=== PATIENT | male | born 1950 | race African-American/Black ===

== ENCOUNTER 2016-11-03 19:47 | Inpatient (IN) | payer OTHER ==
--- NOTE | 2016-11-03 20:24 | PDOC ---
History of Present Illness - General History Source: Patient Exam Limitations: No Limitations - History of Present Illness Initial Comments: 11/03/16 20:47 The patient is a 66 year old male with significant past medical history of etoh abuse, HIV, and hypertension who presents to the ED [facility] from [facility] with right upper quadrant pain/right lower chest pain. Patient reports last year he was diagnosed with a lung infection that required surgery and drainage of the infection. At that time, he also had a rib removed. He presents today with 3 days of increasing pain with associated nausea, vomiting and diarrhea. He also has complaints of chills, dry cough and decreased appetite. States he is compliant with medications if he is able to tolerate it. The patient denies fever, diaphoresis, SOB, and palpitations. Allergies: NKDA Social History: etoh abuse and drug use Past Surgical History: lung infection s/p surgery and rib removal PCP: None reported <Mabel Mosqueda - Last Filed: 11/04/16 04:56> - General History Source: Patient <Yaw Gutierrez - Last Filed: 11/05/16 19:23> - General Chief Complaint: Pain Stated Complaint: NAUSEA/VOMITING Time Seen by Provider: 11/03/16 20:17 Past History <Mabel Mosqueda - Last Filed: 11/04/16 04:56> - Past Medical History Anemia: No Asthma: No Cancer: No Cardiac Disorders: No CVA: No COPD: No CHF: No Dementia: No Diabetes: No GI Disorders: No Disorders: No HTN: Yes Hypercholesterolemia: No HIV: Yes Kidney Stones: No Liver Disease: No Suicide Attempt (Hx): No Seizures: Yes Thyroid Disease: No - Surgical History Abdominal Surgery: No Appendectomy: No Cardiac Surgery: No Cholecystectomy: No Lung Surgery: No Neurologic Surgery: No Orthopedic Surgery: No - Reproductive History Testicular Surgery: No - Psycho/Social/Smoking Cessation Hx Anxiety: No Suicidal Ideation: No Smoking History: Unknown if ever smoked Have you smoked in the past 12 months: No Number of Cigarettes Smoked Daily: 0 Cigars Per Day: 0 Information on smoking cessation initiated: No 'Breaking Loose' booklet given: 10/27/12 Hx Alcohol Use: Yes Drug/Substance Use Hx: Yes Substance Use Type: Alcohol Hx Substance Use Treatment: Yes (04/11/13 to 09/22/13 [facility]) <Yaw Gutierrez - Last Filed: 11/05/16 19:23> - Past Medical History Allergies/Adverse Reactions: Allergies Allergy/AdvReac Type Severity Reaction Status Date / Time No Known Allergies Allergy Verified 11/03/16 16:43 Home Medications: Ambulatory Orders Emtricitabine/Tenofovir [Truvada -] 1 tab PO DAILY 04/28/12 Efavirenz [Sustiva -] 600 mg PO HS #0 tablet 05/02/12 Review of Systems - Review of Systems Able to Perform ROS?: Yes Comments:: 11/03/16 20:48 CONSTITUTIONAL: +decreased appetite, chills Absent: fever, diaphoresis, generalized weakness, malaise HEENT: Absent: rhinorrhea, nasal congestion, throat pain, throat swelling, difficulty swallowing, mouth swelling, ear pain, eye pain, visual Changes CARDIOVASCULAR: +R lower chest pain Absent: syncope, palpitations, irregular heart rate, lightheadedness, peripheral edema RESPIRATORY: +dry cough Absent: shortness of breath, dyspnea with exertion, orthopnea, wheezing, stridor, hemoptysis GASTROINTESTINAL: +RUQ pain, nausea, vomiting, diarrhea Absent: abdominal distension, constipation , melena, hematochezia GENITOURINARY: Absent: dysuria, frequency, urgency, hesitancy, hematuria, flank pain, genital pain MUSCULOSKELETAL: Absent: myalgia, arthralgia, joint swelling SKIN: Absent: rash, itching, pallor NEUROLOGIC: Absent: headache, focal weakness or paresthesias, dizziness, unsteady gait, seizure, mental status changes, bladder or bowel incontinence PSYCHIATRIC: Absent: anxiety, depression, suicidal or homicidal ideation, hallucinations. <Mabel Mosqueda - Last Filed: 11/04/16 04:56> *Physical Exam - Vital Signs Last Vital Signs Temp Pulse Resp BP Pulse Ox 98.6 F 104 H 16 126/93 96 11/03/16 19:58 11/03/16 19:58 11/03/16 19:58 11/03/16 19:58 11/03/16 19:58 - Physical Exam Comments: 11/03/16 20:48 GENERAL: Well developed, well nourished. Awake and alert. Moderate distress. HEENT: Normocephalic, atraumatic. PERRLA, EOMI. No conjunctival pallor. Sclera are non- icteric. Moist mucous membranes. Oropharynx is clear. NECK: Supple. Full ROM. No JVD. Carotid pulses 2+ and symmetric, without bruits. No thyromegaly. No lymphadenopathy. CARDIOVASCULAR: Regular rate and rhythm. No murmurs, rubs, or gallops. Distal pulses are 2+ and symmetric. PULMONARY: Moderate respiratory distress. Conversational dyspnea. Decreased breath sounds bilaterally, greater on the left-side. Scattered wheezing. ABDOMINAL: Soft. Moderate abdominal tenderness, worsening in right upper quadrant. Non- distended. + guarding and slight rebound. No rigidity. Normoactive bowel sounds. MUSCULOSKELETAL Normal range of motion at all joints. No bony deformities or tenderness. No CVA tenderness. EXTREMITIES: No cyanosis. No clubbing. No edema. No calf tenderness. SKIN: Warm and dry. Normal capillary refill. No rashes. No jaundice. NEUROLOGICAL: Alert, awake, appropriate. Cranial nerves 2-12 intact. Moving all extremities. No focal gross neurological deficits. PSYCHIATRIC: Cooperative. Good eye contact. Appropriate mood and affect. <Mabel Mosqueda - Last Filed: 11/04/16 04:56> - Vital Signs Last Vital Signs Temp Pulse Resp BP Pulse Ox 98.6 F 104 H 16 126/93 96 11/03/16 19:58 11/03/16 19:58 11/03/16 19:58 11/03/16 19:58 11/03/16 19:58 <Yaw Gutierrez - Last Filed: 11/05/16 19:23> Heart Score/ECG Review - ECG Impressions Comment:: 11/04/16 00:26 Sinus tachycardia @106bpm Otherwise normal ECG <Mabel Mosqueda - Last Filed: 11/04/16 04:56> ED Treatment Course - LABORATORY CBC & Chemistry Diagram: 11/03/16 21:00 11/03/16 21:00 - RADIOLOGY Radiograph Interpretation: 11/04/16 04:57 EXAM: ABDOMEN & PELVIS CT W/O CONTR Reviewed by Imaging control area operator: FINDINGS:Liver: Diffuse low-attenuation suggesting fatty infiltration Spleen: Normal Pancreas: Normal Gallbladder: Mildly distended with small stones, sludge. There is no gallbladder wall thickening Stomach: There is a small hiatal hernia. There is gastrointestinal contrast in the distal esophagus suggesting a component of reflux. There is some thickening of the distal esophagus There is some thickening of the gastric antrum. Small bowel: Normal Large bowel: Normal Appendix: Not specifically visualized. Adrenals: No mass Kidneys: There is a 4 mm left renal calyceal stone and 7 mm left calyceal stone. There is no hydronephrosis cysts, or renal mass. Vascular : There are mild atherosclerotic changes in the abdominal aorta. Lymphatic column no enlarged nodes. Skeletal and normal Peritoneum: There is no free peritoneal air, or fluid. Pelvis: Prostate: Normal Rectum: Normal Inferior thorax colon there is a right sided pleural fluid collection which is small. There is a coarse calcification in the right lower lobe which appears partially collapsed IMPRESSION: Gastroesophageal reflux with mild esophagitis. Right-sided pleural fluid is nonspecific, possibly related to pleural inflammation, or pulmonary inflammation from aspiration. Correlation with prior chest radiographs is recommended. Nephrolithiasis. Correlation with urinalysis is recommended <Mabel Mosqueda - Last Filed: 11/04/16 04:56> - LABORATORY CBC & Chemistry Diagram: 11/04/16 06:42 11/05/16 10:00 <Yaw Gutierrez - Last Filed: 11/05/16 19:23> Medical Decision Making - Medical Decision Making 11/05/16 19:22 Dr. Gutierrez: The scribe's documentation has been prepared under my direction and personally reviewed by me in its entirery. I confirm that the note above accurately reflects all work, treatment, procedures, and medical decision making performed by me. <Yaw Gutierrez - Last Filed: 11/05/16 19:23> *DC/Admit/Observation/Transfer - Attestations Scribe Attestion: 11/03/16 20:48 Documentation prepared by Mabel Mosqueda, acting as medical staff assistant for Yaw Gutierrez MD <Mabel Mosqueda - Last Filed: 11/04/16 04:56> - Discharge Dispostion Admit: Yes <Yaw Gutierrez - Last Filed: 11/05/16 19:23> Diagnosis at time of Disposition: Alcohol dependence, Pleural effusion, right Abdominal pain Qualifiers: Abdominal location: right upper quadrant Qualified Code(s): R10.11 - Right upper quadrant pain
[2016-11-03] MEDS ORDERED: ONDANSETRON 4 MG/2 ML VIAL IVPUSH STA (20:29)
[2016-11-03] MEDS ORDERED: SODIUM CHLORIDE 1,000 ML IV STA (20:29)
[2016-11-03] MEDS ORDERED: morphine CARPU-JECT 2 MG/1 ML DISP.SYRIN IVPUSH ONE ×2 (20:29→23:54)
[2016-11-03] MEDS ORDERED: ONDANSETRON 4 MG/2 ML VIAL ONE (21:09)
[2016-11-03] MEDS ORDERED: morphine CARPU-JECT 4 MG/1 ML DISP.SYRIN ONE ×2 (21:09→23:56)
[2016-11-03 21:13] LABS: BASOPHIL 0.8 % (0-2.0); EOSINOPHIL 0.5 % (0-4.5); MCH 34.6 pg (25.7-33.7); MCHC 34.4 g/dl (32.0-35.9); MEAN CELL VOLUME 100.6 fl (80-96); MEAN PLT VOLUME 9.3 fl (7.5-11.1); NEUTROPHILS 58.1 % (42.8-82.8); PLATELET COUNT 132 K/MM3 (134-434); RDW 14.3 % (11.9-15.9)
[2016-11-03 21:24] LABS: INR 1.14 (0.82-1.09); PROTHROMBIN TIME (PATIENT) 12.6 SEC (9.98-11.88)
[2016-11-03 21:34] LABS: ALBUMIN 3.6 g/dl (3.4-5.0); AMYLASE 81 U/L (25-115); ANION GAP 21 (8-16); CALCIUM 8.2 mg/dL (8.5-10.1); CO2 20 mmol/L (21-32); COCKROFT - GAULT 102.94; CREATININE 0.8 mg/dL (0.7-1.3); GLUCOSE,RANDOM 89 mg/dL (74-106); MAGNESIUM 1.7 mg/dL (1.8-2.4); SGOT/AST 374 U/L (15-37); SGPT/ALT 113 U/L (12-78)
[2016-11-03 21:38] LABS: ALK PHOS 123 U/L (45-117); BILIRUBIN,TOTAL 1.1 mg/dL (0.2-1.0); TOT PROT 7.7 g/dl (6.4-8.2)
[2016-11-04] MEDS ORDERED: LORAZEPAM CARPU-JECT 2 MG/ML DISP.SYRIN IVPUSH ONE (00:22)
[2016-11-04] MEDS ORDERED: ONDANSETRON 4 MG/2 ML VIAL IVPUSH STA (00:23)
[2016-11-04] MEDS ORDERED: LORAZEPAM CARPU-JECT 2 MG/ML DISP.SYRIN ONE (00:28)
--- NOTE | 2016-11-04 00:54 | PN ---
<Justin Dow - Last Filed: 11/04/16 00:54> Teaching Attending Note Name of Resident: Justus Dailey <Tye Alcazar - Last Filed: 11/04/16 01:02> Teaching Attending Note ATTENDING PHYSICIAN STATEMENT I saw and evaluated the patient. I reviewed the resident's note and discussed the case with the resident. I agree with the resident's findings and plan as documented. SUBJECTIVE: The patient is a 66 year old male that presents to the ED from [facility] complaining of 1 month history of epigastric and RUQ abdominal pain that has increased in intensity over the course of time and appears to be 10/10 last 24 hours. He was originally hospitalized to detox due to alcohol abuse however, transferred to [facility] for further eval of abdominal pain. He reports occ nausea and vomiting, inability to tolerate fluids and food. He also reports tremors and signs of alcohol withdrawal. His last drink was consumed 24 hours ago. Complains of dizziness, tremors, gene weak, fatigue, and severe headache. PMH: HIV, HTN, and alcohol abuse. Questionable hx of empyema of right lung Allergies: NKDA Social History: alcohol abuse (approximately 4 pints of liquor daily). Family: Father: alcohol abuse Past Surgical History: Thoracotomy PCP: None reported OBJECTIVE: Vital Signs: Last Vital Signs Temp Pulse Resp BP Pulse Ox 98.6 F 104 H 16 126/93 96 11/03/16 19:58 11/03/16 19:58 11/03/16 19:58 11/03/16 19:58 11/03/16 19:58 Physical Exam: GENERAL: (+) Awake, alert, and fully oriented. Distress secondary to pain, tremors HEENT: (+) Poor dentition. Atraumatic. PERRLA, EOMI. dry mucous membranes. No JVD LUNGS: No distress, speaks full sentences, clear to auscultation bilaterally HEART: Regular rate and rhythm, normal S1 and S2, no murmurs, rubs or gallops, peripheral pulses normal and equal bilaterally. ABDOMEN: (+) Severe abdominal tend in epig area and RUQ area, guarding and rebound EXTREMITIES: Normal inspection, Normal range of motion, no edema. No clubbing or cyanosis. NEUROLOGICAL: Cranial nerves II through XII grossly intact. Normal speech, normal gait, no focal sensorimotor deficits SKIN: Warm, Dry, normal turgor, no rashes or lesions noted. Labs: CBCD WBC 4.0 K/mm3 (4.0-10.0) D 11/03/16 21:00 RBC 3.80 M/mm3 (4.00-5.60) L 11/03/16 21:00 Hgb 13.2 GM/dL (11.7-16.9) 11/03/16 21:00 Hct 38.3 % (35.4-49) 11/03/16 21:00 MCV 100.6 fl (80-96) H 11/03/16 21:00 MCHC 34.4 g/dl (32.0-35.9) 11/03/16 21:00 RDW 14.3 % (11.9-15.9) 11/03/16 21:00 Plt Count 132 K/MM3 (134-434) L D 11/03/16 21:00 MPV 9.3 fl (7.5-11.1) 11/03/16 21:00 CMP Sodium 135 mmol/L (136-145) L 11/03/16 21:00 Potassium 4.3 mmol/L (3.5-5.1) 11/03/16 21:00 Chloride 94 mmol/L (98-107) L 11/03/16 21:00 Carbon Dioxide 20 mmol/L (21-32) L D 11/03/16 21:00 Anion Gap 21 (8-16) H 11/03/16 21:00 BUN 12 mg/dL (7-18) D 11/03/16 21:00 Creatinine 0.8 mg/dL (0.7-1.3) 11/03/16 21:00 Creat Clearance w eGFR > 60 (>60) 11/03/16 21:00 Calcium 8.2 mg/dL (8.5-10.1) L 11/03/16 21:00 Total Bilirubin 1.1 mg/dL (0.2-1.0) H D 11/03/16 21:00 AST 374 U/L (15-37) H D 11/03/16 21:00 ALT 113 U/L (12-78) H D 11/03/16 21:00 Alkaline Phosphatase 123 U/L (45-117) H D 11/03/16 21:00 Total Protein 7.7 g/dl (6.4-8.2) 11/03/16 21:00 Albumin 3.6 g/dl (3.4-5.0) 11/03/16 21:00 Imaging: EXAM#: TYPE/EXAM: RESULT: [id number] CT/ABDOMEN PELVIS CT W/O CONTR [id number] CT/ CHEST CT WITHOUT CONTRAST Chest CT without contrast Clinical information: right lower chest pain Multiplanar imaging was performed. As requested intravenous contrast was not administered. No prior CT studies are available at this facility for direct comparison. A small right-sided pleural effusion is seen which may be loculated. Linear and curvilinear material consistent with surgical sutures are seen within the right lower chest posteriorly. There is mild to moderate right hilar posterior retraction probably on a postsurgical basis. Apparent postsurgical changes seen involving the right midthoracic ribs posteriorly and laterally. No pneumothorax or infiltrate is seen. There is no obvious lymphadenopathy on noncontrast imaging. No definite cardiac enlargement is noted. There is no pericardial effusion. No aortic aneurysm is seen. Along the right mid diaphragm ventrally note is made of an apparent small defect into which a small portion of the right hepatic lobe bulges. The visualized osseous structures demonstrate no obvious CT evidence of acute pathology or neoplastic disease. IMPRESSION: A small right pleural effusion is noted which may be loculated. Postsurgical changes are seen within the right lower chest. There is mild focal bulging along the right diaphragm ventrally which contains a small portion of the right hepatic lobe. This finding may be on the basis of a small diaphragmatic hernia versus representing a lobulated contour of the diaphragm. Direct comparison with previous CT studies is suggested if available from a different facility as well as close follow-up CT. Abdomen and pelvis CT without contrast Clinical information: right upper quadrant pain Multiplanar imaging was performed. As requested no intravenous or enteric contrast was administered. There is prominent diffuse fatty infiltration of the liver with associated mild hepatomegaly. No obvious hepatic mass lesion is seen on noncontrast imaging. As discussed in the chest CT report note is made of mild focal bulging along the right mid diaphragm ventrally which may represent a small diaphragmatic hernia containing a small portion of the right hepatic lobe. There is no evidence of pneumoperitoneum, free intraperitoneal fluid or bowel obstruction. A 7 mm nonobstructing left renal lower pole calculus is noted. There is a 1 mm nonobstructing right renal lower pole calculus. No radiopaque gallbladder calculus is identified. The gallbladder demonstrates mildly increased intraluminal density suggestive of inspissated bile/sludge. There is no definite gallbladder wall thickening or pericholecystic fluid accumulation. No biliary tract dilatation is seen. The spleen, pancreas, adrenal glands demonstrate no discrete noncontrast abnormality allowing for respiratory motion artifact. There is no aortic aneurysm. No definite lymphadenopathy is seen. There is possible partial visualization of the appendix. No indirect CT signs of acute appendicitis are noted. Sigmoid diverticulosis is seen without evidence of acute diverticulitis. The urinary bladder is somewhat distended with a current volume of approximately 500 mL. There is no gross small bowel abnormality allowing for motion artifact. The visualized osseous structures demonstrate no obvious CT evidence of acute pathology or neoplastic disease. IMPRESSION: No definite CT findings of acute pathology identified. Prominent diffuse hepatic steatosis. As also noted in the chest CT report the right mid diaphragm ventrally demonstrates mild focal superior bulging which could represent a small diaphragmatic hernia containing a small portion of the right hepatic lobe versus representing an intact diaphragm with a lobulated contour. Inspissated bile/sludge is noted within the gallbladder lumen. Bilateral nonobstructing renal calculi. The current urinary bladder volume is approximately 500 mL which could be on a physiologic basis versus early retention. Correlate clinically. Sigmoid diverticulosis. Reported By: Alexander Fu MD 11/03/16 8623 ASSESSMENT AND PLAN: 1. Epigas and RUQ ab pain 2. Positive guarding and peritoneal signs on exam 3. Hx of HIV with unknown CD4 status 4. Evidence of loculated pleural effusion on the right side consistent with prior hx of empyema for which pt underwent for ectomy 5. Evidence of gallbladder sludge 6. Radiographic evidence of diaphragmatic hernia 7. Suspected urinary retention 8. Prerenal azotemia 9. Alcohol withdrawal 1. 1 month history of epigastric and ruq ab pain that now has progressed to 10/ 10 in intensity and is associated with rebound and guarding. CT abdomen and pelvis does not show any acute abnormalities that could correlate with intensity of his symptoms, however this was a non contrast study. There is evidence of gallbladder sludge and biliary obstruction cannot be excluded. Peptic ulcer disease is a possibility as well. - Stat dose of Zosyn - Keep NPO - IVF - IV PPI - IV morphine for pain control - Will obtain CT scan with oral contrast for better eval - Serial abdominal exams - Hidescan when stable - Monitor liver enzymes - Consider surgical evaluation if no improvement 2. History of HIV- unknow CD4 status - Obtain CD4 count and viral load 3. Acute alcohol withdrawal -IVF with diamin, multivitamin, and folic acid -Start alcohol withdrawal protocol with IV ativan PRN 4. Possible urinary retention -Place torres catheter Admit to inpatient. Documentation prepared by Tye Alcazar, acting as medical device for Dr. Victor M MD.
--- NOTE | 2016-11-04 00:58 | HP ---
CHIEF COMPLAINT: RUQ Pain PCP: Does not see a regular PCP HISTORY OF PRESENT ILLNESS: Patient is a 64 year old male with significant PMH of Alcohol abuse, HTN, HIV who presents to ED [facility] detox with abdominal pain. Patient states he has had epigastric-RUQ pain intermittently for the last 1 month that has progressive gotten more intense. Over the last 24 hours, the pain has become severe 10/10 and is concentrated in the RUQ. He was in [facility] for alcohol detox but was sent here upon increase in abdominal pain for further evaluation. Patient also notes nausea, vomiting & diarrhea in the last few days. Last drink was 24 hours ago. ER course was notable for: (1)CT Chest shows diaphragmatic hernia with right hepatic lobe bulging (2)afebrile, without leukocytosis, stable vitals (3)pain management & alcohol withdrawal protocol started in ED Recent Travel: NONE REPORTED PAST MEDICAL HISTORY: ABOVE PAST SURGICAL HISTORY: THORACOTOMY Social History: Smoking: FORMER Alcohol: 4 PINTS OF HARD LIQUOR DAILY Drugs: NONE REPORTED Family History: Father: Alcohol abuse Mother: NONE REPORTED Allergies No Known Allergies Allergy (Verified 11/03/16 16:43) HOME MEDICATIONS: Home Medications Medication Instructions Recorded Emtricitabine/Tenofovir [Truvada -] 1 tab PO DAILY 04/28/12 Efavirenz [Sustiva -] 600 mg PO HS #0 tablet 05/02/12 REVIEW OF SYSTEMS CONSTITUTIONAL: (+)fever, chills Absent: diaphoresis, generalized weakness, malaise, loss of appetite, weight change HEENT: Absent: rhinorrhea, nasal congestion, throat pain, throat swelling, difficulty swallowing, mouth swelling, ear pain, eye pain, visual changes CARDIOVASCULAR: Absent: chest pain, syncope, palpitations, irregular heart rate, lightheadedness , peripheral edema RESPIRATORY: Absent: cough, shortness of breath, dyspnea with exertion, orthopnea, wheezing, stridor, hemoptysis GASTROINTESTINAL: (+)abdominal pain, diarrhea, vomiting Absent: abdominal distension, constipation, melena, hematochezia GENITOURINARY: Absent: dysuria, frequency, urgency, hesitancy, hematuria, flank pain, genital pain MUSCULOSKELETAL: Absent: myalgia, arthralgia, joint swelling, back pain, neck pain SKIN: Absent: rash, itching, pallor HEMATOLOGIC/IMMUNOLOGIC: Absent: easy bleeding, easy bruising, lymphadenopathy, frequent infections ENDOCRINE: Absent: unexplained weight gain, unexplained weight loss, heat intolerance, cold intolerance NEUROLOGIC: Absent: headache, focal weakness or paresthesias, dizziness, unsteady gait, seizure, mental status changes, bladder or bowel incontinence PSYCHIATRIC: Absent: anxiety, depression, suicidal or homicidal ideation, hallucinations. PHYSICAL EXAMINATION GENERAL: Awake, alert, and fully oriented, in moderate distress during movement/ palpation of abdomen. Tremors in bilateral upper extremities HEENT: Atraumatic, EOMI, PERRLA, No lymphadenopathy noted, dry mucous membranes LUNGS: Breath sounds equal, clear to auscultation bilaterally. No wheezes, and no crackles. No accessory muscle use. HEART: Regular rate and rhythm, normal S1 and S2 without murmur, rub or gallop. ABDOMEN: (+) guarding & rigidity; moderate-severe tenderness to palpation diffusely but most notably in RUQ EXTREMITIES: 2+ pulses, warm, well-perfused. No calf tenderness. No peripheral edema. NEUROLOGICAL: Cranial nerves II-XII intact. Normal speech. Unable to observe gait due to clinical condition. PSYCHIATRIC: Cooperative. Good eye contact. Appropriate mood and affect. SKIN: Warm, dry, normal turgor, no rashes or lesions noted, normal capillary refill. Vital Signs Temperature 98.6 F 11/03/16 19:58 Pulse Rate 104 H 11/03/16 19:58 Respiratory Rate 16 11/03/16 19:58 Blood Pressure 126/93 11/03/16 19:58 O2 Sat by Pulse Oximetry (%) 96 11/03/16 19:58 IMAGING: CT Chest: IMPRESSION: A small right pleural effusion is noted which may be loculated. Postsurgical changes are seen within the right lower chest. There is mild focal bulging along the right diaphragm ventrally which contains a small portion of the right hepatic lobe. This finding may be on the basis of a small diaphragmatic hernia versus representing a lobulated contour of the diaphragm. Direct comparison with previous CT studies is suggested if available from a different facility as well as close follow-up CT. CT Abdomen Pelvis w/o contrast: IMPRESSION: No definite CT findings of acute pathology identified. Prominent diffuse hepatic steatosis. As also noted in the chest CT report the right mid diaphragm ventrally demonstrates mild focal superior bulging which could represent a small diaphragmatic hernia containing a small portion of the right hepatic lobe versus representing an intact diaphragm with a lobulated contour. Inspissated bile/sludge is noted within the gallbladder lumen. Bilateral nonobstructing renal calculi. The current urinary bladder volume is approximately 500 mL which could be on a physiologic basis versus early retention. Correlate clinically. Sigmoid diverticulosis. ASSESSMENT/PLAN: #RUQ/Epigastric Pain, Diaphragmatic Hernia vs PUD vs Biliary obstruction -CT shows diaphragmatic hernia on RIGHT, which contains a small portion of the right hepatic lobe -will repeat imaging with oral contrast to r/o acute abdomen due to perforation -Zosyn given in ED -NPO, IVF NS@75cc/hr, IV PPI -Morphine pain management -monitor LFTs -may require surgery consult, pending CT results & serial abdominal examinations #Gallbladder sludge noted on CT -may need HIDA scan when stable #HIV History, unknown CD4 -states he takes his anti-retrovirals daily -restarted home meds: Truvada, Sustiva -needs CD4, Viral load testing #Alcohol Abuse w/ withdrawal symptoms -Librium taper protocol started -Thiamine, multivitamin, Folic Acid -to return to [facility] once discharged #Possible urinary retention -Pirce catheter placed, re-evaluate Prophylaxis -holding anticoagulation until we can r/o PUD or perforations -IV PPI FEN -NPO, IVF NS@75, Monitor electrolytes Visit type - Emergency Visit Emergency Visit: Yes ED Registration Date: 11/03/16 Care time: The patient presented to the Emergency Department on the above date and was hospitalized for further evaluation of their emergent condition. - New Patient This patient is new to me today: Yes Date on this admission: 11/04/16 - Critical Care Critical Care patient: No
[2016-11-04] MEDS ORDERED: chlordiazePOXIDE HCL 25 MG CAPSULE PO PRN (01:03)
[2016-11-04] MEDS: SODIUM CHLORIDE 1,000 ML IV SCH ×2 (01:28→09:53)
[2016-11-04] MEDS ORDERED: PANTOPRAZOLE SODIUM 40 MG VIAL ONE (03:05)
[2016-11-04] MEDS: PANTOPRAZOLE SODIUM 100 ML IVPB SCH ×2 (03:19→12:50)
[2016-11-04] MEDS: chlordiazePOXIDE HCL 25 MG CAPSULE PO SCH ×4 (05:09→22:31)
[2016-11-04] MEDS ORDERED: chlordiazePOXIDE HCL 25 MG CAPSULE ONE (05:10)
[2016-11-04 06:57] LABS: EOSINOPHIL 0.8 % (0-4.5); MCH 35.2 pg (25.7-33.7); MCHC 34.5 g/dl (32.0-35.9); MEAN CELL VOLUME 101.8 fl (80-96); MEAN PLT VOLUME 8.9 fl (7.5-11.1); NEUTROPHILS 62.9 % (42.8-82.8); PLATELET COUNT 102 K/MM3 (134-434); RDW 13.9 % (11.9-15.9); WHITE BLOOD COUNT 4.3 K/mm3 (4.0-10.0)
[2016-11-04 07:24] LABS: ALBUMIN 3.6 g/dl (3.4-5.0); ALK PHOS 114 U/L (45-117); ANION GAP 16 (8-16); BILIRUBIN,TOTAL 1.3 mg/dL (0.2-1.0); CALCIUM 8.4 mg/dL (8.5-10.1); CO2 25 mmol/L (21-32); COCKROFT - GAULT 117.64; CREATININE 0.7 mg/dL (0.7-1.3); GLUCOSE,RANDOM 92 mg/dL (74-106); SGPT/ALT 105 U/L (12-78); TOT PROT 7.5 g/dl (6.4-8.2)
[2016-11-04 07:39] LABS: SGOT/AST 298 U/L (15-37)
[2016-11-04 09:10] LABS: URINE APPEARANCE CLEAR; URINE BILIRUBIN NEGATIVE (NEGATIVE); URINE COLOR YELLOW; URINE GLUCOSE (UA) NEGATIVE (NEGATIVE); URINE KETONE 2+ (NEGATIVE); URINE LEUK ESTERASE NEGATIVE (NEGATIVE); URINE NITRITE NEGATIVE (NEGATIVE); URINE UROBILINOGEN NEGATIVE E.U./dl (0.2-1.0)
[2016-11-04 09:14] LABS: URINE BLOOD 2+ (NEGATIVE); URINE PROTEIN 2+ (NEGATIVE)
[2016-11-04 09:16] LABS: URINE HYALINE CAST 3 /lpf; URINE MUCUS RARE; URINE RBC 2 /hpf (0-3); URINE WBC 1 /hpf (3-5)
[2016-11-04] MEDS: ONDANSETRON 4 MG/2 ML VIAL IVPB PRN ×2 (09:53→18:30)
[2016-11-04] MEDS: MULTIVITAMINS (DAILY MVI) TABLET (FP) PO SCH (09:54)
[2016-11-04] MEDS: THIAMINE HCL 100 MG TABLET (FP) PO SCH (09:54)
[2016-11-04] MEDS ORDERED: PIPERACILLIN/TAZOB 3.375 GM/50 ML PRE-DOCKED IVPB SCH ×2 (10:00)
[2016-11-04] MEDS: morphine CARPU-JECT 2 MG/1 ML DISP.SYRIN IVPUSH PRN ×2 (11:18→17:11)
--- NOTE | 2016-11-04 12:32 | EKG ---
Test Reason : Blood Pressure : / mmHG Vent. Rate : 106 BPM Atrial Rate : 106 BPM P-R Int : 146 ms QRS Dur : 068 ms QT Int : 330 ms P-R-T Axes : 066 064 054 degrees QTc Int : 438 ms SINUS TACHYCARDIA OTHERWISE NORMAL ECG NO PREVIOUS ECGS AVAILABLE Confirmed by MALIK KUNZ, ERIC ([id number]) on 11/04/2016 12:32:35 PM Referred By: Confirmed By:ERIC GAN MD
[2016-11-04] MEDS: METRONIDAZOLE 500 MG PREMIXED 100 ML IVPB SCH ×2 (16:00→20:30)
[2016-11-04 17:33] VITALS: BMI 23.3
[2016-11-04] MEDS: CEFTRIAXONE 50 ML IVPB SCH (17:43)
[2016-11-04] MEDS: EMTRICITABINE 200MG/TENOFOVIR 300MG PO SCH (17:43)
[2016-11-04] MEDS ORDERED: morphine CARPU-JECT 2 MG/1 ML DISP.SYRIN IVPUSH PRN (18:07)
[2016-11-04] MEDS ORDERED: SODIUM CHLORIDE 1,000 ML IV SCH (18:07)
[2016-11-04] MEDS: EFAVIRENZ 600 MG TABLET PO SCH (22:31)
[2016-11-05] MEDS: METRONIDAZOLE 500 MG PREMIXED 100 ML IVPB SCH ×3 (03:28→17:14)
[2016-11-05] MEDS: chlordiazePOXIDE HCL 25 MG CAPSULE PO SCH ×4 (05:37→22:46)
[2016-11-05] MEDS: MULTIVITAMINS (DAILY MVI) TABLET (FP) PO SCH (09:50)
[2016-11-05] MEDS: THIAMINE HCL 100 MG TABLET (FP) PO SCH (09:50)
[2016-11-05] MEDS: EMTRICITABINE 200MG/TENOFOVIR 300MG PO SCH (09:51)
[2016-11-05] MEDS: CEFTRIAXONE 50 ML IVPB SCH (10:45)
[2016-11-05 11:07] LABS: ALBUMIN 3.8 g/dl (3.4-5.0); ALK PHOS 114 U/L (45-117); ANION GAP 18 (8-16); BILIRUBIN,TOTAL 1.4 mg/dL (0.2-1.0); CALCIUM 8.9 mg/dL (8.5-10.1); CO2 21 mmol/L (21-32); COCKROFT - GAULT 89.17; CREATININE 0.8 mg/dL (0.7-1.3); GLUCOSE,RANDOM 92 mg/dL (74-106); SGPT/ALT 110 U/L (12-78); TOT PROT 7.8 g/dl (6.4-8.2)
[2016-11-05 11:12] LABS: SGOT/AST 267 U/L (15-37)
[2016-11-05] MEDS: PANTOPRAZOLE SODIUM 100 ML IVPB SCH (11:22)
[2016-11-05] MEDS ORDERED: amLODIPine BESYLATE 5 MG TABLET (FP) PO ONE (17:30)
--- NOTE | 2016-11-05 17:30 | PN ---
Physical Exam: SUBJECTIVE: Patient seen and examined. He is angry because he is hungry and wants to eat. He says his friend brought him kayla castaneda last night OBJECTIVE: Vital Signs Period Temp Pulse Resp BP Sys/Mckeon Pulse Ox Last 24 Hr 97.9 F-99.5 F 99-115 20-20 149-159/68-104 99-99 PE Neuro: alert, awake, cn 2-12intact Pulm: CTAB CV: s1 s2 rrr no mrg Abd: s nt nd + bs ExT: warm, no le edema Laboratory Results - last 24 hr 11/05/16 10:00 Sodium 133 L Potassium 3.7 Chloride 94 L Carbon Dioxide 21 Anion Gap 18 H BUN 7 D Creatinine 0.8 Creat Clearance w eGFR > 60 Random Glucose 92 Calcium 8.9 Total Bilirubin 1.4 H AST 267 H ALT 110 H Alkaline Phosphatase 114 Total Protein 7.8 Albumin 3.8 Active Medications Generic Name Dose Route Start Last Admin Trade Name Freq PRN Reason Stop Dose Admin Chlordiazepoxide HCl 25 mg 11/04/16 01:03 Librium - PO 11/07/16 01:02 Q4H PRN WITHDRAWAL(CONT SUBST) Chlordiazepoxide HCl 25 mg 11/05/16 05:00 11/05/16 17:14 Librium - PO 11/05/16 23:01 25 mg [id number] MARGO Administration Chlordiazepoxide HCl 15 mg 11/06/16 05:00 Librium - PO 11/06/16 23:01 [id number] MARGO Efavirenz 600 mg 11/04/16 22:00 11/04/16 22:31 Sustiva - PO 600 mg HS MARGO Administration Emtricitabine/Tenofovir 1 tab 11/04/16 10:00 11/05/16 09:51 Truvada PO 1 tab DAILY MARGO Administration Pantoprazole Sodium 100 mls @ 200 mls/hr 11/04/16 02:00 11/05/16 11:22 Protonix 40mg Ivpb (Pre-Docked) IVPB 200 mls/hr DAILY MARGO Administration Ceftriaxone Sodium 50 mls @ 100 mls/hr 11/04/16 15:30 11/05/16 10:45 Rocephin 1gm Ivpb (Pre-Docked) IVPB 100 mls/hr DAILY MARGO Administration Metronidazole 100 mls @ 100 mls/hr 11/04/16 15:30 11/05/16 17:14 Flagyl 500mg Premixed Ivpb - IVPB 100 mls/hr Q8H-IV MARGO Administration Sodium Chloride 1,000 mls @ 83 mls/hr 11/04/16 18:07 11/04/16 18:20 Normal Saline - IV 83 mls/hr ASDIR MARGO Administration Morphine Sulfate 2 mg 11/04/16 18:07 Morphine Injection - IVPUSH Q4H PRN PAIN Multivitamins/Minerals/Vitamin C 1 tab 11/04/16 10:00 11/05/16 09:50 Tab-A-Vit - PO 1 tab DAILY MARGO Administration Ondansetron HCl 4 mg 11/04/16 00:58 11/04/16 18:30 Zofran Injection IVPB 4 mg Q6H PRN Administration NAUSEA Thiamine HCl 100 mg 11/04/16 10:00 11/05/16 09:50 Vitamin B1 - PO 100 mg DAILY MARGO Administration Assessment: 64 year old male with PMHx of Alcohol abuse, HTN, HIV admitted from [facility] detox with epigastric RUQ pain intermittent [id number], worsening overnight. Plan: 1. Cholelithiasis and sludge, likely passed stone - HIDA scan negative - Advance diet - LFTs down trending - Continue flagyl/ceftriaxone (day 2) 2. HIV History, unknown CD4 - Continue Truvada, Sustiva 3. Alcohol Abuse w/ withdrawal symptoms -Librium taper protocol underway -Thiamine, multivitamin, Folic Acid - To return to [facility] on discharge 4. HTN - Start norvasc 5. dvt ppx - Lovenox sq Visit type - Emergency Visit Emergency Visit: Yes ED Registration Date: 11/03/16 Care time: The patient presented to the Emergency Department on the above date and was hospitalized for further evaluation of their emergent condition. - New Patient This patient is new to me today: Yes Date on this admission: 11/05/16 - Critical Care Critical Care patient: No
[2016-11-05] MEDS ORDERED: PT OWN MED DRAWER 7, Y5N ONE (22:26)
[2016-11-05] MEDS: EFAVIRENZ 600 MG TABLET PO SCH (22:47)
[2016-11-06] MEDS: METRONIDAZOLE 500 MG PREMIXED 100 ML IVPB SCH ×3 (02:10→18:19)
[2016-11-06] MEDS: chlordiazePOXIDE 5 MG CAPSULE PO SCH ×4 (05:17→22:24)
[2016-11-06] MEDS: CEFTRIAXONE 50 ML IVPB SCH (10:48)
[2016-11-06] MEDS: ENOXAPARIN NA (PORCINE) 40 MG/0.4 ML DISP.SYRIN SQ SCH (10:49)
[2016-11-06] MEDS: THIAMINE HCL 100 MG TABLET (FP) PO SCH (10:49)
[2016-11-06] MEDS: MULTIVITAMINS (DAILY MVI) TABLET (FP) PO SCH (10:49)
[2016-11-06] MEDS: amLODIPine BESYLATE 5 MG TABLET (FP) PO SCH (10:49)
[2016-11-06] MEDS: EMTRICITABINE 200MG/TENOFOVIR 300MG PO SCH (10:50)
[2016-11-06 11:00] LABS: ALBUMIN 3.6 g/dl (3.4-5.0); ANION GAP 13 (8-16); CALCIUM 9.2 mg/dL (8.5-10.1); CO2 20 mmol/L (21-32); COCKROFT - GAULT 101.91; CREATININE 0.7 mg/dL (0.7-1.3); GLUCOSE,RANDOM 147 mg/dL (74-106); SGOT/AST 188 U/L (15-37); SGPT/ALT 95 U/L (12-78)
[2016-11-06 11:02] LABS: ALK PHOS 103 U/L (45-117); BILIRUBIN,TOTAL 1.1 mg/dL (0.2-1.0); TOT PROT 7.5 g/dl (6.4-8.2)
[2016-11-06] MEDS ORDERED: POTASSIUM CHLORIDE ORAL LIQUID 20 MEQ/15 ML PO ONE (11:30)
[2016-11-06] MEDS: PANTOPRAZOLE SODIUM 100 ML IVPB SCH (13:28)
--- NOTE | 2016-11-06 17:40 | PN ---
Physical Exam: SUBJECTIVE: Patient seen and examined. He says he feels much better, he would like to go home soon. Denies fever, chills, abd pain, n/v. OBJECTIVE: Vital Signs Period Temp Pulse Resp BP Sys/Mckeon Pulse Ox Last 24 Hr 98.9 F-99.2 F 88-110 20-20 120-153/70-97 99 PE Neuro: alert, awake, cn 2-12intact Pulm: CTAB CV: s1 s2 rrr no mrg Abd: s nt nd + bs ExT: warm, no le edema Laboratory Results - last 24 hr 11/06/16 10:10 Sodium 135 L Potassium 3.2 L Chloride 102 Carbon Dioxide 20 L Anion Gap 13 BUN 10 D Creatinine 0.7 Creat Clearance w eGFR > 60 Random Glucose 147 H D Calcium 9.2 Total Bilirubin 1.1 H D AST 188 H D ALT 95 H Alkaline Phosphatase 103 Total Protein 7.5 Albumin 3.6 Active Medications Generic Name Dose Route Start Last Admin Trade Name Freq PRN Reason Stop Dose Admin Amlodipine Besylate 5 mg 11/06/16 10:00 11/06/16 10:49 Norvasc - PO 5 mg DAILY MARGO Administration Chlordiazepoxide HCl 25 mg 11/04/16 01:03 Librium - PO 11/07/16 01:02 Q4H PRN WITHDRAWAL(CONT SUBST) Chlordiazepoxide HCl 15 mg 11/06/16 05:00 11/06/16 10:49 Librium - PO 11/06/16 23:01 15 mg [id number]-INC MARGO Administration Efavirenz 600 mg 11/04/16 22:00 11/05/16 22:47 Sustiva - PO 600 mg HS MARGO Administration Emtricitabine/Tenofovir 1 tab 11/04/16 10:00 11/06/16 10:50 Truvada PO 1 tab DAILY MARGO Administration Enoxaparin Sodium 40 mg 11/06/16 10:00 11/06/16 10:49 Lovenox - SQ 40 mg DAILY MARGO Administration Pantoprazole Sodium 100 mls @ 200 mls/hr 11/04/16 02:00 11/06/16 13:28 Protonix 40mg Ivpb (Pre-Docked) IVPB 200 mls/hr DAILY MARGO Administration Ceftriaxone Sodium 50 mls @ 100 mls/hr 11/04/16 15:30 11/06/16 10:48 Rocephin 1gm Ivpb (Pre-Docked) IVPB 100 mls/hr DAILY MARGO Administration Metronidazole 100 mls @ 100 mls/hr 11/04/16 15:30 11/06/16 11:37 Flagyl 500mg Premixed Ivpb - IVPB 100 mls/hr Q8H-IV MARGO Administration Multivitamins/Minerals/Vitamin C 1 tab 11/04/16 10:00 11/06/16 10:49 Tab-A-Vit - PO 1 tab DAILY MARGO Administration Thiamine HCl 100 mg 11/04/16 10:00 11/06/16 10:49 Vitamin B1 - PO 100 mg DAILY MARGO Administration Assessment: 64 year old male with PMHx of Alcohol abuse, HTN, HIV admitted from [facility] detox with epigastric RUQ pain intermittent [id number], worsening overnight. Plan: 1. Cholelithiasis and sludge, likely passed stone - HIDA scan negative - Tolerating diet - LFTs down trending - Continue flagyl/ceftriaxone (day 3) 2. HIV History, unknown CD4 - Continue Truvada, Sustiva 3. Alcohol Abuse w/ withdrawal symptoms -Librium taper protocol to be completed tonight -Thiamine, multivitamin, Folic Acid - To return to [facility] on discharge 4. HTN - Norvasc 5mg daily 5. dvt ppx - Lovenox sq Dispo: - Home if LFT's improved Visit type - Emergency Visit Emergency Visit: Yes ED Registration Date: 11/03/16 Care time: The patient presented to the Emergency Department on the above date and was hospitalized for further evaluation of their emergent condition. - New Patient This patient is new to me today: No - Critical Care Critical Care patient: No
[2016-11-06] MEDS: EFAVIRENZ 600 MG TABLET PO SCH (22:20)
[2016-11-07] MEDS: METRONIDAZOLE 500 MG PREMIXED 100 ML IVPB SCH ×2 (01:22→10:53)
[2016-11-07] MEDS: MULTIVITAMINS (DAILY MVI) TABLET (FP) PO SCH (09:21)
[2016-11-07] MEDS: ENOXAPARIN NA (PORCINE) 40 MG/0.4 ML DISP.SYRIN SQ SCH (09:21)
[2016-11-07] MEDS: amLODIPine BESYLATE 5 MG TABLET (FP) PO SCH (09:21)
[2016-11-07] MEDS: THIAMINE HCL 100 MG TABLET (FP) PO SCH (09:21)
[2016-11-07] MEDS: CEFTRIAXONE 50 ML IVPB SCH (09:21)
[2016-11-07] MEDS: EMTRICITABINE 200MG/TENOFOVIR 300MG PO SCH (10:09)
[2016-11-07] MEDS: PANTOPRAZOLE SODIUM 100 ML IVPB SCH (10:10)
[2016-11-07 10:18] LABS: ALBUMIN 3.2 g/dl (3.4-5.0); ANION GAP 8 (8-16); CALCIUM 8.6 mg/dL (8.5-10.1); CO2 26 mmol/L (21-32); COCKROFT - GAULT 101.91; CREATININE 0.7 mg/dL (0.7-1.3); GLUCOSE,RANDOM 143 mg/dL (74-106); SGOT/AST 92 U/L (15-37); SGPT/ALT 66 U/L (12-78)
[2016-11-07 10:19] LABS: ALK PHOS 78 U/L (45-117); BILIRUBIN,TOTAL 0.7 mg/dL (0.2-1.0); TOT PROT 6.5 g/dl (6.4-8.2)
[2016-11-07] MEDS ORDERED: POTASSIUM CHLORIDE TABS 20 MEQ TABLET.ER (FP) PO SCH (11:45)
[2016-11-07 14:24] VITALS: BP 109/69; PULSE 101; TEMP 98.9
--- NOTE | 2016-11-24 15:43 | DS ---
Physical Exam: SUBJECTIVE: Patient seen and examined OBJECTIVE: Vital Signs Temperature 98.9 F 11/07/16 10:00 Pulse Rate 101 H 11/07/16 10:00 Respiratory Rate 18 11/07/16 10:00 Blood Pressure 109/69 11/07/16 10:00 O2 Sat by Pulse Oximetry (%) 100 11/07/16 09:00 PHYSICAL EXAM GENERAL: The patient is awake, alert, and fully oriented, in no acute distress. HEAD: Normal with no signs of trauma. EYES: PERRL, extraocular movements intact, sclera anicteric, conjunctiva clear. ENT: Ears normal, nares patent, oropharynx clear without exudates, moist mucous membranes. NECK: Trachea midline, full range of motion, supple. LUNGS: Breath sounds equal, clear to auscultation bilaterally, no wheezes, no crackles, no accessory muscle use. HEART: Regular rate and rhythm, S1, S2 without murmur, rub or gallop. ABDOMEN: Soft, nontender, nondistended, normoactive bowel sounds, no guarding, no rebound, no hepatosplenomegaly, no masses. EXTREMITIES: 2+ pulses, warm, well-perfused, no edema. NEUROLOGICAL: Cranial nerves II through XII grossly intact. Normal speech, gait not observed. PSYCH: Normal mood, normal affect. SKIN: Warm, dry, normal turgor, no rashes or lesions noted. LABS CBCD WBC 4.3 K/mm3 (4.0-10.0) 11/04/16 06:42 RBC 3.64 M/mm3 (4.00-5.60) L 11/04/16 06:42 Hgb 12.8 GM/dL (11.7-16.9) 11/04/16 06:42 Hct 37.0 % (35.4-49) 11/04/16 06:42 MCV 101.8 fl (80-96) H 11/04/16 06:42 MCHC 34.5 g/dl (32.0-35.9) 11/04/16 06:42 RDW 13.9 % (11.9-15.9) 11/04/16 06:42 Plt Count 102 K/MM3 (134-434) L D 11/04/16 06:42 MPV 8.9 fl (7.5-11.1) 11/04/16 06:42 CMP Sodium 139 mmol/L (136-145) 11/07/16 09:15 Potassium 3.1 mmol/L (3.5-5.1) L 11/07/16 09:15 Chloride 105 mmol/L (98-107) 11/07/16 09:15 Carbon Dioxide 26 mmol/L (21-32) D 11/07/16 09:15 Anion Gap 8 (8-16) 11/07/16 09:15 BUN 9 mg/dL (7-18) 11/07/16 09:15 Creatinine 0.7 mg/dL (0.7-1.3) 11/07/16 09:15 Creat Clearance w eGFR > 60 (>60) 11/07/16 09:15 Calcium 8.6 mg/dL (8.5-10.1) 11/07/16 09:15 Total Bilirubin 0.7 mg/dL (0.2-1.0) D 11/07/16 09:15 AST 92 U/L (15-37) H D 11/07/16 09:15 ALT 66 U/L (12-78) D 11/07/16 09:15 Alkaline Phosphatase 78 U/L (45-117) D 11/07/16 09:15 Total Protein 6.5 g/dl (6.4-8.2) 11/07/16 09:15 Albumin 3.2 g/dl (3.4-5.0) L 11/07/16 09:15 HOSPITAL COURSE: Date of Admission:11/03/16 Date of Discharge: 11/07/16 64 year old male with PMHx of Alcohol abuse, HTN, HIV admitted from [facility] detox with epigastric RUQ pain intermittent [id number], worsening overnight. Plan: 1. Cholelithiasis and sludge, likely passed stone - HIDA scan negative - Tolerating diet - LFTs down trending - Treated with flagyl/ceftriaxone x 4 days 2. HIV History, unknown CD4 - Continued Truvada, Sustiva 3. Alcohol Abuse w/ withdrawal symptoms -Librium taper protocol completed -Thiamine, multivitamin, Folic Acid - To return to [facility] on discharge 4. HTN - Norvasc 5mg daily Minutes to complete discharge: 35 Discharge Summary Reason For Visit: ABD PAIN/PLEURAL EFFUSION ON THE RIGHT Condition: Improved - Instructions Referrals: Graham Jiang MD [Staff Physician] - Disposition: HOME - Home Medications Comprehensive Discharge Medication List: Ambulatory Orders Emtricitabine/Tenofovir [Truvada -] 1 tab PO DAILY 04/28/12 Efavirenz [Sustiva -] 600 mg PO HS #0 tablet 05/02/12 This patient is new to me today: Yes Date on this admission: 11/24/16 Emergency Visit: Yes ED Registration Date: 11/03/16 Care time: The patient presented to the Emergency Department on the above date and was hospitalized for further evaluation of their emergent condition. Critical Care patient: No - Discharge Referral Referred to [facility] Yes Physician Referral: Graham Washington MD ([facility])
== END 2016-11-07 16:00 | disposition home or self-care (01) | DRG 445 ==
LOC: JER 19:47 → JERBED 23:41 → J7W 11-04 08:52
PROVIDERS: ADMIT Internal Medicine; ATTEND Nurse Practitioner Acute Care
PROC: HZ2ZZZZ Detoxification Services for Substance Abuse Treatment (ICD-10-PCS; principal; 2016-11-04)
DX: K80.20 Calculus of gallbladder without cholecystitis without obstruction (principal); J90 Pleural effusion, not elsewhere classified; Z21 Asymptomatic human immunodeficiency virus [HIV] infection status; F10.10 Alcohol abuse, uncomplicated; I10 Essential (primary) hypertension; R11.2 Nausea with vomiting, unspecified; K44.9 Diaphragmatic hernia without obstruction or gangrene; R33.9 Retention of urine, unspecified
CPT/HCPCS: 36415; 71010-TC; 71250-TC; 74176-TC; 78226-TC; 80053; 81003; 81015; 82150; 83690; 83735; 83880; 85025; 85610; 87040; 93005; 93010; 97116-GP; 97161-GP; 99282-25; A9537

== ENCOUNTER 2016-12-03 13:07 | Inpatient (IN) | payer OTHER ==
[2016-12-03] MEDS: SODIUM CHLORIDE 1,000 ML IV STA ×2 (14:53→17:12)
--- NOTE | 2016-12-03 15:02 | PDOC ---
History of Present Illness - History of Present Illness Initial Comments: 12/03/16 15:25 The patient is a 66 year old male, with a significant past medical history of alcohol dependency, HIV, and hypertension, who presents to the emergency department from [facility] Intake for gradually increasing abdominal pain. The patient is a poor historian and the duration of his symptoms is unclear secondary to the patient's intoxication. He reports his last alcoholic drink was 3 pints of vodka "late last night." He states he has surgery to his right side for a lung infection in March 2016, and reports a radiating pain from surgical site. He states the pain radiates upwards towards his axillary region, but denies radiation into the armpit. He also states the pain radiates anteriorly to his abdomen, diffusely. He describes the flank/abdominal pain as sharp and constant. He denies any exacerbating or alleviating factors. He denies using medication to treat his pain, but states he "drinks as much as he needs to make the pain go away." He also reports numerous episodes of black, watery stool for about 2 weeks. He reports chills at night and states he has difficulty sleeping. He states he has not eaten in 3 days because he doesnt feel like eating. He states he takes his HIV medication every now and then. He denies chest pain, shortness of breath, headache and dizziness. He denies fever, chills, nausea, vomit, diarrhea and constipation. He denies dysuria, frequency, urgency and hematuria. Allergies: NKDA Past surgical history: right lung surgery s/p infection with rib removal Social history: EtOH abuse <Jacqueline Dewitt - Last Filed: 12/03/16 15:35> <Lisa Schaeffer - Last Filed: 12/17/16 12:18> - General Chief Complaint: Pain Stated Complaint: ABD PAIN Time Seen by Provider: 12/03/16 13:30 Past History <Jacqueline Dewitt - Last Filed: 12/03/16 15:35> - Past Medical History Anemia: No Asthma: No Cancer: No Cardiac Disorders: No CVA: No COPD: No CHF: No Dementia: No Diabetes: No GI Disorders: No Disorders: No HTN: Yes Hypercholesterolemia: No HIV: Yes Kidney Stones: No Liver Disease: No Suicide Attempt (Hx): No Seizures: Yes Thyroid Disease: No - Surgical History Abdominal Surgery: No Appendectomy: No Cardiac Surgery: No Cholecystectomy: No Lung Surgery: No Neurologic Surgery: No Orthopedic Surgery: No - Reproductive History Testicular Surgery: No - Psycho/Social/Smoking Cessation Hx Anxiety: No Suicidal Ideation: No Smoking History: Never smoked Have you smoked in the past 12 months: No Number of Cigarettes Smoked Daily: 0 Cigars Per Day: 0 Information on smoking cessation initiated: No 'Breaking Loose' booklet given: 10/27/12 Hx Alcohol Use: No Drug/Substance Use Hx: No Substance Use Type: Alcohol Hx Substance Use Treatment: Yes (04/11/13 to 04/16/13 [facility]) <Lisa Schaeffer - Last Filed: 12/17/16 12:18> - Past Medical History Allergies/Adverse Reactions: Allergies Allergy/AdvReac Type Severity Reaction Status Date / Time No Known Allergies Allergy Verified 12/03/16 13:28 Home Medications: Ambulatory Orders Emtricitabine/Tenofovir [Truvada -] 1 tab PO DAILY 04/28/12 Efavirenz [Sustiva -] 600 mg PO HS #0 tablet 05/02/12 Hydrochlorothiazide [Hctz -] 12.5 mg PO DAILY 12/04/16 Folic Acid - 1 mg PO DAILY #30 tablet 12/08/16 Hydrochlorothiazide [Hctz -] 12.5 mg PO DAILY cap 12/08/16 Multivitamins [Multivit ([facility] Formulary)] 1 tab PO DAILY #30 tab 12/08/16 Pantoprazole Sodium [Protonix -] 40 mg PO DAILY #30 cap 12/08/16 Thiamine HCl [Vitamin B1 -] 100 mg PO DAILY #30 tablet 12/08/16 Review of Systems - Review of Systems Able to Perform ROS?: Yes Comments:: 12/03/16 15:26 GENERAL/CONSTITUTIONAL: No fever or chills. No weakness. HEAD, EYES, EARS, NOSE AND THROAT: No change in vision. No ear pain or discharge. No sore throat. CARDIOVASCULAR: No chest pain or shortness of breath. RESPIRATORY: No cough, wheezing, or hemoptysis. GASTROINTESTINAL: (+) diffuse abdominal pain radiating from right flank. No nausea, vomiting, diarrhea or constipation. GENITOURINARY: No dysuria, frequency, or change in urination. MUSCULOSKELETAL: No joint or muscle swelling or pain. No neck or back pain. SKIN: No rash NEUROLOGIC: No headache, vertigo, loss of consciousness, or change in strength/ sensation. ENDOCRINE: No increased thirst. No abnormal weight change. HEMATOLOGIC/LYMPHATIC: No anemia, easy bleeding, or history of blood clots. ALLERGIC/IMMUNOLOGIC: No hives or skin allergy. <Jacqueline Dewitt - Last Filed: 12/03/16 15:35> *Physical Exam - Vital Signs Last Vital Signs Temp Pulse Resp BP Pulse Ox 98 F 80 20 142/94 97 12/03/16 13:28 12/03/16 13:28 12/03/16 13:28 12/03/16 13:28 12/03/16 13:28 <Jacqueline Dewitt - Last Filed: 12/03/16 15:35> - Vital Signs Last Vital Signs Temp Pulse Resp BP Pulse Ox 98 F 80 20 142/94 97 12/03/16 13:28 12/03/16 13:28 12/03/16 13:28 12/03/16 13:28 12/03/16 13:28 - Physical Exam Comments: GENERAL: Awake, alert, and fully oriented, appears uncomfortable HEAD: No signs of trauma EYES: PERRLA, EOMI, sclera anicteric, conjunctiva clear ENT: Auricles normal inspection, hearing grossly normal, nares patent, oropharynx clear without exudates. Dry mucosa NECK: Normal ROM, supple, no lymphadenopathy, JVD, or masses LUNGS: Breath sounds equal, clear to auscultation bilaterally. No wheezes, and no crackles HEART: Regular rate and rhythm, normal S1 and S2, no murmurs, rubs or gallops ABDOMEN: Diffusely tender with involuntary guarding. EXTREMITIES: Normal range of motion, no edema. No clubbing or cyanosis. No cords, erythema, or tenderness NEUROLOGICAL: Cranial nerves II through XII grossly intact. Normal speech. Moving all extremities. SKIN: Warm, Dry, normal turgor, no rashes or lesions noted. <Lisa Schaeffer - Last Filed: 12/17/16 12:18> ED Treatment Course - LABORATORY CBC & Chemistry Diagram: 12/03/16 14:43 12/03/16 14:43 <Jacqueline Dewitt - Last Filed: 12/03/16 15:35> - LABORATORY CBC & Chemistry Diagram: 12/06/16 08:50 12/06/16 08:50 - Medications Given in the ED: ED Medications Discontinued Medications Generic Name Dose Route Start Last Admin Trade Name Amanda PRN Reason Stop Dose Admin Sodium Chloride 1,000 mls @ 1,000 mls/hr 12/03/16 13:36 12/03/16 14:53 Normal Saline - IV 12/03/16 14:35 1,000 mls/hr ASDIR STA Administration <Lisa Schaeffer - Last Filed: 12/17/16 12:18> *DC/Admit/Observation/Transfer - Attestations Scribe Attestion: 12/03/16 15:29 Documentation prepared by Jacqueline Dewitt, acting as medical administrative technician for Lisa Schaeffer MD <Jacqueline Dewitt - Last Filed: 12/03/16 15:35> <Lisa Schaeffer - Last Filed: 12/17/16 12:18> Diagnosis at time of Disposition: Abdominal pain - Discharge Dispostion Disposition: HOME Condition at time of disposition: Fair - Prescriptions
[2016-12-03] MEDS ORDERED: ONDANSETRON 4 MG/2 ML VIAL IVPUSH ONE (17:08)
[2016-12-03] MEDS ORDERED: FAMOTIDINE 20 MG/50 ML IVPB 50 ML IVPB ONE ×2 (17:08→17:13)
[2016-12-03] MEDS ORDERED: SODIUM CHLORIDE 1,000 ML IV STA (17:08)
[2016-12-03] MEDS ORDERED: morphine CARPU-JECT 4 MG/1 ML DISP.SYRIN IVPUSH ONE (17:08)
[2016-12-03] MEDS ORDERED: morphine CARPU-JECT 4 MG/1 ML DISP.SYRIN ONE ×2 (17:13→20:04)
[2016-12-03 17:14] LABS: BASOPHIL 1.2 % (0-2.0); EOSINOPHIL 3.2 % (0-4.5); MCH 34.4 pg (25.7-33.7); MCHC 33.5 g/dl (32.0-35.9); MEAN CELL VOLUME 102.7 fl (80-96); NEUTROPHILS 32.5 % (42.8-82.8); RDW 13.4 % (11.9-15.9); WHITE BLOOD COUNT 4.6 K/mm3 (4.0-10.0)
[2016-12-03] MEDS ORDERED: ONDANSETRON 4 MG/2 ML VIAL ONE ×2 (17:18→20:04)
[2016-12-03 18:01] LABS: ALBUMIN 3.4 g/dl (3.4-5.0); ANION GAP 17 (8-16); BILIRUBIN,TOTAL 0.7 mg/dL (0.2-1.0); CALCIUM 8.5 mg/dL (8.5-10.1); CO2 28 mmol/L (21-32); GLUCOSE,RANDOM 107 mg/dL (74-106); SGOT/AST 182 U/L (15-37); SGPT/ALT 59 U/L (12-78); TOT PROT 7.1 g/dl (6.4-8.2)
[2016-12-03 18:02] LABS: ALK PHOS 136 U/L (45-117)
[2016-12-03 18:38] LABS: MEAN PLT VOLUME 9.8 fl (7.5-11.1); PLATELET COMMENT2 NO CLUMPING NOTED; PLATELET COMMENT3 NO CLOTTING DETECTED; PLATELET COUNT 143 K/MM3 (134-434); PLATELET ESTIMATE ADEQUATE (NORMAL)
[2016-12-03 18:47] LABS: COCKROFT - GAULT 102.59; CREATININE 0.7 mg/dL (0.7-1.3)
[2016-12-03] MEDS ORDERED: KCL 10 MEQ IVPB 100 ML IVPB ONE ×2 (18:48→19:36)
[2016-12-03] MEDS: KCL 10 MEQ IVPB 100 ML IVPB SCH ×3 (19:03→23:25)
--- NOTE | 2016-12-03 19:55 | PDOC ---
*Physical Exam - Vital Signs Last Vital Signs Temp Pulse Resp BP Pulse Ox 98.3 F 78 18 108/78 95 12/03/16 18:12 12/03/16 18:11 12/03/16 18:11 12/03/16 18:11 12/03/16 18:11 ED Treatment Course - LABORATORY CBC & Chemistry Diagram: 12/03/16 14:43 12/03/16 17:10 - ADDITIONAL ORDERS Additional order review: Laboratory Results 12/03/16 12/03/16 12/03/16 17:10 17:10 14:43 Sodium 144 Potassium 3.2 L Chloride 99 Carbon Dioxide 28 Anion Gap 17 H BUN 4 L D Creatinine Y Creat Clearance w eGFR > 60 Random Glucose 107 H D Calcium 8.5 Total Bilirubin 0.7 AST 182 H D ALT 59 Alkaline Phosphatase 136 H D Total Protein 7.1 Albumin 3.4 Lipase 285 Alcohol, Quantitative 340.3 H* Cancelled 12/03/16 14:43 Sodium Cancelled Potassium Cancelled Chloride Cancelled Carbon Dioxide Cancelled Anion Gap Cancelled BUN Cancelled Creatinine Cancelled Creat Clearance w eGFR Cancelled Random Glucose Cancelled Calcium Cancelled Total Bilirubin Cancelled AST Cancelled ALT Cancelled Alkaline Phosphatase Cancelled Total Protein Cancelled Albumin Cancelled Lipase Cancelled Alcohol, Quantitative 12/03/16 14:43 RBC 4.28 MCV 102.7 H MCHC 33.5 RDW 13.4 MPV 9.8 D Neutrophils % 32.5 L D Lymphocytes % 53.5 H D Monocytes % 9.6 Eosinophils % 3.2 D Basophils % 1.2 - Medications Given in the ED: ED Medications Discontinued Medications Generic Name Dose Route Start Last Admin Trade Name Amanda PRN Reason Stop Dose Admin Sodium Chloride 1,000 mls @ 1,000 mls/hr 12/03/16 13:36 12/03/16 17:12 Normal Saline - IV 12/03/16 14:35 1,000 mls/hr ASDIR STA Administration Famotidine/Sodium Chloride 50 mls @ 100 mls/hr 12/03/16 17:08 12/03/16 17:17 Pepcid 20 Mg Premixed Ivpb - IVPB 12/03/16 17:37 100 mls/hr ONCE ONE Administration Sodium Chloride 1,000 mls @ 1,000 mls/hr 12/03/16 17:08 12/03/16 18:10 Normal Saline - IV 12/03/16 18:07 1,000 mls/hr ASDIR STA Administration Morphine Sulfate 4 mg 12/03/16 17:08 12/03/16 17:17 Morphine Injection - IVPUSH 12/03/16 17:09 4 mg ONCE ONE Administration Ondansetron HCl 4 mg 12/03/16 17:08 12/03/16 17:18 Zofran Injection IVPUSH 12/03/16 17:09 4 mg ONCE ONE Administration Medical Decision Making - Medical Decision Making 12/03/16 19:57 pt still having pain. Pt will be admitted for pain control. Spoke to Dr. Jarrell. Accepts case. *DC/Admit/Observation/Transfer Diagnosis at time of Disposition: Abdominal pain - Discharge Dispostion Admit: Yes
[2016-12-03] MEDS ORDERED: ONDANSETRON 4 MG/2 ML VIAL IVPUSH STA (19:56)
[2016-12-03] MEDS ORDERED: morphine CARPU-JECT 2 MG/1 ML DISP.SYRIN IVPUSH ONE (19:56)
[2016-12-03] MEDS ORDERED: morphine CARPU-JECT 2 MG/1 ML DISP.SYRIN ONE (20:05)
[2016-12-04] MEDS ORDERED: ONDANSETRON 4 MG/2 ML VIAL IVPUSH PRN (02:11)
[2016-12-04] MEDS ORDERED: LORazepam 1 MG TABLET PO PRN (02:14)
[2016-12-04 03:05] VITALS: BMI 16.2
[2016-12-04] MEDS: DEXTROSE 5%-0.45% SALINE 1,000 ML IV SCH (03:53)
[2016-12-04 07:13] LABS: BASOPHIL 1.1 % (0-2.0); EOSINOPHIL 1.4 % (0-4.5); MCH 34.4 pg (25.7-33.7); MCHC 33.6 g/dl (32.0-35.9); MEAN CELL VOLUME 102.5 fl (80-96); MEAN PLT VOLUME 8.7 fl (7.5-11.1); PLATELET COUNT 97 K/MM3 (134-434); RDW 13.2 % (11.9-15.9); WHITE BLOOD COUNT 4.8 K/mm3 (4.0-10.0)
[2016-12-04 07:41] LABS: ALBUMIN 3.4 g/dl (3.4-5.0); ANION GAP 16 (8-16); BILIRUBIN,TOTAL 0.9 mg/dL (0.2-1.0); CALCIUM 7.7 mg/dL (8.5-10.1); CO2 26 mmol/L (21-32); COCKROFT - GAULT 85.22; CREATININE 0.6 mg/dL (0.7-1.3); GLUCOSE,RANDOM 91 mg/dL (74-106); SGOT/AST 213 U/L (15-37); SGPT/ALT 67 U/L (12-78); TOT PROT 6.9 g/dl (6.4-8.2)
[2016-12-04 07:42] LABS: ALK PHOS 127 U/L (45-117)
[2016-12-04] MEDS ORDERED: PANTOPRAZOLE 40 MG TABLET (FP) PO SCH (10:00)
[2016-12-04] MEDS: THIAMINE HCL 100 MG TABLET (FP) PO SCH (10:49)
[2016-12-04] MEDS: PANTOPRAZOLE 40 MG TABLET (FP) PO SCH (10:49)
[2016-12-04] MEDS: FOLIC ACID 1 MG TABLET (FP) PO SCH (10:49)
[2016-12-04] MEDS: EMTRICITABINE 200MG/TENOFOVIR 300MG PO SCH (10:50)
[2016-12-04] MEDS: chlordiazePOXIDE HCL 25 MG CAPSULE PO SCH ×2 (10:50→18:01)
[2016-12-04] MEDS: MULTIVITAMINS (DAILY MVI) TABLET (FP) PO SCH (10:50)
[2016-12-04] MEDS: HEPARIN NA (PORCINE) 5,000 UNITS/ML 1ML VIAL SQ SCH ×2 (10:51→21:19)
--- NOTE | 2016-12-04 11:09 | EKG ---
Test Reason : Blood Pressure : / mmHG Vent. Rate : 080 BPM Atrial Rate : 080 BPM P-R Int : 164 ms QRS Dur : 074 ms QT Int : 382 ms P-R-T Axes : 055 043 043 degrees QTc Int : 440 ms NORMAL SINUS RHYTHM EARLY REPOLARIZATION Confirmed by ISIS ELIZONDO MD ([id number]) on 12/04/2016 11:09:42 AM Referred By: Confirmed By:ISIS ELIZONDO MD
[2016-12-04] MEDS: chlordiazePOXIDE HCL 25 MG CAPSULE PO PRN (12:55)
--- NOTE | 2016-12-04 17:13 | CON.GI ---
Consult Consult Specialty:: GI Referred by:: Dr Kenny Reason for Consultation:: Abdominal pain - History of Present Illness Chief Complaint: patient admitted inebriated with a BAL of 340. At one point he c/o R sided abdomial pain. - History Source History Provided By: Patient, Medical Record Limitations to Obtaining History: Intoxication - Alcohol/Substance Use Hx Alcohol Use: Yes - Smoking History Smoking history: Former smoker Have you smoked in the past 12 months: No Aproximately how many cigarettes per day: 0 Home Medications - Allergies Allergies/Adverse Reactions: Allergies Allergy/AdvReac Type Severity Reaction Status Date / Time No Known Allergies Allergy Verified 12/03/16 13:28 - Home Medications Home Medications: Ambulatory Orders Emtricitabine/Tenofovir [Truvada -] 1 tab PO DAILY 04/28/12 Efavirenz [Sustiva -] 600 mg PO HS #0 tablet 05/02/12 Family Disease History - Family Disease History Family Disease History: Other: Father (alcohol ) Physical Exam-GI Vital Signs: Vital Signs Temperature 99.8 F H 12/04/16 15:33 Pulse Rate 93 H 12/04/16 15:33 Respiratory Rate 18 12/04/16 15:33 Blood Pressure 159/98 12/04/16 15:33 O2 Sat by Pulse Oximetry (%) 96 12/04/16 02:20 Constitutional: Yes: Mild Distress, Poor Hygeine Neck: Yes: Supple Cardiovascular: Yes: Regular Rate and Rhythm, Tachycardia Respiratory: Yes: CTA Bilaterally Gastrointestinal Inspection: Yes: WNL ...Auscultate: Yes: Normoactive Bowel Sounds ...Palpate: Yes: Soft, Tenderness (RUQ), Tenderness, Epigastium Neurological: Yes: Lethargy Labs: CBC, BMP 12/04/16 06:00 12/04/16 06:00 Imaging - Results Cat Scan: Report Reviewed (fatty liver vs hepatocellular disease) Assessment/Plan 66 M seen in the past for similar problems, now admitted with BAL 340 and R sided pain. This pain is likely [id number] to earlier fractured ribs and focal pulmonary infection which left him with a chronic pain issue. He has elevated LFT's in a pattern suggesting alcohol injury. Rec: Regular diet Detox protocol Can d/c IVF in AM. Once detox protocol has completed, can discharge barring unforeseen circumstances. Needs rehab program as opt.
[2016-12-04] MEDS: HYDROCHLOROTHIAZIDE 12.5 MG CAPSULE (FP) PO SCH (18:28)
--- NOTE | 2016-12-04 19:40 | HP ---
Admitting History and Physical - Smoking History Smoking history: Former smoker Have you smoked in the past 12 months: No Aproximately how many cigarettes per day: 0 - Alcohol/Substance Use Hx Alcohol Use: Yes Home Medications - Allergies Allergies/Adverse Reactions: Allergies Allergy/AdvReac Type Severity Reaction Status Date / Time No Known Allergies Allergy Verified 12/03/16 13:28 - Home Medications Home Medications: Ambulatory Orders Emtricitabine/Tenofovir [Truvada -] 1 tab PO DAILY 04/28/12 Efavirenz [Sustiva -] 600 mg PO HS #0 tablet 05/02/12 Hydrochlorothiazide [Hctz -] 12.5 mg PO DAILY 12/04/16 Folic Acid - 1 mg PO DAILY #30 tablet 12/08/16 Hydrochlorothiazide [Hctz -] 12.5 mg PO DAILY cap 12/08/16 Multivitamins [Multivit ([facility] Formulary)] 1 tab PO DAILY #30 tab 12/08/16 Pantoprazole Sodium [Protonix -] 40 mg PO DAILY #30 cap 12/08/16 Thiamine HCl [Vitamin B1 -] 100 mg PO DAILY #30 tablet 12/08/16 Family Disease History - Family Disease History Family Disease History: Other: Father (alcohol ) Physical Examination Vital Signs: Vital Signs Temperature 99.9 F H 12/04/16 16:30 Pulse Rate 85 12/04/16 16:30 Respiratory Rate 18 12/04/16 16:30 Blood Pressure 167/89 12/04/16 16:30 O2 Sat by Pulse Oximetry (%) 96 12/04/16 02:20 Labs: CBC, BMP 12/04/16 06:00 12/04/16 06:00 Problem List - Problems (1) Seizure Code(s): R56.9 - UNSPECIFIED CONVULSIONS (2) Abdominal pain Code(s): R10.9 - UNSPECIFIED ABDOMINAL PAIN (3) Alcohol dependence Code(s): F10.20 - ALCOHOL DEPENDENCE, UNCOMPLICATED (4) Human immunodeficiency virus infection Code(s): Z21 - ASYMPTOMATIC HUMAN IMMUNODEFICIENCY VIRUS INFECTION STATUS
--- NOTE | 2016-12-04 19:59 | CONSULT ---
Consult Detox [facility] Reason for Current Admission/Consult: chronic alcoholism . - History History of Present Illness: 66 y/o m with h/o chronic alcoholism, htn, hiv , acutely intoxicated on admission c/o abdominal pain. - History Source History Provided By: Patient - Alcohol/Substance Use Hx Alcohol Use: Yes - Current Drug/Alcohol Use Alcohol Route: Oral Frequency: Daily Amount used: wine 4-5 pts./d Age of first use: 23 Date of Last Use: 12/03/16 - Past Medical History [employer]GRAM[employer]LYST: Yes: Seizure Cardio/Vascular: Yes: HTN Infectious Disease: Yes: HIV - Past Surgical History Past Surgical History: Yes: None - Significant Medical Findings: 66 y/o m AA pt lying in bed watching tv in nad aox3, no hallucinations very fine termor jw CIWA Score - CIWA Score Nausea/Vomitin-Mild Nausea/No Vomiting Muscle Tremors: 2 Anxiety: 2 Agitation: 2 Paroxysmal Sweats: 2 Orientation: 0-Oriented Tacttile Disturbances: 1-Very Mild Itch/Numbness Auditory Disturbances: 0-None Visual Disturbances: 0-None Headache: 0-None Present CIWA-Ar Total Score: 10 Assessment Plan - Diagnosis (1) Human immunodeficiency virus infection Status: Chronic (2) Chronic alcoholism Status: Chronic Comment: discussed in pt rehab with pt but he would prefer to go to out pt. program on . - Medication Detox Regimen/Protocol: Librestiven
[2016-12-04] MEDS ORDERED: PT OWN MED DRAWER 7, Y5N ONE (21:15)
[2016-12-04] MEDS: EFAVIRENZ 600 MG TABLET PO SCH (21:19)
[2016-12-04] MEDS ORDERED: POTASSIUM CHLORIDE TABS 20 MEQ TABLET.ER (FP) PO ONE (22:47)
[2016-12-05] MEDS: DEXTROSE 5%-0.45% SALINE 1,000 ML IV SCH ×2 (06:16→19:11)
[2016-12-05] MEDS: chlordiazePOXIDE HCL 25 MG CAPSULE PO SCH ×4 (06:16→17:26)
[2016-12-05] MEDS: PANTOPRAZOLE 40 MG TABLET (FP) PO SCH (09:29)
[2016-12-05] MEDS: MULTIVITAMINS (DAILY MVI) TABLET (FP) PO SCH (09:29)
[2016-12-05] MEDS: FOLIC ACID 1 MG TABLET (FP) PO SCH (09:29)
[2016-12-05] MEDS: THIAMINE HCL 100 MG TABLET (FP) PO SCH (09:29)
[2016-12-05] MEDS: HYDROCHLOROTHIAZIDE 12.5 MG CAPSULE (FP) PO SCH (09:29)
[2016-12-05] MEDS: HEPARIN NA (PORCINE) 5,000 UNITS/ML 1ML VIAL SQ SCH ×2 (09:30→22:09)
[2016-12-05] MEDS: chlordiazePOXIDE HCL 25 MG CAPSULE PO PRN (09:30)
[2016-12-05] MEDS: EMTRICITABINE 200MG/TENOFOVIR 300MG PO SCH (10:22)
--- NOTE | 2016-12-05 15:16 | PN ---
Progress Note, Physician - Current Medication List Current Medications: Active Medications Chlordiazepoxide HCl (Librium -) 25 mg PO Q6HPO [facility] Stop: 12/06/16 06:01 Last Admin: 12/05/16 12:42 Dose: 25 mg Chlordiazepoxide HCl (Librium -) 15 mg PO Q6HPO [facility] Stop: 12/07/16 06:01 Chlordiazepoxide HCl (Librium -) 10 mg PO Q6HPO [facility] Stop: 12/08/16 06:01 Chlordiazepoxide HCl (Librium -) 25 mg PO Q4H PRN PRN Reason: S/S OF WITHDRAWAL Stop: 12/07/16 10:43 Last Admin: 12/05/16 09:30 Dose: 25 mg Efavirenz (Sustiva -) 600 mg PO HS [facility] Last Admin: 12/04/16 21:19 Dose: 600 mg Emtricitabine/Tenofovir (Truvada) 1 tab PO DAILY [facility] Last Admin: 12/05/16 10:22 Dose: 1 tab Folic Acid (Folic Acid -) 1 mg PO DAILY [facility] Last Admin: 12/05/16 09:29 Dose: 1 mg Heparin Sodium (Porcine) (Heparin -) 5,000 unit SQ BID [facility] Last Admin: 12/05/16 09:30 Dose: 5,000 unit Hydrochlorothiazide (Hctz -) 12.5 mg PO DAILY [facility] Last Admin: 12/05/16 09:29 Dose: 12.5 mg Dextrose/Sodium Chloride (D5-1/2ns -) 1,000 mls @ 100 mls/hr IV ASDIR [facility] Last Admin: 12/05/16 06:16 Dose: Not Given Multivitamins/Minerals/Vitamin C (Tab-A-Vit -) 1 tab PO DAILY [facility] Last Admin: 12/05/16 09:29 Dose: 1 tab Ondansetron HCl (Zofran Injection) 4 mg IVPUSH Q6H PRN PRN Reason: NAUSEA AND/OR VOMITING Pantoprazole Sodium (Protonix -) 40 mg PO DAILY [facility] Last Admin: 12/05/16 09:29 Dose: 40 mg Thiamine HCl (Vitamin B1 -) 100 mg PO DAILY [facility] Last Admin: 12/05/16 09:29 Dose: 100 mg - Objective Vital Signs: Vital Signs Temperature 99.1 F 12/05/16 09:00 Pulse Rate 101 H 12/05/16 09:00 Respiratory Rate 18 12/05/16 09:00 Blood Pressure 130/86 12/05/16 09:00 O2 Sat by Pulse Oximetry (%) 96 12/05/16 09:00 Constitutional: Yes: No Distress HENT: Yes: WNL Neck: Yes: Supple Cardiovascular: Yes: WNL, Regular Rate and Rhythm Respiratory: Yes: WNL, Regular, CTA Bilaterally Gastrointestinal: Yes: WNL, Normal Bowel Sounds, Soft Labs: CBC, BMP 12/04/16 06:00 12/04/16 06:00 Problem List - Problems (1) Abdominal pain Code(s): R10.9 - UNSPECIFIED ABDOMINAL PAIN (2) Chronic alcoholism Code(s): F10.20 - ALCOHOL DEPENDENCE, UNCOMPLICATED (3) Seizure Code(s): R56.9 - UNSPECIFIED CONVULSIONS (5) Human immunodeficiency virus infection Code(s): Z21 - ASYMPTOMATIC HUMAN IMMUNODEFICIENCY VIRUS INFECTION STATUS
[2016-12-05] MEDS ORDERED: POTASSIUM CHLORIDE TABS 20 MEQ TABLET.ER (FP) PO ONE (19:30)
[2016-12-05] MEDS ORDERED: ACETAMINOPHEN 325 MG TABLET (FP) ONE (20:24)
[2016-12-05] MEDS: ACETAMINOPHEN 325 MG TABLET (FP) PO PRN (20:30)
[2016-12-05] MEDS ORDERED: PT OWN MED DRAWER 7, Y5N ONE (22:07)
[2016-12-05] MEDS: EFAVIRENZ 600 MG TABLET PO SCH (22:09)
[2016-12-06] MEDS: chlordiazePOXIDE HCL 25 MG CAPSULE PO SCH ×2 (02:17→05:52)
[2016-12-06 09:10] LABS: BASOPHIL 0.4 % (0-2.0); EOSINOPHIL 2.2 % (0-4.5); MCH 34.6 pg (25.7-33.7); MCHC 34.2 g/dl (32.0-35.9); MEAN PLT VOLUME 9.1 fl (7.5-11.1); NEUTROPHILS 65.4 % (42.8-82.8); PLATELET COUNT 87 K/MM3 (134-434); RDW 12.9 % (11.9-15.9)
[2016-12-06 09:33] LABS: ALBUMIN 3.8 g/dl (3.4-5.0); ANION GAP 13 (8-16); CALCIUM 9.4 mg/dL (8.5-10.1); CO2 25 mmol/L (21-32); COCKROFT - GAULT 56.81; CREATININE 0.9 mg/dL (0.7-1.3); GLUCOSE,RANDOM 173 mg/dL (74-106); SGOT/AST 187 U/L (15-37); SGPT/ALT 77 U/L (12-78)
[2016-12-06 09:34] LABS: ALK PHOS 119 U/L (45-117)
[2016-12-06] MEDS: MULTIVITAMINS (DAILY MVI) TABLET (FP) PO SCH (10:07)
[2016-12-06] MEDS: FOLIC ACID 1 MG TABLET (FP) PO SCH (10:07)
[2016-12-06] MEDS: HEPARIN NA (PORCINE) 5,000 UNITS/ML 1ML VIAL SQ SCH ×3 (10:08→21:56)
[2016-12-06] MEDS: HYDROCHLOROTHIAZIDE 12.5 MG CAPSULE (FP) PO SCH (10:10)
[2016-12-06] MEDS: THIAMINE HCL 100 MG TABLET (FP) PO SCH (10:10)
[2016-12-06] MEDS: PANTOPRAZOLE 40 MG TABLET (FP) PO SCH (10:11)
[2016-12-06] MEDS: EMTRICITABINE 200MG/TENOFOVIR 300MG PO SCH (10:11)
[2016-12-06] MEDS: chlordiazePOXIDE 5 MG CAPSULE PO SCH ×2 (12:02→17:13)
[2016-12-06] MEDS ORDERED: MAG HYDROX/AL HYDROX/SIMETH 30 ML UNIT-DOSE CUP PO ONE (16:00)
[2016-12-06] MEDS ORDERED: POTASSIUM CHLORIDE TABS 20 MEQ TABLET.ER (FP) PO ONE (16:00)
[2016-12-06] MEDS ORDERED: PT OWN MED DRAWER 7, Y5N ONE ×3 (20:06→21:50)
--- NOTE | 2016-12-06 21:12 | PN ---
Progress Note, Physician History of Present Illness: No new complaints He did have mild abdominal discomfort today - Current Medication List Current Medications: Active Medications Acetaminophen (Tylenol -) 650 mg PO Q6H PRN PRN Reason: FEVER OR PAIN Last Admin: 12/05/16 20:30 Dose: 650 mg Chlordiazepoxide HCl (Librium -) 15 mg PO Q6HPO [facility] Stop: 12/07/16 06:01 Last Admin: 12/06/16 17:13 Dose: 15 mg Chlordiazepoxide HCl (Librium -) 10 mg PO Q6HPO [facility] Stop: 12/08/16 06:01 Chlordiazepoxide HCl (Librium -) 25 mg PO Q4H PRN PRN Reason: S/S OF WITHDRAWAL Stop: 12/07/16 10:43 Last Admin: 12/05/16 09:30 Dose: 25 mg Efavirenz (Sustiva -) 600 mg PO HS [facility] Last Admin: 12/05/16 22:09 Dose: 600 mg Emtricitabine/Tenofovir (Truvada) 1 tab PO DAILY [facility] Last Admin: 12/06/16 10:11 Dose: 1 tab Folic Acid (Folic Acid -) 1 mg PO DAILY [facility] Last Admin: 12/06/16 10:07 Dose: 1 mg Heparin Sodium (Porcine) (Heparin -) 5,000 unit SQ BID [facility] Last Admin: 12/06/16 10:08 Dose: 5,000 unit Hydrochlorothiazide (Hctz -) 12.5 mg PO DAILY [facility] Last Admin: 12/06/16 10:10 Dose: 12.5 mg Multivitamins/Minerals/Vitamin C (Tab-A-Vit -) 1 tab PO DAILY [facility] Last Admin: 12/06/16 10:07 Dose: 1 tab Ondansetron HCl (Zofran Injection) 4 mg IVPUSH Q6H PRN PRN Reason: NAUSEA AND/OR VOMITING Pantoprazole Sodium (Protonix -) 40 mg PO DAILY [facility] Last Admin: 12/06/16 10:11 Dose: 40 mg Thiamine HCl (Vitamin B1 -) 100 mg PO DAILY [facility] Last Admin: 12/06/16 10:10 Dose: 100 mg - Objective Vital Signs: Vital Signs Temperature 98.9 F 12/06/16 17:39 Pulse Rate 97 H 12/06/16 17:39 Respiratory Rate 18 12/06/16 17:39 Blood Pressure 128/88 12/06/16 17:39 O2 Sat by Pulse Oximetry (%) 96 12/06/16 14:04 Constitutional: Yes: Calm Eyes: Yes: WNL HENT: Yes: WNL Neck: Yes: Supple Cardiovascular: Yes: WNL, Regular Rate and Rhythm Respiratory: Yes: WNL, Regular, CTA Bilaterally Gastrointestinal: Yes: WNL, Normal Bowel Sounds, Soft Labs: CBC, BMP 12/06/16 08:50 12/06/16 08:50 Problem List - Problems (1) Abdominal pain Assessment/Plan: Cont protonix Probably related to ETOH use Code(s): R10.9 - UNSPECIFIED ABDOMINAL PAIN (2) Chronic alcoholism Assessment/Plan: Cont librium taper Cont folic acid/thiamine Code(s): F10.20 - ALCOHOL DEPENDENCE, UNCOMPLICATED (3) Seizure Assessment/Plan: Due to ETOH w/drawal Pt not on any antieplipitc meds Code(s): R56.9 - UNSPECIFIED CONVULSIONS (5) Human immunodeficiency virus infection Code(s): Z21 - ASYMPTOMATIC HUMAN IMMUNODEFICIENCY VIRUS INFECTION STATUS
[2016-12-06] MEDS: EFAVIRENZ 600 MG TABLET PO SCH (21:54)
[2016-12-07] MEDS: chlordiazePOXIDE 5 MG CAPSULE PO SCH ×4 (00:24→17:17)
[2016-12-07] MEDS ORDERED: PT OWN MED DRAWER 7, Y5N ONE ×2 (09:03→19:47)
[2016-12-07] MEDS: HEPARIN NA (PORCINE) 5,000 UNITS/ML 1ML VIAL SQ SCH ×2 (09:12→21:10)
[2016-12-07] MEDS: PANTOPRAZOLE 40 MG TABLET (FP) PO SCH (09:12)
[2016-12-07] MEDS: THIAMINE HCL 100 MG TABLET (FP) PO SCH (09:12)
[2016-12-07] MEDS: MULTIVITAMINS (DAILY MVI) TABLET (FP) PO SCH (09:12)
[2016-12-07] MEDS: FOLIC ACID 1 MG TABLET (FP) PO SCH (09:12)
[2016-12-07] MEDS: HYDROCHLOROTHIAZIDE 12.5 MG CAPSULE (FP) PO SCH (09:12)
[2016-12-07] MEDS: EMTRICITABINE 200MG/TENOFOVIR 300MG PO SCH (09:13)
[2016-12-07] MEDS: ACETAMINOPHEN 325 MG TABLET (FP) PO PRN (21:09)
[2016-12-07] MEDS: EFAVIRENZ 600 MG TABLET PO SCH (21:10)
--- NOTE | 2016-12-07 21:35 | PN ---
Progress Note, Physician History of Present Illness: No new complaints - Current Medication List Current Medications: Active Medications Acetaminophen (Tylenol -) 650 mg PO Q6H PRN PRN Reason: FEVER OR PAIN Last Admin: 12/07/16 21:09 Dose: 650 mg Chlordiazepoxide HCl (Librium -) 10 mg PO Q6HPO [facility] Stop: 12/08/16 06:01 Last Admin: 12/07/16 17:17 Dose: 10 mg Efavirenz (Sustiva -) 600 mg PO HS [facility] Last Admin: 12/07/16 21:10 Dose: 600 mg Emtricitabine/Tenofovir (Truvada) 1 tab PO DAILY [facility] Last Admin: 12/07/16 09:13 Dose: 1 tab Folic Acid (Folic Acid -) 1 mg PO DAILY [facility] Last Admin: 12/07/16 09:12 Dose: 1 mg Heparin Sodium (Porcine) (Heparin -) 5,000 unit SQ BID [facility] Last Admin: 12/07/16 21:10 Dose: 5,000 unit Hydrochlorothiazide (Hctz -) 12.5 mg PO DAILY [facility] Last Admin: 12/07/16 09:12 Dose: 12.5 mg Multivitamins/Minerals/Vitamin C (Tab-A-Vit -) 1 tab PO DAILY [facility] Last Admin: 12/07/16 09:12 Dose: 1 tab Ondansetron HCl (Zofran Injection) 4 mg IVPUSH Q6H PRN PRN Reason: NAUSEA AND/OR VOMITING Pantoprazole Sodium (Protonix -) 40 mg PO DAILY [facility] Last Admin: 12/07/16 09:12 Dose: 40 mg Thiamine HCl (Vitamin B1 -) 100 mg PO DAILY [facility] Last Admin: 12/07/16 09:12 Dose: 100 mg - Objective Vital Signs: Vital Signs Temperature 98.5 F 12/07/16 13:54 Pulse Rate 93 H 12/07/16 13:54 Respiratory Rate 18 12/07/16 21:00 Blood Pressure 120/64 12/07/16 13:54 O2 Sat by Pulse Oximetry (%) 97 12/07/16 21:00 Constitutional: Yes: Calm Eyes: Yes: WNL HENT: Yes: WNL Neck: Yes: WNL, Supple Cardiovascular: Yes: WNL, Regular Rate and Rhythm Respiratory: Yes: WNL, Regular, CTA Bilaterally Gastrointestinal: Yes: WNL, Normal Bowel Sounds, Soft Labs: CBC, BMP 12/06/16 08:50 12/06/16 08:50 Problem List - Problems (1) Chronic alcoholism Assessment/Plan: Cont librium taper Cont folic acid/thiamine Code(s): F10.20 - ALCOHOL DEPENDENCE, UNCOMPLICATED (2) Abdominal pain Assessment/Plan: Cont protonix Probably related to ETOH use Code(s): R10.9 - UNSPECIFIED ABDOMINAL PAIN (3) Seizure Assessment/Plan: Due to ETOH w/drawal Pt not on any antieplipitc meds Code(s): R56.9 - UNSPECIFIED CONVULSIONS (5) Human immunodeficiency virus infection Code(s): Z21 - ASYMPTOMATIC HUMAN IMMUNODEFICIENCY VIRUS INFECTION STATUS
[2016-12-08] MEDS: chlordiazePOXIDE 5 MG CAPSULE PO SCH ×2 (06:23)
[2016-12-08] MEDS ORDERED: PT OWN MED DRAWER 7, Y5N ONE (09:02)
[2016-12-08] MEDS: MULTIVITAMINS (DAILY MVI) TABLET (FP) PO SCH (09:25)
[2016-12-08] MEDS: EMTRICITABINE 200MG/TENOFOVIR 300MG PO SCH (09:25)
[2016-12-08] MEDS: THIAMINE HCL 100 MG TABLET (FP) PO SCH (09:25)
[2016-12-08] MEDS: HYDROCHLOROTHIAZIDE 12.5 MG CAPSULE (FP) PO SCH (09:25)
[2016-12-08] MEDS: HEPARIN NA (PORCINE) 5,000 UNITS/ML 1ML VIAL SQ SCH (09:25)
[2016-12-08] MEDS: FOLIC ACID 1 MG TABLET (FP) PO SCH (09:25)
[2016-12-08] MEDS: PANTOPRAZOLE 40 MG TABLET (FP) PO SCH (09:25)
[2016-12-08 11:36] VITALS: BP 115/81; PULSE 80; TEMP 98.7
== END 2016-12-08 12:00 | disposition home or self-care (01) | DRG 897 ==
LOC: JER 13:07 → JERBED 19:55 → J8W 12-04 02:12
PROVIDERS: ADMIT Internal Medicine; ATTEND Internal Medicine
PROC: HZ2ZZZZ Detoxification Services for Substance Abuse Treatment (ICD-10-PCS; principal; 2016-12-03)
DX: F10.229 Alcohol dependence with intoxication, unspecified (principal); R10.9 Unspecified abdominal pain; Z21 Asymptomatic human immunodeficiency virus [HIV] infection status; R56.9 Unspecified convulsions
CPT/HCPCS: 36415; 71010-TC; 74176-TC; 80053; 80307; 82565; 83690; 85025; 93005; 93010; 99284-25; J1644

== ENCOUNTER 2017-08-20 11:19 | Inpatient (IN) | payer OTHER ==
[2017-08-20 13:07] VITALS: BMI 25.0
--- NOTE | 2017-08-20 18:16 | HP ---
CIWA Score - CIWA Score Nausea/Vomitin Muscle Tremors: 3 Anxiety: 4-Mod. Anxious/Guarded Agitation: 0-Normal Activity Paroxysmal Sweats: 3 Orientation: 0-Oriented Tacttile Disturbances: 0-None Auditory Disturbances: 0-None Visual Disturbances: 0-None Headache: 4-Moderately Severe CIWA-Ar Total Score: 19 Admission ROS BHS - HPI Chief Complaint: "I need to stop drinking because it is taking too much out of me." Patient is here to Detox from Alcohol. Allergies/Adverse Reactions: Allergies Allergy/AdvReac Type Severity Reaction Status Date / Time No Known Allergies Allergy Verified 08/20/17 16:33 History of Present Illness: Patient is a 67 YO male here to Detox from Alcohol. Patient has had previous Detox admissions at [facility] (Last: 11/2016). Patient had a Detox admission at [facility] (@ 04/2017). Exam Limitations: No Limitations - Ebola screening Have you traveled outside of the country in the last 21 days: No Have you had contact with anyone from an Ebola affected area: No Have you been sick,other than usual withdrawal symptoms: No Do you have a fever: No - Review of Systems Constitutional: Chills, Diaphoresis, Fever, Loss of Appetite, Malaise, Night Sweats, Changes in sleep, Unintentional Wgt. Loss (Uncertain about amount.) EENT: reports: Nose Congestion, Sinus Pressure Respiratory: reports: No Symptoms reported Cardiac: reports: No Symptoms Reported GI: reports: Diarrhea, Nausea, Poor Appetite, Vomiting, Indigestion, Abdominal cramping : reports: No Symptoms Reported Musculoskeletal: reports: Muscle Pain Integumentary: reports: No Symptoms Reported Neuro: reports: Headache, Seizure (X 1969 (Due to ETOH).), Tremors Endocrine: reports: No Symptoms Reported Hematology: reports: No Symptoms Reported Psychiatric: reports: Judgement Intact, Mood/Affect Appropiate, Orientated x3, Anxious Other Systems: Reviewed and Negative Patient History - Patient Medical History Hx Anemia: No Hx Asthma: No Hx Chronic Obstructive Pulmonary Disease (COPD): No Hx Cancer: No Hx Cardiac Disorders: No Hx Congestive Heart Failure: No Hx Hypertension: Yes (On meds.) Hx Hypercholesterolemia: No Hx Pacemaker: No HX Cerebrovascular Accident: No Hx Seizures: Yes (X 1969 (ETOH-Related).) Hx Dementia: No Hx Diabetes: No Hx Gastrointestinal Disorders: No Hx Liver Disease: No Hx Genitourinary Disorders: No Hx Sexually Transmitted Disorders: No Hx Renal Disease (ESRD): No Hx Thyroid Disease: No Hx Human Immunodeficiency Virus (HIV): Yes (On meds.) Hx Hepatitis C: No (Negativen History.) Hx Depression: No Hx Suicide Attempt: No (PATIENT DENIES CURRENT SI / HI.) Hx Bipolar Disorder: No Hx Schizophrenia: No Other Medical History: DENIES. - Patient Surgical History Past Surgical History: No Hx Neurologic Surgery: No Hx Cataract Extraction: No Hx Cardiac Surgery: No Hx Lung Surgery: Yes (2014 (Removal of portion of both Rt Lung and Kidney due to Lung infection.) Hx Breast Surgery: No Hx Breast Biopsy: No Hx Abdominal Surgery: No Hx Appendectomy: No Hx Cholecystectomy: No Hx Genitourinary Surgery: No Hx Section: No Hx Orthopedic Surgery: No Hx Hysterectomy: No Other Surgical History: DENIES. Anesthesia Reaction: No - PPD History Previous Implant?: Yes Documented Results: Negative w/proof Date: 04/05/15 Results: 0 MM PPD to be Administered?: Yes - Reproductive History Patient is a Female of Child Bearing Age (11 -55 yrs old): No (PATIENT IS MALE.) - Smoking Cessation Smoking history: Former smoker Have you smoked in the past 12 months: No Aproximately how many cigarettes per day: 0 If you are a former smoker, when did you quit?: 1998. Cigars Per Day: 0 Hx Chewing Tobacco Use: No Initiated information on smoking cessation: No - Substance & Tx. History Hx Alcohol Use: Yes Hx Substance Use: Yes Substance Use Type: Alcohol Hx Substance Use Treatment: Yes (Detox at [facility]: 04/2017; Last detox admissions at [facility]: 12/09.) - Substances Abused Alcohol Route: Oral Frequency: Daily Amount used: Vodka / Rum - 3 pts, beer- 3-40oz, wine-3 pt Age of first use: 23 Date of Last Use: 08/20/17 Family Disease History - Family Disease History Family Disease History: CA: Mother (Breast Ca, .), Other: Father ( Alcohol; .) Admission Physical Exam BHS - Vital Signs Vital Signs: Vital Signs - 24 hr 08/20/17 13:03 Temperature 97.5 F L Pulse Rate 108 H Respiratory 18 Rate Blood Pressure 144/95 - Physical General Appearance: Yes: No Apparent Distress, Nourished, Appropriately Dressed , Tremorous, Anxious HEENTM: Yes: Hearing grossly Normal, Normocephalic, Normal Voice, DOROTHY, Pharynx Normal Respiratory: Yes: Chest Non-Tender, Lungs Clear, No Respiratory Distress, No Accessory Muscle Use Neck: Yes: No masses,lesions,Nodules, Supple, Trachea in good position Breast: Yes: Breast Exam Deferred Cardiology: Yes: Regular Rhythm, Regular Rate, S1, S2 Abdominal: Yes: Normal Bowel Sounds, Non Tender, Flat, Soft Genitourinary: Yes: Within Normal Limits Back: Yes: Normal Inspection Musculoskeletal: Yes: Gait Steady, Joint Stiffness, Muscle Pain Extremities: Yes: Normal Capillary Refill, Normal Range of Motion, Non-Tender, Tremors Neurological: Yes: Fully Oriented, Alert, Normal Mood/Affect, Normal Response Integumentary: Yes: Normal Color, Dry, Warm Lymphatic: Yes: Within Normal Limits - Diagnostic (1) Alcohol dependence with uncomplicated withdrawal Current Visit: Yes Status: Acute (2) History of seizure Current Visit: Yes Status: Chronic Comment: Due to ETOH. (3) Hypertension Current Visit: Yes Status: Chronic Qualifiers: Hypertension type: essential hypertension Qualified Code(s): I10 - Essential (primary) hypertension (4) Human immunodeficiency virus infection Current Visit: Yes Status: Chronic Cleared for Admission [facility] - Detox or Rehab [facility] Level of Care: Medically Managed Detox Regimen/Protocol: Librium [facility] Breath Alcohol Content Breath Alcohol Content: 0.360 Urine Drug Screen - Results Drug Screen Negative: Yes
[2017-08-20] MEDS ORDERED: ACETAMINOPHEN 325 MG TABLET (FP) PO PRN (18:50)
[2017-08-20] MEDS ORDERED: guaiFENesin/D-METHORPHAN HB 10 ML UNIT-DOSE CUPS PO PRN (18:50)
[2017-08-20] MEDS ORDERED: IBUPROFEN 400 MG TABLET (FP) PO PRN (18:50)
[2017-08-20] MEDS ORDERED: MAG HYDROX/AL HYDROX/SIMETH 30 ML UNIT-DOSE CUP PO PRN (18:50)
[2017-08-20] MEDS ORDERED: MAGNESIUM HYDROX 2400MG/30ML ORAL SUSPENSION 30 ML CUP PO PRN (18:50)
[2017-08-20] MEDS ORDERED: MENTHOL/PHENOL 1 EACH UD MM PRN (18:50)
[2017-08-20] MEDS ORDERED: chlordiazePOXIDE HCL 25 MG CAPSULE PO ONE (18:50)
[2017-08-20] MEDS ORDERED: chlordiazePOXIDE HCL 25 MG CAPSULE PO PRN (18:50)
[2017-08-20] MEDS ORDERED: LOPERAMIDE HCL 2 MG CAPSULE PO PRN (18:50)
[2017-08-20] MEDS ORDERED: P-EPHED 60MG/TRIPROLIDI 2.5MG TABLET PO PRN (18:50)
[2017-08-20] MEDS ORDERED: MAGNESIUM CITRATE 300 ML BOTTLE PO PRN (18:50)
[2017-08-20] MEDS ORDERED: chlordiazePOXIDE HCL 25 MG CAPSULE ONE (20:58)
[2017-08-20] MEDS: THIAMINE HCL 100 MG TABLET (FP) PO SCH (22:25)
[2017-08-20] MEDS: chlordiazePOXIDE HCL 25 MG CAPSULE PO SCH (22:25)
[2017-08-20] MEDS: AMMONIUM LACTATE 12% LOTION 225 GM BOTTLE TP SCH (22:26)
[2017-08-20 23:30] LABS: URINE APPEARANCE CLEAR; URINE BILIRUBIN NEGATIVE (NEGATIVE); URINE BLOOD 2+ (NEGATIVE); URINE COLOR YELLOW; URINE GLUCOSE (UA) NEGATIVE (NEGATIVE); URINE KETONE NEGATIVE (NEGATIVE); URINE NITRITE NEGATIVE (NEGATIVE); URINE UROBILINOGEN NEGATIVE mg/dL (0.2-1.0)
[2017-08-20 23:31] LABS: URINE LEUK ESTERASE 3+ (NEGATIVE); URINE PROTEIN 2+ (NEGATIVE)
[2017-08-20 23:46] LABS: EPI CELLS RARE /HPF (FEW); URINE BACTERIA FEW /hpf (NONE SEEN); URINE HYALINE CAST 2 /lpf; URINE MUCUS RARE
[2017-08-20] MEDS ORDERED: ONDANSETRON *ODT* 4 MG TABLET SL PRN (23:57)
[2017-08-21] MEDS: chlordiazePOXIDE HCL 25 MG CAPSULE PO SCH ×4 (05:04→22:09)
[2017-08-21 09:53] LABS: HEMOGLOBIN 13.3 GM/dL (11.7-16.9)
[2017-08-21 09:55] LABS: HEMATOCRIT 39.8 % (35.4-49); MCH 34.1 pg (25.7-33.7); MCHC 33.5 g/dl (32.0-35.9); MEAN CELL VOLUME 101.7 fl (80-96); MEAN PLT VOLUME 9.1 fl (7.5-11.1); PLATELET COUNT 132 K/MM3 (134-434); RBC 3.91 M/mm3 (4.00-5.60); RDW 13.2 % (11.9-15.9)
[2017-08-21] MEDS ORDERED: PANTOPRAZOLE 40 MG TABLET (FP) PO SCH (10:00)
[2017-08-21] MEDS: AMMONIUM LACTATE 12% LOTION 225 GM BOTTLE TP SCH ×2 (10:06→22:11)
[2017-08-21] MEDS: HYDROCHLOROTHIAZIDE 12.5 MG CAPSULE (FP) PO SCH (10:06)
[2017-08-21] MEDS: PRENATAL VITAMINS W/ FOLIC ACID TABLET (FP) PO SCH (10:06)
[2017-08-21 10:14] LABS: CHLORIDE 101 mmol/L (98-107); POTASSIUM 3.9 mmol/L (3.5-5.1); SODIUM 140 mmol/L (136-145)
[2017-08-21 10:18] LABS: ALBUMIN 3.8 g/dl (3.4-5.0); ALK PHOS 121 U/L (45-117); ANION GAP 11 (8-16); BILIRUBIN,TOTAL 0.7 mg/dL (0.2-1.0); BLOOD UREA NITROGEN 10 mg/dL (7-18); CALCIUM 9.4 mg/dL (8.5-10.1); CO2 28 mmol/L (21-32); CREATININE 0.9 mg/dL (0.7-1.3); GLUCOSE,RANDOM 135 mg/dL (74-106); SGOT/AST 131 U/L (15-37); SGPT/ALT 99 U/L (12-78); TOT PROT 7.7 g/dl (6.4-8.2)
[2017-08-21] MEDS ORDERED: TRIMETHOBENZAMIDE HCL 200MG/2ML INJ IM PRN (11:11)
--- NOTE | 2017-08-21 12:26 | EKG ---
Test Reason : Blood Pressure : / mmHG Vent. Rate : 110 BPM Atrial Rate : 110 BPM P-R Int : 146 ms QRS Dur : 070 ms QT Int : 292 ms P-R-T Axes : 069 069 053 degrees QTc Int : 395 ms SINUS TACHYCARDIA MINIMAL VOLTAGE CRITERIA FOR LVH, MAY BE NORMAL VARIANT BORDERLINE ECG Confirmed by MD FAISAL, RIAZ ([id number]) on 08/21/2017 12:26:25 PM Referred By: Confirmed By:RIAZ MALONE MD
[2017-08-21] MEDS ORDERED: ATAZANAVIR SO4 300 MG CAPSULE PO SCH ×2 (13:15→17:30)
--- NOTE | 2017-08-21 13:41 | PN ---
S CIWA - CIWA Score Nausea/Vomitin Muscle Tremors: 3 Anxiety: 4-Mod. Anxious/Guarded Agitation: 2 Paroxysmal Sweats: 3 Orientation: 0-Oriented Tacttile Disturbances: 1-Very Mild Itch/Numbness Auditory Disturbances: 2-Mild Harshness/Frighten Visual Disturbances: 0-None Headache: 0-None Present CIWA-Ar Total Score: 18 BHS Progress Note (SOAP) Subjective: Interrupted Sleep, Sweating, Diarrhea, Tremors, Vomiting. Objective: PT. A & O X 3, OBSERVED AMBULATING ON UNIT. NO ACUTE DISTRESS. 08/21/17 14:14 Vital Signs Temperature 96 F L 08/21/17 13:20 Pulse Rate 107 H 08/21/17 13:20 Respiratory Rate 18 08/21/17 13:20 Blood Pressure 122/82 08/21/17 13:20 O2 Sat by Pulse Oximetry (%) Laboratory Tests 08/20/17 08/21/17 08/21/17 23:13 07:40 07:40 WBC 5.0 RBC 3.91 L Hgb 13.3 D Hct 39.8 MCV 101.7 H MCH 34.1 H MCHC 33.5 RDW 13.2 Plt Count 132 L D MPV 9.1 Sodium 140 Potassium 3.9 Chloride 101 Carbon Dioxide 28 Anion Gap 11 BUN 10 Creatinine 0.9 Creat Clearance w eGFR > 60 Random Glucose 135 H D Calcium 9.4 Total Bilirubin 0.7 D AST 131 H D ALT 99 H D Alkaline Phosphatase 121 H Total Protein 7.7 Albumin 3.8 Urine Color Yellow Urine Appearance Clear Urine pH 5.0 Ur Specific [place] 1.012 Urine Protein 2+ H Urine Glucose (UA) Negative Urine Ketones Negative Urine Blood 2+ H Urine Nitrite Negative Urine Bilirubin Negative Urine Urobilinogen Negative Ur Leukocyte Esterase 3+ H Urine WBC (Auto) 62 Urine RBC (Auto) 3 Ur Epithelial Cells Rare Urine Bacteria Few Hyaline Casts 2 Urine Mucus Rare RPR Titer 08/21/17 07:40 WBC RBC Hgb Hct MCV MCH MCHC RDW Plt Count MPV Sodium Potassium Chloride Carbon Dioxide Anion Gap BUN Creatinine Creat Clearance w eGFR Random Glucose Calcium Total Bilirubin AST ALT Alkaline Phosphatase Total Protein Albumin Urine Color Urine Appearance Urine pH Ur Specific [place] Urine Protein Urine Glucose (UA) Urine Ketones Urine Blood Urine Nitrite Urine Bilirubin Urine Urobilinogen Ur Leukocyte Esterase Urine WBC (Auto) Urine RBC (Auto) Ur Epithelial Cells Urine Bacteria Hyaline Casts Urine Mucus RPR Titer Nonreactive LABS NOTED. Assessment: 08/21/17 14:15 WITHDRAWAL SYMPTOMS. Plan: CONTINUE DETOX. REPEAT AST ON 08/23/2017 FOR ELEVATED ADMISSIOIN LEVEL. REPEAT UA WITH URINE C + S ADMISSION UA ABNORMALITIES. BGM ACBK FOR ELEVATED RANDOM ADMISSION GLUCOSE LEVEL. INCREASE DAILY PO FLUID INTAKE. TIGAN IM PRN FOR NAUSEA / VOMITING. PRN IMMODIUM FOR DIARRHEA. AT TIME OF ADMISSION TO DETOX, PATIENT UNCLEAR ABOUT COMPONENTS OF CURRENT HIV HAART REGIMEN. INFORMATION PROVIDED BY PATIENT'S PHARMACY INSUFFICIENT TO CONCLUSIVELY DETERMINE EXACT REGIMEN THAT PATIENT CURRENTLY RECEIVES. AFTER DISCUSSION WITH [facility] PHARMACIST, HAART MEDICATIONS TO BE HELD. PATIENT ADVISED TO FOLLOW-UP WITH MEDICAL PROVIDER DR. Kishore ROUSE ([facility]) AFTER DISCHARGE FROM DETOX FOR FURTHER EVALUATION.
[2017-08-21 17:26] LABS: URINE APPEARANCE CLEAR; URINE BILIRUBIN NEGATIVE (NEGATIVE); URINE BLOOD NEGATIVE (NEGATIVE); URINE COLOR LTYELLOW; URINE GLUCOSE (UA) NEGATIVE (NEGATIVE); URINE KETONE NEGATIVE (NEGATIVE); URINE LEUK ESTERASE NEGATIVE (NEGATIVE); URINE NITRITE NEGATIVE (NEGATIVE); URINE PROTEIN NEGATIVE (NEGATIVE); URINE UROBILINOGEN NEGATIVE mg/dL (0.2-1.0)
[2017-08-21] MEDS ORDERED: PATIENT'S OWN MEDICATION (NON-FORMULARY) (Abacavir Sulfate/Lamivudine [Epzicom -] 1 TAB) PO SCH ×2 (17:30→22:00)
[2017-08-21] MEDS: THIAMINE HCL 100 MG TABLET (FP) PO SCH (22:09)
[2017-08-21] MEDS: diphenhydrAMINE HCL 25 MG CAPSULE (FP) PO PRN (22:11)
[2017-08-22] MEDS: chlordiazePOXIDE HCL 25 MG CAPSULE PO SCH ×3 (05:40→17:13)
[2017-08-22] MEDS: PANTOPRAZOLE 40 MG TABLET (FP) PO SCH (07:39)
[2017-08-22] MEDS: PRENATAL VITAMINS W/ FOLIC ACID TABLET (FP) PO SCH (10:03)
[2017-08-22] MEDS: AMMONIUM LACTATE 12% LOTION 225 GM BOTTLE TP SCH ×2 (10:03→22:11)
[2017-08-22] MEDS: HYDROCHLOROTHIAZIDE 12.5 MG CAPSULE (FP) PO SCH (10:03)
--- NOTE | 2017-08-22 14:42 | PN ---
S CIWA - CIWA Score Nausea/Vomitin Muscle Tremors: 4-Moderate,w/Arms Extend Anxiety: 4-Mod. Anxious/Guarded Agitation: 4-Moderately Restless Paroxysmal Sweats: 4-Forehead w/Sweat Beads Orientation: 0-Oriented Tacttile Disturbances: 1-Very Mild Itch/Numbness Auditory Disturbances: 0-None Visual Disturbances: 0-None Headache: 0-None Present CIWA-Ar Total Score: 20 BHS Progress Note (SOAP) Subjective: Tremor, chills, sweating, nausea, interrupted sleep Objective: 08/22/17 14:41 Last Vital Signs Temp Pulse Resp BP Pulse Ox 96.4 F L 88 18 133/91 08/22/17 14:13 08/22/17 14:13 08/22/17 14:13 08/22/17 14:13 Laboratory Tests 08/20/17 08/21/17 08/21/17 23:13 07:40 07:40 WBC 5.0 RBC 3.91 L Hgb 13.3 D Hct 39.8 MCV 101.7 H MCH 34.1 H MCHC 33.5 RDW 13.2 Plt Count 132 L D MPV 9.1 Sodium 140 Potassium 3.9 Chloride 101 Carbon Dioxide 28 Anion Gap 11 BUN 10 Creatinine 0.9 Creat Clearance w eGFR > 60 POC Glucometer Random Glucose 135 H D Calcium 9.4 Total Bilirubin 0.7 D AST 131 H D ALT 99 H D Alkaline Phosphatase 121 H Total Protein 7.7 Albumin 3.8 Urine Color Yellow Urine Appearance Clear Urine pH 5.0 Ur Specific [place] 1.012 Urine Protein 2+ H Urine Glucose (UA) Negative Urine Ketones Negative Urine Blood 2+ H Urine Nitrite Negative Urine Bilirubin Negative Urine Urobilinogen Negative Ur Leukocyte Esterase 3+ H Urine WBC (Auto) 62 Urine RBC (Auto) 3 Ur Epithelial Cells Rare Urine Bacteria Few Hyaline Casts 2 Urine Mucus Rare RPR Titer 08/21/17 08/21/17 08/22/17 07:40 15:01 05:40 WBC RBC Hgb Hct MCV MCH MCHC RDW Plt Count MPV Sodium Potassium Chloride Carbon Dioxide Anion Gap BUN Creatinine Creat Clearance w eGFR POC Glucometer 135 Random Glucose Calcium Total Bilirubin AST ALT Alkaline Phosphatase Total Protein Albumin Urine Color Ltyellow Urine Appearance Clear Urine pH 8.0 D Ur Specific [place] 1.014 Urine Protein Negative Urine Glucose (UA) Negative Urine Ketones Negative Urine Blood Negative Urine Nitrite Negative Urine Bilirubin Negative Urine Urobilinogen Negative Ur Leukocyte Esterase Negative Urine WBC (Auto) Urine RBC (Auto) Ur Epithelial Cells Urine Bacteria Hyaline Casts Urine Mucus RPR Titer Nonreactive Labs noted Assessment: 08/22/17 14:42 Withdrawal symptoms Plan: Continue detox
[2017-08-22] MEDS: chlordiazePOXIDE 5 MG CAPSULE PO SCH (22:08)
[2017-08-22] MEDS: THIAMINE HCL 100 MG TABLET (FP) PO SCH (22:08)
[2017-08-22] MEDS: diphenhydrAMINE HCL 25 MG CAPSULE (FP) PO PRN (22:11)
[2017-08-23] MEDS: chlordiazePOXIDE 5 MG CAPSULE PO SCH ×3 (05:36→17:33)
[2017-08-23] MEDS: PANTOPRAZOLE 40 MG TABLET (FP) PO SCH (06:29)
[2017-08-23] MEDS: PRENATAL VITAMINS W/ FOLIC ACID TABLET (FP) PO SCH (10:11)
[2017-08-23] MEDS: HYDROCHLOROTHIAZIDE 12.5 MG CAPSULE (FP) PO SCH (10:11)
--- NOTE | 2017-08-23 12:01 | PN ---
BHS Progress Note (SOAP) Subjective: Fatigue, Tremors, Sweating. Objective: PT. A & O X 3, OBSERVED AMBULATING ON UNIT. NO ACUTE DISTRESS. 08/23/17 12:00 Vital Signs Temperature 96.5 F L 08/23/17 09:27 Pulse Rate 97 H 08/23/17 09:27 Respiratory Rate 20 08/23/17 09:27 Blood Pressure 128/82 08/23/17 09:27 O2 Sat by Pulse Oximetry (%) Laboratory Tests 08/20/17 08/21/17 08/21/17 23:13 07:40 07:40 WBC 5.0 RBC 3.91 L Hgb 13.3 D Hct 39.8 MCV 101.7 H MCH 34.1 H MCHC 33.5 RDW 13.2 Plt Count 132 L D MPV 9.1 Sodium 140 Potassium 3.9 Chloride 101 Carbon Dioxide 28 Anion Gap 11 BUN 10 Creatinine 0.9 Creat Clearance w eGFR > 60 POC Glucometer Random Glucose 135 H D Calcium 9.4 Total Bilirubin 0.7 D AST 131 H D ALT 99 H D Alkaline Phosphatase 121 H Total Protein 7.7 Albumin 3.8 Urine Color Yellow Urine Appearance Clear Urine pH 5.0 Ur Specific [place] 1.012 Urine Protein 2+ H Urine Glucose (UA) Negative Urine Ketones Negative Urine Blood 2+ H Urine Nitrite Negative Urine Bilirubin Negative Urine Urobilinogen Negative Ur Leukocyte Esterase 3+ H Urine WBC (Auto) 62 Urine RBC (Auto) 3 Ur Epithelial Cells Rare Urine Bacteria Few Hyaline Casts 2 Urine Mucus Rare RPR Titer 08/21/17 08/21/17 08/22/17 07:40 15:01 05:40 WBC RBC Hgb Hct MCV MCH MCHC RDW Plt Count MPV Sodium Potassium Chloride Carbon Dioxide Anion Gap BUN Creatinine Creat Clearance w eGFR POC Glucometer 135 Random Glucose Calcium Total Bilirubin AST ALT Alkaline Phosphatase Total Protein Albumin Urine Color Ltyellow Urine Appearance Clear Urine pH 8.0 D Ur Specific [place] 1.014 Urine Protein Negative Urine Glucose (UA) Negative Urine Ketones Negative Urine Blood Negative Urine Nitrite Negative Urine Bilirubin Negative Urine Urobilinogen Negative Ur Leukocyte Esterase Negative Urine WBC (Auto) Urine RBC (Auto) Ur Epithelial Cells Urine Bacteria Hyaline Casts Urine Mucus RPR Titer Nonreactive 08/23/17 05:35 WBC RBC Hgb Hct MCV MCH MCHC RDW Plt Count MPV Sodium Potassium Chloride Carbon Dioxide Anion Gap BUN Creatinine Creat Clearance w eGFR POC Glucometer 122 Random Glucose Calcium Total Bilirubin AST ALT Alkaline Phosphatase Total Protein Albumin Urine Color Urine Appearance Urine pH Ur Specific [place] Urine Protein Urine Glucose (UA) Urine Ketones Urine Blood Urine Nitrite Urine Bilirubin Urine Urobilinogen Ur Leukocyte Esterase Urine WBC (Auto) Urine RBC (Auto) Ur Epithelial Cells Urine Bacteria Hyaline Casts Urine Mucus RPR Titer LABS NOTED. Assessment: 08/23/17 12:01 WITHDRAWAL SYMPTOMS. Plan: CONTINUE DETOX. INCREASE DAILY PO FLUID INTAKE.
[2017-08-23] MEDS: AMMONIUM LACTATE 12% LOTION 225 GM BOTTLE TP SCH ×2 (12:37→22:09)
[2017-08-23] MEDS: THIAMINE HCL 100 MG TABLET (FP) PO SCH (22:09)
[2017-08-23] MEDS: chlordiazePOXIDE HCL 10 MG CAPSULE PO SCH (22:09)
[2017-08-23] MEDS: diphenhydrAMINE HCL 25 MG CAPSULE (FP) PO PRN (22:09)
[2017-08-24] MEDS: chlordiazePOXIDE HCL 10 MG CAPSULE PO SCH (05:08)
[2017-08-24] MEDS: PANTOPRAZOLE 40 MG TABLET (FP) PO SCH (05:08)
[2017-08-24 09:16] VITALS: BP 113/78; PULSE 93; TEMP 97.5
[2017-08-24] MEDS: AMMONIUM LACTATE 12% LOTION 225 GM BOTTLE TP SCH (09:45)
[2017-08-24] MEDS: PRENATAL VITAMINS W/ FOLIC ACID TABLET (FP) PO SCH (09:45)
[2017-08-24] MEDS: HYDROCHLOROTHIAZIDE 12.5 MG CAPSULE (FP) PO SCH (09:45)
--- NOTE | 2017-08-24 13:42 | DS ---
[facility] Detox Discharge Summary Admission Date: 08/20/17 Discharge Date: 08/24/17 - History Present History: Alcohol Dependence Additional Comments: PATIENT GOING TO [facility] ([place], [place] FOR AFTERCARE. PATIENT ADVISED TO FOLLOW-UP WITH FLOOR CASHIER DR. Kishore ROUSE ([place], [place], [place] AFTER DISCHARGE FROM DETOX FOR GENERAL MEDICAL ASSESSMENT AND FOR HISTORY OF HIV. PATIENT WAS DISCHARGED FROM DETOX UNIT IN STABLE MEDICAL CONDITION. Pertinent Past History: HTN, HIV, History of Seizure (ETOH-Related), GERD. - Physical Exam Results Vital Signs: Vital Signs Temperature 97.5 F L 08/24/17 09:15 Pulse Rate 93 H 08/24/17 09:15 Respiratory Rate 18 08/24/17 09:15 Blood Pressure 113/78 08/24/17 09:15 O2 Sat by Pulse Oximetry (%) Pertinent Admission Physical Exam Findings: WITHDRAWAL SYMPTOMS. Laboratory Tests 08/20/17 08/21/17 08/21/17 23:13 07:40 07:40 WBC 5.0 RBC 3.91 L Hgb 13.3 D Hct 39.8 MCV 101.7 H MCH 34.1 H MCHC 33.5 RDW 13.2 Plt Count 132 L D MPV 9.1 Sodium 140 Potassium 3.9 Chloride 101 Carbon Dioxide 28 Anion Gap 11 BUN 10 Creatinine 0.9 Creat Clearance w eGFR > 60 POC Glucometer Random Glucose 135 H D Calcium 9.4 Total Bilirubin 0.7 D AST 131 H D ALT 99 H D Alkaline Phosphatase 121 H Total Protein 7.7 Albumin 3.8 Urine Color Yellow Urine Appearance Clear Urine pH 5.0 Ur Specific [place] 1.012 Urine Protein 2+ H Urine Glucose (UA) Negative Urine Ketones Negative Urine Blood 2+ H Urine Nitrite Negative Urine Bilirubin Negative Urine Urobilinogen Negative Ur Leukocyte Esterase 3+ H Urine WBC (Auto) 62 Urine RBC (Auto) 3 Ur Epithelial Cells Rare Urine Bacteria Few Hyaline Casts 2 Urine Mucus Rare RPR Titer 08/21/17 08/21/17 08/22/17 07:40 15:01 05:40 WBC RBC Hgb Hct MCV MCH MCHC RDW Plt Count MPV Sodium Potassium Chloride Carbon Dioxide Anion Gap BUN Creatinine Creat Clearance w eGFR POC Glucometer 135 Random Glucose Calcium Total Bilirubin AST ALT Alkaline Phosphatase Total Protein Albumin Urine Color Ltyellow Urine Appearance Clear Urine pH 8.0 D Ur Specific [place] 1.014 Urine Protein Negative Urine Glucose (UA) Negative Urine Ketones Negative Urine Blood Negative Urine Nitrite Negative Urine Bilirubin Negative Urine Urobilinogen Negative Ur Leukocyte Esterase Negative Urine WBC (Auto) Urine RBC (Auto) Ur Epithelial Cells Urine Bacteria Hyaline Casts Urine Mucus RPR Titer Nonreactive 08/23/17 08/24/17 05:35 05:08 WBC RBC Hgb Hct MCV MCH MCHC RDW Plt Count MPV Sodium Potassium Chloride Carbon Dioxide Anion Gap BUN Creatinine Creat Clearance w eGFR POC Glucometer 122 110 Random Glucose Calcium Total Bilirubin AST ALT Alkaline Phosphatase Total Protein Albumin Urine Color Urine Appearance Urine pH Ur Specific [place] Urine Protein Urine Glucose (UA) Urine Ketones Urine Blood Urine Nitrite Urine Bilirubin Urine Urobilinogen Ur Leukocyte Esterase Urine WBC (Auto) Urine RBC (Auto) Ur Epithelial Cells Urine Bacteria Hyaline Casts Urine Mucus RPR Titer LABS NOTED. - Treatment Hospital Course: Detox Protocol Followed, Detoxed Safely, Responded well, Discharged Condition Good Patient has Accepted a Rehab Referral to: PT. GOING TO [facility] ([place] - Medication Discharge Medications: Ambulatory Orders Hydrochlorothiazide [Hctz -] 12.5 mg PO DAILY 12/04/16 Folic Acid - 1 mg PO DAILY #30 tablet 12/08/16 Pantoprazole Sodium [Protonix -] 40 mg PO DAILY #30 cap 12/08/16 Thiamine HCl [Vitamin B1 -] 100 mg PO DAILY #30 tablet 12/08/16 - Diagnosis (1) Alcohol dependence with uncomplicated withdrawal Status: Acute (2) History of seizure Status: Chronic (3) Hypertension Status: Chronic Qualifiers: Hypertension type: essential hypertension Qualified Code(s): I10 - Essential (primary) hypertension (4) Human immunodeficiency virus infection Status: Chronic - AMA Did Patient Leave Against Medical Advice: No
== END 2017-08-24 09:47 | disposition home or self-care (01) | DRG 897 ==
LOC: YASAS 11:19 → Y3N 17:43
PROVIDERS: ADMIT Internal Medicine; ATTEND Internal Medicine
PROC: HZ2ZZZZ Detoxification Services for Substance Abuse Treatment (ICD-10-PCS; principal; 2017-08-20)
DX: F10.230 Alcohol dependence with withdrawal, uncomplicated (principal); I10 Essential (primary) hypertension; Z21 Asymptomatic human immunodeficiency virus [HIV] infection status; Z86.69 Personal history of other diseases of the nervous system and sense organs
CPT/HCPCS: 36415; 80053; 81003; 81015; 82962; 85027; 86593; 87086; 93005; 93010

== ENCOUNTER 2018-04-12 13:12 | Inpatient (IN) | payer OTHER ==
[2018-04-12 13:49] VITALS: BMI 22.2
--- NOTE | 2018-04-12 15:53 | HP ---
COWS - Scale Resting Pulse: 0= TN 80 or Below Restless Observation: 0= Sits Still Pupil Size: 0= Normal to Room Light Bone or Joint Aches: 0= None Runny Nose/ Eye Tearin= None GI Upset > 30mins: 0= None Tremor Observation: 0= None Yawning Observation: 0= None Anxiety or Irritability: 0= None Goose Flesh Skin: 0=Smooth Skin CIWA Score - CIWA Score Nausea/Vomitin-No Nausea/No Vomiting Muscle Tremors: 4-Moderate,w/Arms Extend Anxiety: 1-Mildly Anxious Agitation: 0-Normal Activity Paroxysmal Sweats: 2 Orientation: 0-Oriented Tacttile Disturbances: 0-None Auditory Disturbances: 0-None Visual Disturbances: 0-None Headache: 0-None Present CIWA-Ar Total Score: 7 Admission ROS S - HPI Chief Complaint: pt here requesting detox from etoh use reports 2 pints of vodka and 1 pint qine , sometimes 3 pints of vodka, x 3 weeks x 3 weeks, starts in the mornings to stop tremors, had seizure x 1 in the past 2/2 etoh w/d . Denies recent seizures, + blackouts , denies falls . pmhx : HIV , htn did not bring meds pshx : right lung " infection " 2000 allergies : nkda utox + bzo - denies use tobacco -denies Allergies/Adverse Reactions: Allergies Allergy/AdvReac Type Severity Reaction Status Date / Time No Known Allergies Allergy Verified 04/12/18 14:21 - Ebola screening Have you traveled outside of the country in the last 21 days: No Have you had contact with anyone from an Ebola affected area: No Have you been sick,other than usual withdrawal symptoms: No Do you have a fever: No - Review of Systems Constitutional: Loss of Appetite, Malaise EENT: reports: Blurred Vision, Other (upper dentures) GI: reports: Nausea, Poor Appetite : reports: No Symptoms Reported Musculoskeletal: reports: No Symptoms Reported Integumentary: reports: No Symptoms Reported Neuro: reports: Seizure, Tremors, Weakness, Unsteady Gait Patient History - Patient Medical History Hx Anemia: No Hx Asthma: No Hx Chronic Obstructive Pulmonary Disease (COPD): No Hx Cancer: No Hx Cardiac Disorders: No Hx Congestive Heart Failure: No Hx Hypertension: Yes (On meds.) Hx Hypercholesterolemia: No Hx Pacemaker: No HX Cerebrovascular Accident: No Hx Seizures: Yes (X 1 - 1970 (ETOH-Related).) Hx Dementia: No Hx Diabetes: No Hx Gastrointestinal Disorders: Yes (GERD) Hx Liver Disease: No Hx Genitourinary Disorders: No Hx Sexually Transmitted Disorders: Yes (HIV) Hx Renal Disease (ESRD): No Hx Thyroid Disease: No Hx Human Immunodeficiency Virus (HIV): Yes (On meds.) Hx Hepatitis C: No (Negativen History.) Hx Depression: No Hx Suicide Attempt: No (denies HI and SI) Hx Bipolar Disorder: No Hx Schizophrenia: No - Patient Surgical History Past Surgical History: Yes Hx Neurologic Surgery: No Hx Cataract Extraction: No Hx Cardiac Surgery: No Hx Lung Surgery: Yes (2015 (Removal of portion of both Rt Lung and Kidney due to Lung infection.) Hx Breast Surgery: No Hx Breast Biopsy: No Hx Abdominal Surgery: No Hx Appendectomy: No Hx Cholecystectomy: No Hx Genitourinary Surgery: No Hx Section: No Hx Orthopedic Surgery: No Hx Hysterectomy: No Other Surgical History: DENIES. Anesthesia Reaction: No - PPD History Previous Implant?: Yes Documented Results: Negative w/proof Implanted On Prior [facility] Admission?: Yes Date: 08/22/17 Results: NEGATIVE - Smoking Cessation Smoking history: Former smoker Have you smoked in the past 12 months: No Aproximately how many cigarettes per day: 0 If you are a former smoker, when did you quit?: 1998. Cigars Per Day: 0 Hx Chewing Tobacco Use: No Initiated information on smoking cessation: No - Substances Abused Alcohol Route: Oral Frequency: Daily Amount used: 2 PINTS OF VODKA Age of first use: 23 Date of Last Use: 04/12/18 Family Disease History - Family Disease History Family Disease History: CA: Mother (Breast Ca, .), Other: Father ( Alcohol; .) Admission Physical Exam S - Vital Signs Vital Signs: Vital Signs - 24 hr 04/12/18 13:48 Temperature 97.4 F L Pulse Rate 107 H Respiratory 18 Rate Blood Pressure 110/77 - Physical General Appearance: Yes: Disheveled, Mild Distress, Cachetic, Tremorous HEENTM: Yes: Hearing Decreased, Rhinorrhea, Other (missing teeth / poor dentition) Respiratory: Yes: Lungs Clear, Surgical Scar, Other (tenderness at site of surgical scar - states had surgery in 2016 and has had pain since, went back for checkup and was told to give it more time) Neck: Yes: Within Normal Limits, No masses,lesions,Nodules, Trachea in good position Cardiology: Yes: Regular Rhythm, Regular Rate Abdominal: Yes: Guarding, Other (guarding RUQ at surgical site) Back: Yes: Within Normal Limits Extremities: Yes: Tremors, Other (clubbing) Neurological: Yes: Fully Oriented, Alert, Motor Strength 5/5, Depressed Affect Integumentary: Yes: Dry, Warm, Pale Cleared for Admission [facility] - Detox or Rehab Detox Regimen/Protocol: Librium S Breath Alcohol Content Breath Alcohol Content: 0 Urine Drug Screen - Results Drug Screen Negative: No Urine Drug Screen Results: BZO-Benzodiazepines
[2018-04-12] MEDS ORDERED: IBUPROFEN 400 MG TABLET (FP) PO PRN (16:01)
[2018-04-12] MEDS ORDERED: MAGNESIUM CITRATE 300 ML BOTTLE PO PRN (16:01)
[2018-04-12] MEDS ORDERED: MAGNESIUM HYDROX 2400MG/30ML ORAL SUSPENSION 30 ML CUP PO PRN (16:01)
[2018-04-12] MEDS ORDERED: ACETAMINOPHEN 325 MG TABLET (FP) PO PRN (16:01)
[2018-04-12] MEDS ORDERED: MAG HYDROX/AL HYDROX/SIMETH 30 ML UNIT-DOSE CUP PO PRN (16:01)
[2018-04-12] MEDS ORDERED: cloNIDine HCL 0.1 MG TABLET PO PRN (16:03)
[2018-04-12] MEDS: chlordiazePOXIDE HCL 25 MG CAPSULE PO SCH ×2 (18:02→22:07)
[2018-04-12] MEDS ORDERED: MELATONIN 5 MG TABLETS PO PRN (22:00)
[2018-04-12] MEDS ORDERED: THIAMINE HCL 100 MG TABLET (FP) PO SCH (22:00)
[2018-04-12 23:13] LABS: URINE APPEARANCE CLEAR; URINE BILIRUBIN NEGATIVE (<2.0 mg/dL); URINE COLOR AMBER; URINE GLUCOSE (UA) 3+ (NEGATIVE); URINE KETONE TRACE (NEGATIVE); URINE LEUK ESTERASE NEGATIVE (NEGATIVE); URINE NITRITE NEGATIVE (NEGATIVE); URINE PROTEIN NEGATIVE (NEGATIVE)
[2018-04-12 23:16] LABS: EPI CELLS RARE /HPF (FEW)
--- NOTE | 2018-04-13 04:13 | PN ---
S Progress Note Note: ASKED TO SEE PATIENT FOR UNWITNESSED FALL. PT STATES FELL ON BUTTOCKS AFTER TRIPPING ON LONG PANTS WHILE ATTEMPTING TO GO TO THE BATHROOM. DENIES HITTING HIS HEAD, LOC, DIZZINESS, SOB, C.P. PER STAFF CLIENTS FLOOR NEAR HIS BED WAS WET WITH URINE. SEEN LYING IN BED, AWAKE,ALERT, OX3, NAD HEENT- NCAT, PERRLA, EOMI CV- RRR EXTREMITIES- FROM W/O LIMITATIONS BACK- NL SKIN- INTACT, COCCYX/SACRAL AREA NOTED WITH STAGE 1 PRESSURE ULCER. DISCOLORED SKIN WITH DRYNESS. C/O PAIN WHEN SKIN IS TOUCHED. STATES HE HAS THIS PRIOR TO ADMISSION Vital Signs Temperature 98.2 F 04/12/18 22:58 Pulse Rate 103 H 04/12/18 22:58 Respiratory Rate 18 04/13/18 00:30 Blood Pressure 111/76 04/12/18 22:58 O2 Sat by Pulse Oximetry (%) S/P UNWITNESSED FALL, STAGE 1 PU FALL PROTOCOL #[address]- RISK DISCUSSED TO INCLUDE BLEEDING. CLIENT VERBALIZED UNDERSTANDING FALL SAFETY PRECAUTION CONT TO MONITOR CLINICALLY ZINC OXIDE PRN TO SACRAL/COCCYX AREA
[2018-04-13] MEDS: chlordiazePOXIDE HCL 25 MG CAPSULE PO SCH ×2 (06:50→11:49)
[2018-04-13] MEDS ORDERED: PRENATAL VITAMINS W/ FOLIC ACID TABLET (FP) PO SCH (10:00)
[2018-04-13] MEDS ORDERED: ZINC OXIDE 20% TOPICAL OINTMENT 30 GM TUBE TP SCH (10:00)
[2018-04-13 11:05] LABS: ALBUMIN 3.1 g/dl (3.4-5.0); ALK PHOS 216 U/L (45-117); ANION GAP 10 MMOL/L (8-16); BILIRUBIN,TOTAL 5.4 mg/dL (0.2-1); BLOOD UREA NITROGEN 39 mg/dL (7-18); CALCIUM 9.2 mg/dL (8.5-10.1); CHLORIDE 95 mmol/L (98-107); CO2 29 mmol/L (21-32); CREATININE 1.2 mg/dL (0.55-1.3); GLUCOSE,RANDOM 280 mg/dL (74-106); SGPT/ALT 258 U/L (13-61); SODIUM 134 mmol/L (136-145); TOT PROT 6.6 g/dl (6.4-8.2)
[2018-04-13] MEDS ORDERED: PANTOPRAZOLE 40 MG TABLET (FP) PO ONE (11:18)
[2018-04-13 11:30] LABS: POTASSIUM 3.5 mmol/L (3.5-5.1); SGOT/AST 262 U/L (15-37)
--- NOTE | 2018-04-13 11:33 | PN ---
S CIWA - CIWA Score Nausea/Vomitin Muscle Tremors: 3 Anxiety: 2 Agitation: 1-Slight > Activity Paroxysmal Sweats: 3 Orientation: 0-Oriented Tacttile Disturbances: 2-Mild Itch/Numbness/Burn Auditory Disturbances: 0-None Visual Disturbances: 0-None Headache: 0-None Present CIWA-Ar Total Score: 13 [facility] Progress Note (SOAP) Subjective: interrupted sleep, sweats, shakes abdominal pain , incontinence of urine Objective: 04/13/18 11:29 Vital Signs Temperature 98.2 F 04/13/18 09:45 Pulse Rate 100 H 04/13/18 09:45 Respiratory Rate 16 04/13/18 09:45 Blood Pressure 97/61 04/13/18 09:45 O2 Sat by Pulse Oximetry (%) Laboratory Tests 04/12/18 16:52 Urine Color Nieves Urine Appearance Clear Urine pH 6.0 D Ur Specific [place] 1.022 Urine Protein Negative Urine Glucose (UA) 3+ H Urine Ketones Trace H Urine Blood 3+ H Urine Nitrite Negative Urine Bilirubin Negative Urine Urobilinogen 2.0 Ur Leukocyte Esterase Negative Urine WBC (Auto) 19 Urine RBC (Auto) 7 Ur Epithelial Cells Rare pending labs pt aox3 lying in bed wel healed thoracotomy scar on RT abd - no scars , voluntary guarding mild diffuse tenderness w/o rebounds , increased BS Assessment: 04/13/18 11:32 withdrawal sx's hiv abdominal pain urinary incontinence Plan: cont detox lipase , amylase f/up pending labs
[2018-04-13] MEDS ORDERED: chlordiazePOXIDE HCL 25 MG CAPSULE PO ONE (11:35)
[2018-04-13 11:56] LABS: HEMATOCRIT 35.4 % (35.4-49); HEMOGLOBIN 12.4 GM/dL (11.7-16.9); MCH 36.2 pg (25.7-33.7); MEAN CELL VOLUME 103.5 fl (80-96); PLATELET COUNT 48 K/MM3 (134-434); RBC 3.42 M/mm3 (4.00-5.60); RDW 13.9 % (11.9-15.9)
[2018-04-13 12:01] LABS: AMYLASE 54 U/L (25-115); CHOLESTEROL 123 mg/dL (50-200); HDL CHOLESTEROL 19 mg/dL (40-60); TRIGLYCERIDES 122 mg/dL (0-150)
[2018-04-13] MEDS ORDERED: INSULIN (NOVOLOG) ASPART 100 UNITS/ML 10ML VIAL SQ ONE (12:32)
--- NOTE | 2018-04-13 13:12 | EKG ---
Test Reason : Blood Pressure : / mmHG Vent. Rate : 091 BPM Atrial Rate : 091 BPM P-R Int : 156 ms QRS Dur : 074 ms QT Int : 314 ms P-R-T Axes : 045 076 068 degrees QTc Int : 386 ms NORMAL SINUS RHYTHM EARLY REPOLARIZATION NORMAL ECG WHEN COMPARED WITH ECG OF 20-AUG-2017 21:05, ST ELEVATION NOW PRESENT IN INFERIOR LEADS Confirmed by MALIK KUNZ, ERIC ([id number]) on 04/13/2018 1:12:13 PM Referred By: Confirmed By:ERIC GAN MD
--- NOTE | 2018-04-13 13:19 | PN ---
[facility] Progress Note Note: 68 y/o m pt admitted to detox with h/o etoh dep, hiv , gerd , recent thoracotomy for rt lung infection . Vital Signs Temperature 98.2 F 04/13/18 09:45 Pulse Rate 100 H 04/13/18 09:45 Respiratory Rate 16 04/13/18 09:45 Blood Pressure 97/61 04/13/18 09:45 O2 Sat by Pulse Oximetry (%) Now c/o ruq abdominal pain ;sgot-262, spot-258, t. bilrubin 5.4, , Pt glucose 280 this am , bgm this afternoon 506- new onset DM , no prior hx of DM BUN 39, Creatinine 1.2 - dehydration platlets 48k - thrombocytopenia Plan- ED referral for further evaluation Pt signed out to Dr. Saldaña , ED Attending [facility] activated
[2018-04-13 13:36] VITALS: BP 104/67; PULSE 102; TEMP 96.8
[2018-04-13] MEDS ORDERED: INSULIN SLIDING SCALE (NOVOLOG) 1 VIAL SQ SCH (16:30)
[2018-04-13] MEDS ORDERED: chlordiazePOXIDE HCL 25 MG CAPSULE PO SCH (17:00)
[2018-04-14] MEDS ORDERED: PANTOPRAZOLE 40 MG TABLET (FP) PO SCH (10:00)
[2018-04-14 14:10] LABS: LIPASE 195 U/L (73-393)
[2018-04-14] MEDS ORDERED: chlordiazePOXIDE 5 MG CAPSULE PO SCH (17:00)
[2018-04-15] MEDS ORDERED: chlordiazePOXIDE HCL 10 MG CAPSULE PO SCH (17:00)
== END 2018-04-13 23:55 | disposition short-term general hospital (02) | DRG 897 ==
LOC: YASAS 13:12 → Y6N 16:17
PROC: HZ2ZZZZ Detoxification Services for Substance Abuse Treatment (ICD-10-PCS; principal; 2018-04-12)
DX: F10.230 Alcohol dependence with withdrawal, uncomplicated (principal); I10 Essential (primary) hypertension; K21.9 Gastro-esophageal reflux disease without esophagitis; Z21 Asymptomatic human immunodeficiency virus [HIV] infection status; E11.9 Type 2 diabetes mellitus without complications; R10.11 Right upper quadrant pain; Z86.69 Personal history of other diseases of the nervous system and sense organs; Z90.2 Acquired absence of lung [part of]
CPT/HCPCS: 36415; 70450-TC; 80053; 80061; 81003; 81015; 82150; 82962; 83690; 83721; 85027; 86593; 93005; 93010

== ENCOUNTER 2018-04-13 14:16 | Inpatient (IN) | payer OTHER ==
[2018-04-13 14:47] VITALS: BMI 26.6
[2018-04-13] MEDS ORDERED: LACTATED RINGERS SOLUTION 1000 ML INFUS.BAG IV ONE (15:17)
[2018-04-13] MEDS ORDERED: FAMOTIDINE 20 MG/50 ML IVPB 20 MG/50 ML MG IVPB ONE ×2 (15:42→16:18)
[2018-04-13] MEDS ORDERED: LACTATED RINGERS SOLUTION 1,000 ML IV SCH (15:45)
[2018-04-13] MEDS ORDERED: morphine CARPU-JECT 4 MG/1 ML DISP.SYRIN IVPUSH ONE (16:09)
--- NOTE | 2018-04-13 16:09 | PDOC ---
History of Present Illness - History of Present Illness Initial Comments: 04/13/18 18:44 The patient is a 68 year old male with significant past medical history of ETOH dependence, HIV, recent thoracotomy for right lung infection, who presents today from [facility] detox complaining of RUQ abdominal pain, multiple episodes of vomiting, and diarrhea that began yesterday morning, worse today. The patient was also sent here today for abnormal lab values. He reports that his RUQ and epigastric abdominal pain is a 10/10 in severity. The patient also reports sweats, chills, and dizziness upon standing. He states that the last time he drank was yesterday morning. The patient presented to [facility] detox yesterday requesting detox from alcohol. Denies any urinary symptoms. Denies chest pain, cough, difficulty breathing. Allergies: NKA <Lissett Vargas - Last Filed: 04/13/18 18:44> - General History Source: Patient Exam Limitations: No Limitations <Tessa Mcgee - Last Filed: 04/14/18 17:30> - General Chief Complaint: Nausea/Vomiting Stated Complaint: Revisit, Lab Variance Time Seen by Provider: 04/13/18 15:16 Past History <Lissett Vargas - Last Filed: 04/13/18 18:44> - Past Medical History Anemia: No Asthma: No Cancer: No Cardiac Disorders: No CVA: No COPD: No CHF: No Dementia: No Diabetes: No GI Disorders: Yes (GERD) Disorders: No HTN: Yes (On meds.) Hypercholesterolemia: No Kidney Stones: No Liver Disease: No Seizures: Yes (X 1 - 1970 (ETOH-Related).) Thyroid Disease: No - Surgical History Abdominal Surgery: No Appendectomy: No Cardiac Surgery: No Cholecystectomy: No Lung Surgery: Yes (2016 (Removal of portion of both Rt Lung and Kidney due to Lung infection.) Neurologic Surgery: No Orthopedic Surgery: No - Reproductive History Testicular Surgery: No - Immunization History Immunization Up to Date: Yes - Suicide/Smoking/Psychosocial Hx Smoking History: Unknown if ever smoked Have you smoked in the past 12 months: No Number of Cigarettes Smoked Daily: 0 If you are a former smoker, when did you quit?: 1998. Cigars Per Day: 0 Information on smoking cessation initiated: No 'Breaking Loose' booklet given: 10/27/12 Hx Alcohol Use: Yes Drug/Substance Use Hx: No Substance Use Type: Alcohol Hx Substance Use Treatment: Yes (LAST DETOX JULY 2017) <Tessa Mcgee - Last Filed: 04/14/18 17:30> - Past Medical History Allergies/Adverse Reactions: Allergies Allergy/AdvReac Type Severity Reaction Status Date / Time No Known Allergies Allergy Verified 04/13/18 14:29 Home Medications: Ambulatory Orders Hydrochlorothiazide [Hctz -] 12.5 mg PO DAILY 12/04/16 Folic Acid - 1 mg PO DAILY #30 tablet 12/08/16 Pantoprazole Sodium [Protonix -] 40 mg PO DAILY #30 cap 12/08/16 Thiamine HCl [Vitamin B1 -] 100 mg PO DAILY #30 tablet 12/08/16 Abacavir Sulfate/Lamivudine [Epzicom Tablet] 1 tablet PO DAILY 04/14/18 Abd/GI Specific PMHX - Complaint Specific PMHX Hepatitis: No Pancreatitis: No <Tessa Mcgee Arelyiris - Last Filed: 04/14/18 17:30> Review of Systems - Review of Systems Able to Perform ROS?: Yes Comments:: 04/13/18 18:44 GENERAL/CONSTITUTIONAL: +sweats, chills, dizziness upon standing. + weakness. HEAD, EYES, EARS, NOSE AND THROAT: No change in vision or hearing. No ear pain or discharge. No sore throat or mouth pain. No difficulty swallowing. No congestion. CARDIOVASCULAR: No chest pain or palpitations, syncope or edema. RESPIRATORY: No SOB, cough, wheezing, or hemoptysis. GASTROINTESTINAL +vomiting, +diarrhea. +abdominal pain. No constipation. No bloody stools. GENITOURINARY: No hematuria, dysuria, frequency, urgency or other changes. MUSCULOSKELETAL: No joint or muscle swelling or pain. No neck or back pain. SKIN: No rash or changes in skin color or lesions. NEUROLOGIC: No headache, vertigo, loss of consciousness, or change in strength/ sensation. HEMATOLOGIC/LYMPHATIC: No anemia, easy bruising/bleeding, or history of blood clots. ALLERGIC/IMMUNOLOGIC: No allergies All other systems reviewed and negative, or as documented in HPI. <Lissett Vargas - Last Filed: 04/13/18 18:44> *Physical Exam - Vital Signs Last Vital Signs Temp Pulse Resp BP Pulse Ox 97.6 F 107 H 16 112/77 100 04/13/18 14:27 04/13/18 14:27 04/13/18 14:27 04/13/18 14:27 04/13/18 14:27 - Physical Exam Comments: 04/13/18 18:44 General: Well appearing, awake and alert, NAD. HEENT: NCAT, PERRL, EOMI, clear conjunctiva,+sclera icteric, +tongue fasciculations, dry mucus membranes, clear oropharynx, no oral lesions. Neck: neck supple, FROM Resp: CTAB, normal and even respirations, no respiratory distress CVS: RRR, no murmurs, 2+ peripheral pulses throughout, no peripheral edema Abdomen: +tenderness to the epigastric and RUQ, +guarding and rebound. Back: nontender, normal inspection and ROM MSK: no edema, NEVAREZ x4, ROM intact. +clubbing. No cyanosis. normal bulk and tone. Neuro: alert, oriented appropriately; no focal neurologic deficits. +tremulous Skin: warm and well perfused, cap refill <2 sec, normal color for ethnicity <Lissett Vargas - Last Filed: 04/13/18 18:44> - Vital Signs Last Vital Signs Temp Pulse Resp BP Pulse Ox 97.6 F 107 H 16 112/77 100 04/13/18 14:27 04/13/18 14:27 04/13/18 14:27 04/13/18 14:27 04/13/18 14:27 <Tessa Mcgee - Last Filed: 04/14/18 17:30> ED Treatment Course - LABORATORY CBC & Chemistry Diagram: 04/13/18 17:25 04/13/18 17:25 - ADDITIONAL ORDERS Additional order review: Laboratory Results 04/13/18 04/13/18 17:25 17:25 PT with INR 13.60 H INR 1.20 H Sodium Cancelled Potassium Cancelled Chloride Cancelled Carbon Dioxide Cancelled Anion Gap Cancelled BUN Cancelled Creatinine Cancelled Creat Clearance w eGFR Cancelled Random Glucose Cancelled Calcium Cancelled Total Bilirubin Cancelled AST Cancelled ALT Cancelled Alkaline Phosphatase Cancelled Total Protein Cancelled Albumin Cancelled Lipase Cancelled 04/13/18 17:25 RBC 4.21 MCV 100.0 H MCHC 34.1 RDW 14.1 MPV 10.2 Neutrophils % 67.5 Lymphocytes % 15.0 D Monocytes % 16.9 H Eosinophils % 0.2 D Basophils % 0.4 - Medications Given in the ED: ED Medications Discontinued Medications Generic Name Dose Route Start Last Admin Trade Name Amanda PRN Reason Stop Dose Admin Famotidine/Sodium Chloride 20 mg in 50 mls @ 100 mls/hr 04/13/18 15:42 17:32 Pepcid 20 Mg Premixed Ivpb - IVPB 04/13/18 16:11 100 mls/hr ONCE ONE Administration Lactated Ringer's 1,000 ml 04/13/18 15:17 04/13/18 17:31 Lactated Ringers Solution IV 04/13/18 15:18 1,000 ml ONCE ONE Administration Lorazepam 2 mg 04/13/18 16:10 04/13/18 17:52 Ativan Injection - IVPUSH 04/13/18 16:11 2 mg ONCE ONE Administration Morphine Sulfate 4 mg 04/13/18 16:09 04/13/18 17:32 Morphine Injection - IVPUSH 04/13/18 16:10 4 mg ONCE ONE Administration <Lissett Vargas - Last Filed: 04/13/18 18:44> - LABORATORY CBC & Chemistry Diagram: 04/13/18 17:25 04/13/18 17:25 - RADIOLOGY Radiology Studies Ordered: Category Date Time Status ABDOMEN US -LIMITED [US] Stat Ultrasound 04/13/18 15:17 Ordered <Tessa Mcgee - Last Filed: 04/14/18 17:30> Medical Decision Making - Medical Decision Making 04/13/18 19:50 [place] 68 y/o m pt admitted to detox with h/o ETOH dependence, hiv , gerd , recent thoracotomy for rt lung infection presenting with acute worsening of epigastric abdominal pain, nausea, vomiting and diarrhea since yesterday. + daily drinker. At detox today, found to have abnormal LFTs and send to ED for eval. Vitals with tachycardia. No fever, normotensive. +AP DDx abdominal pain: GERD, PUD, esophageal spasm, pancreatitis, gallstones, cholecystitis, gallstone vs alcoholic pancreatitis, perf viscus, hepatitis, colitis, gastroenteritis, UTI, pyelonephritis,hernia, appendicitis, diverticulitis Labs and lytes wnl, no wbc ct. Low platelet count and abnormal Coags in setting of known liver disease/alcoholism. AM labs with transaminitis and pending Lipase. ED course: given IVF/LR for hydration, pepcid, pain control with morphine and ativan PRN for symptom based alcohol w/d CT a/p to r/o intra abdominal complication/infection vs pancreatic complication and perf viscus. RUQ sono to eval for biliary obstruction/stones/cholecystitis. Wet read suggests calcifications in pancreas with edema and fat stranding, suggestive of acute pancreatitis. +gallstones present too. possible pancreatic malignancy. Dispo: Admit for pancreatitis, transaminitis and acute alcohol withdrawal and abdominal pain workup. will warrant GI consult, final reads of US/CT scan and pain control, NPO. LR hydration, abx and admission for continued medical management 04/14/18 17:30 <Tessa Mcgee - Last Filed: 04/14/18 17:30> *DC/Admit/Observation/Transfer - Attestations Scribe Attestion: 04/13/18 18:45 Documentation prepared by PAULINA Reeder, acting as medical receptionist biller for Tessa Mcgee MD. <Lissett Vargas - Last Filed: 04/13/18 18:44> - Discharge Dispostion Decision to Admit order: Yes Decision to Admit order Date/Time: 04/13/18 19:51 Decision to Admit Order Category Date Time Status Decision to Admit to Hospital Routine Admission 04/13/18 18:12 Active - Attestations Physician Attestion: 04/13/18 19:51 I, Tessa Mcgee MD, attest that this document has been prepared under my direction and personally reviewed by me in its entirety. I further attest, that it accurately reflects all work, treatment, procedures and medical decision -making performed by me. <Tessa Mcgee - Last Filed: 04/14/18 17:30> Diagnosis at time of Disposition: Alcohol dependence with uncomplicated withdrawal, Chronic alcoholism, Acute pancreatitis, Transaminitis - Discharge Dispostion Condition at time of disposition: Guarded
[2018-04-13] MEDS ORDERED: morphine SULFATE 4 MG/ML VIAL ONE (16:18)
[2018-04-13] MEDS ORDERED: LORazepam 2 MG/ML SDV VIAL ONE ×2 (16:18→20:30)
[2018-04-13 17:35] LABS: BASO % 0.4 % (0-2.0); EOS % 0.2 % (0-4.5); HEMATOCRIT 42.1 % (35.4-49); HEMOGLOBIN 14.4 GM/dL (11.7-16.9); MCH 34.1 pg (25.7-33.7); MCHC 34.1 g/dl (32.0-35.9); MEAN PLT VOLUME 10.2 fl (7.5-11.1); MONO % 16.9 % (3.8-10.2); NEUT % 67.5 % (42.8-82.8); PLATELET COUNT 87 K/MM3 (134-434); RBC 4.21 M/mm3 (4.00-5.60); RDW 14.1 % (11.9-15.9); WHITE BLOOD COUNT 5.8 K/mm3 (4.0-10.0)
[2018-04-13 18:01] LABS: INR 1.2 (0.83-1.09); PROTHROMBIN TIME (PATIENT) 13.6 SEC (9.7-13.0)
[2018-04-13 18:05] LABS: PLATELET ESTIMATE DECREASED
[2018-04-13] MEDS ORDERED: PIPERACILLIN/TAZOB 4.5 GM 4.5 GM in DEXTROSE 5%-WATER - 100 ML IVPB ONE (19:47)
[2018-04-13] MEDS ORDERED: PIPERACILLIN/TAZOB 4.5 GM 4.5 GM/100 ML BAG IVPB ONE (20:30)
--- NOTE | 2018-04-13 21:23 | PDOC ---
*Physical Exam - Vital Signs Last Vital Signs Temp Pulse Resp BP Pulse Ox 97.6 F 99 H 22 99/57 97 04/13/18 14:27 04/13/18 20:00 04/13/18 20:00 04/13/18 20:00 04/13/18 20:00 ED Treatment Course - LABORATORY CBC & Chemistry Diagram: 04/13/18 17:25 04/13/18 17:25 - ADDITIONAL ORDERS Additional order review: Laboratory Results 04/13/18 04/13/18 17:25 17:25 PT with INR 13.60 H INR 1.20 H Sodium Cancelled Potassium Cancelled Chloride Cancelled Carbon Dioxide Cancelled Anion Gap Cancelled BUN Cancelled Creatinine Cancelled Creat Clearance w eGFR Cancelled Random Glucose Cancelled Calcium Cancelled Total Bilirubin Cancelled AST Cancelled ALT Cancelled Alkaline Phosphatase Cancelled Total Protein Cancelled Albumin Cancelled Lipase Cancelled 04/13/18 17:25 RBC 4.21 MCV 100.0 H MCHC 34.1 RDW 14.1 MPV 10.2 Neutrophils % 67.5 Lymphocytes % 15.0 D Monocytes % 16.9 H Eosinophils % 0.2 D Basophils % 0.4 - Medications Given in the ED: ED Medications Discontinued Medications Generic Name Dose Route Start Last Admin Trade Name Freq PRN Reason Stop Dose Admin Famotidine/Sodium Chloride 20 mg in 50 mls @ 100 mls/hr 04/13/18 15:42 17:32 Pepcid 20 Mg Premixed Ivpb - IVPB 04/13/18 16:11 100 mls/hr ONCE ONE Administration Lactated Ringer's 1,000 ml 04/13/18 15:17 04/13/18 17:31 Lactated Ringers Solution IV 04/13/18 15:18 1,000 ml ONCE ONE Administration Lorazepam 2 mg 04/13/18 16:10 04/13/18 17:52 Ativan Injection - IVPUSH 04/13/18 16:11 2 mg ONCE ONE Administration Lorazepam 2 mg 04/13/18 19:16 04/13/18 20:33 Ativan Injection - IVPUSH 04/13/18 19:17 2 mg ONCE ONE Administration Morphine Sulfate 4 mg 04/13/18 16:09 04/13/18 17:32 Morphine Injection - IVPUSH 04/13/18 16:10 4 mg ONCE ONE Administration Medical Decision Making - Medical Decision Making 04/13/18 21:19 Care received at 1900 CTAP with tail mass vs pancreatitis Pt given zosyn in case of obst US with normal CBD, cholelthiasis but no cholecystitis Case discussed with Dr. Ellis, pt admitted to Dr. Macias Case discussed with Dr. Yu who will see pt in the AM, has no further recs at this time Case discussed in detail with admitting physician including history, physical exam and ancillary studies. Admitting physician has assumed care for the patient, will follow all pending diagnostics and will complete the evaluation and treatment. *DC/Admit/Observation/Transfer Diagnosis at time of Disposition: Alcohol dependence with uncomplicated withdrawal, Chronic alcoholism, Acute pancreatitis, Transaminitis - Discharge Dispostion Condition at time of disposition: Guarded Decision to Admit order: Yes - Referrals - Patient Instructions - Post Discharge Activity - Attestations Physician Attestion: 04/13/18 21:23 I, Dr. Delfina Story MD, attest that this document has been prepared under my direction and personally reviewed by me in its entirety. I further attest, that it accurately reflects all work, treatment, procedures and medical decision -making performed by me.
[2018-04-13] MEDS ORDERED: FOLIC ACID INJECTION - 1 MG, THIAMINE HCL 100 MG, MULTIVIT INJECTION ADULT 10 ML in SOD... IVPB ONE (23:15)
--- NOTE | 2018-04-14 01:11 | HP ---
CHIEF COMPLAINT: Abdominal pain PCP: None HISTORY OF PRESENT ILLNESS: The patient was uncooperative during the interview. As a result, the majority of the following history was obtained from the medical record. The patient is a 68 yo f w/ PMH ETOH abuse, HIV, VATS for right lung infection who comes into the ED from [facility] c/o 05/04 RUQ and epigastric abdominal pain. The patient also endorsed sweats, chills as well as dizziness upon standing. ER course was notable for: (1) ativan 2mg x2 (2) morphine 4mg (3) famotidine 20mg (4) CTAP showing enlargement of the pancreatic head with surrounding stranding concerning for possible pancreatic mass vs pancreatitis. Recent Travel: none PAST MEDICAL HISTORY: GERD HTN HIV (CD4 count, Viral load unknown) PAST SURGICAL HISTORY: VATS in 2015 for partial removal of kidney and lung 2/2 infection Social History: Smoking: former smoker, quit in Alcohol: amount of ETOH intake unknown, last drink yesterday morning Drugs: unknown Family History: unknown Allergies No Known Allergies Allergy (Verified 04/13/18 14:29) HOME MEDICATIONS: Home Medications Medication Instructions Recorded Hydrochlorothiazide [Hctz -] 12.5 mg PO DAILY 12/04/16 Folic Acid - 1 mg PO DAILY #30 tablet 12/08/16 Pantoprazole Sodium [Protonix -] 40 mg PO DAILY #30 cap 12/08/16 Thiamine HCl [Vitamin B1 -] 100 mg PO DAILY #30 tablet 12/08/16 REVIEW OF SYSTEMS limited secondary to patient's clinical status PHYSICAL EXAMINATION Vital Signs - 24 hr 04/13/18 04/13/18 04/13/18 14:27 18:40 20:00 Temperature 97.6 F Pulse Rate 107 H Pulse Rate [ 102 H 99 H Radial] Respiratory 16 22 22 Rate Blood Pressure 112/77 Blood Pressure 105/76 99/57 [Left Arm] O2 Sat by Pulse 100 99 97 Oximetry (%) 04/13/18 04/13/18 21:59 22:14 Temperature Pulse Rate Pulse Rate [ 99 H Radial] Respiratory 20 Rate Blood Pressure Blood Pressure 112/77 [Left Arm] O2 Sat by Pulse 95 96 Oximetry (%) GENERAL: Patient lethargic, easily rousable to touch, falls asleep frequently throughout the interview HEAD: Normal with no signs of trauma. EYES: Pupils equal, round and reactive to light, extraocular movements intact, sclera anicteric, conjunctiva clear. No lid lag. EARS, NOSE, THROAT: Possible thrush seen on the tongue. Moist mucous membranes. NECK: Normal range of motion, supple without lymphadenopathy, JVD, or masses. LUNGS: Breath sounds equal, clear to auscultation bilaterally. No wheezes, and no crackles. No accessory muscle use. HEART: Regular rate and rhythm, normal S1 and S2 without murmur, rub or gallop. ABDOMEN: Soft, Patient grimaces in response to palpation of upper quadrants. not distended, normoactive bowel sounds, no guarding, no rebound, no masses. No hepatomegaly or splenomegaly. LOWER EXTREMITIES: 2+ pulses, warm, well-perfused. No calf tenderness. No peripheral edema. NEUROLOGICAL: unable to conduct due to patient's clinical status SKIN: Warm, dry, normal turgor, no rashes or lesions noted, normal capillary refill. Laboratory Results - last 24 hr 04/13/18 04/13/18 04/13/18 17:25 17:25 17:25 WBC 5.8 RBC 4.21 Hgb 14.4 Hct 42.1 D MCV 100.0 H MCH 34.1 H MCHC 34.1 RDW 14.1 Plt Count 87 L D MPV 10.2 Absolute Neuts (auto) 3.9 Neutrophils % 67.5 Neutrophils % (Manual) 68.0 Band Neutrophils % 2.0 Lymphocytes % 15.0 D Lymphocytes % (Manual) 14.0 Monocytes % 16.9 H Monocytes % (Manual) 16 H Eosinophils % 0.2 D Basophils % 0.4 Nucleated RBC % 0 Hypochromia 1+ Platelet Estimate Decreased PT with INR 13.60 H INR 1.20 H Sodium Cancelled Potassium Cancelled Chloride Cancelled Carbon Dioxide Cancelled Anion Gap Cancelled BUN Cancelled Creatinine Cancelled Creat Clearance w eGFR Cancelled Random Glucose Cancelled Calcium Cancelled Total Bilirubin Cancelled AST Cancelled ALT Cancelled Alkaline Phosphatase Cancelled Total Protein Cancelled Albumin Cancelled Lipase Cancelled ASSESSMENT/PLAN: The patient is a 68 yo m w/ PMH ETOH abuse, HIV, lung resection for infection who comes into the ED c/o epigastric pain and RUQ pain. #abdominal pain possibly 2/2 ETOH gastritis vs pancreatitis r/o hepatic eitology -Patient difficult to stick in ED, therefore only labs are from his admission to [facility] the morning of 04/13. -CT AP shows pancreatic mass vs pancreatitis -will order urine and serum acetone -will order utox, ETOH level -will order Hepatitis serologies -will order CA 19-9 -will order tylenol level #ETOH abuse -CIWA 9 on interview -suggest ativan protocol for withdrawal -will hold standing ativan as patient lethargic -2mg ativan PO PRN ETOH withdrawal with hold parameters #patient is hard stick without access -will encourage PO intake and hydration with the hopes of easier access -ED, IM, nursing and anesthesia staff unable to gain access -patient may require central line for IVF #Hx of HIV -will order viral load, CD4 count -patient's home HAART regimen must be verified once he is more alert #possible thrush seen on tongue -Nystatin swish and swallow #FEN -unable to give IVF at this time as patient does not have IV access -lytes unknown as no recent labs -fat/sodium controlled diet #Dispo -admit med surg -patient's home medications unverified Visit type - Emergency Visit Emergency Visit: Yes ED Registration Date: 04/13/18 Care time: The patient presented to the Emergency Department on the above date and was hospitalized for further evaluation of their emergent condition. - New Patient This patient is new to me today: Yes Date on this admission: 04/14/18 - Critical Care Critical Care patient: No Hospitalist Screening - Colonoscopy Questionnaire Colonoscopy Questionnaire: Colonoscopy Questionnaire - Patient: 50 - 75 years old and never had a screening colonoscopy: Unknown History of colon or rectal polyps, or CA: Unknown History of IBD, Crohn's disease or UC: Unknown History of abdominal radiation therapy as a child: Unknown - Relative: 1 with colon or rectal CA, or polyps at age 60 or younger: Unknown Colon or rectal CA diagnosed at age 45 or younger: Unknown Multiple relatives with colon or rectal CA: Unknown - Outcome: Screening Result: Negative Screen
--- NOTE | 2018-04-14 02:22 | PN ---
Teaching Attending Note Name of Resident: Pnocho Ellis ATTENDING PHYSICIAN STATEMENT I saw and evaluated the patient. Chart, data, imaging reviewed. I reviewed the resident's note and discussed the case with the resident. I agree with the resident's findings and plan as documented. History obtained from EMR as pt was uncooperative during interview SUBJECTIVE: 68 year old male with significant past medical history of ETOH dependence, HIV ( unknown CD4 count or med regimen), recent thoracotomy for right lung infection, sent from [facility] detox for abnormal lab values and complaining of RUQ abdominal pain, multiple episodes of vomiting, and diarrhea that began yesterday morning, worse today. Uncertain when last drink was but likely on . Unable to draw chemistry in ER, but labs from [facility] showed transaminitis. OBJECTIVE: Last Vital Signs Temp Pulse Resp BP Pulse Ox 98.2 F 100 H 20 120/83 96 04/14/18 01:55 04/14/18 01:55 04/14/18 01:55 04/14/18 01:55 04/13/18 22:14 general -nontoxic appearing, stuporous, following commands heent- atraumatic, normocephalic, possible oral thrush but unable to fully see due to lack of cooperation neck -supple cv - s1+s2+ rrr chest - b/l air entry sounds abdomen -soft, bs decreased, some guarding ext -no pedal edema, no rashes Abnormal Lab Results 04/13/18 04/13/18 17:25 17:25 MCV 100.0 H MCH 34.1 H Plt Count 87 L D Monocytes % 16.9 H Monocytes % (Manual) 16 H PT with INR 13.60 H INR 1.20 H ekg -reviewed Hepatobiliary US and Abd CT reviewed, CT showed pancreatic tail mass, chronic calcific pancreatitis, diffuse fatty liver ASSESSMENT AND PLAN: 68yo man etoh dependence with transaminitis and likely impending etoh withdrawal. Transaminitis is likely from etoh abuse. Should r/o viral hepatitis (especially given Hx of HIV) and tylenol abuse. -admit to med/surg #Transaminitis- -send etoh level -hepatitis b, c serologies -tylenol level -trend lfts -urine drug screen #impending etoh withdrawal -hold sedatives currently as patient is stuporous -ciwa -thiamine -folate -MV -IV fluid hydration -fall precautions -bed rest -order mg level supplement prn #Pancreatic tail mass - seen on CT of abd/pelvis -GI consult for further w/u #HIV -uncertain VL or CD4 count -send VL, T lymphocyte count -call pharmacy to obtain medication regimen -nystatin swish and swallow for oral thrush #Hyperglycemia - was 506 at midday , ag wnl -check serum, urine ketones -a1c -lipid panel -ALMA DELIA -basal insulin heparin sc for dvt ppx
[2018-04-14] MEDS ORDERED: TRIPLE LUMEN FLUSH 4 ML ML IVPUSH PRN (02:41)
[2018-04-14] MEDS: NYSTATIN 500,000 UNITS/5 ML SUSPENSION PO SCH ×4 (06:31→23:09)
[2018-04-14] MEDS ORDERED: LORazepam 1 MG TABLET PO PRN ×3 (07:02→13:56)
--- NOTE | 2018-04-14 09:57 | EKG ---
Test Reason : Blood Pressure : / mmHG Vent. Rate : 100 BPM Atrial Rate : 100 BPM P-R Int : 154 ms QRS Dur : 072 ms QT Int : 316 ms P-R-T Axes : 017 051 035 degrees QTc Int : 407 ms NORMAL SINUS RHYTHM NORMAL ECG WHEN COMPARED WITH ECG OF 12-APR-2018 17:36, NO SIGNIFICANT CHANGE WAS FOUND Confirmed by LANE ZAMORA MD ([id number]) on 04/14/2018 9:56:42 AM Referred By: Confirmed By:LANE ZAMORA MD
[2018-04-14] MEDS ORDERED: HYDROCHLOROTHIAZIDE 12.5 MG CAPSULE (FP) PO SCH (10:00)
[2018-04-14] MEDS: FOLIC ACID 1 MG TABLET (FP) PO SCH (10:43)
[2018-04-14] MEDS: ENOXAPARIN NA (PORCINE) 40 MG/0.4 ML DISP.SYRIN SQ SCH (10:43)
[2018-04-14] MEDS: PANTOPRAZOLE 40 MG TABLET (FP) PO SCH (10:43)
[2018-04-14] MEDS: THIAMINE HCL 100 MG TABLET (FP) PO SCH (10:43)
[2018-04-14] MEDS ORDERED: INSULIN (NOVOLOG) ASPART 100 UNITS/ML 10ML VIAL ONE ×2 (11:56→20:12)
[2018-04-14] MEDS: INSULIN SLIDING SCALE (NOVOLOG) 1 VIAL SQ SCH ×3 (12:03→23:12)
--- NOTE | 2018-04-14 14:00 | CON.GI ---
Consult Consult Specialty:: GI Reason for Consultation:: pancreatitis, ETOH - History of Present Illness History of Present Illness: Chart reviewed. Admitting records noted. Per initial encounter on 04/13/18: The patient is a 68 year old male with significant past medical history of ETOH dependence, HIV, recent thoracotomy for right lung infection, who presents today from [facility] detox complaining of RUQ abdominal pain, multiple episodes of vomiting, and diarrhea that began yesterday morning, worse today. The patient was also sent here today for abnormal lab values. He reports that his RUQ and epigastric abdominal pain is a 10/10 in severity. The patient also reports sweats, chills, and dizziness upon standing. He states that the last time he drank was yesterday morning. The patient presented to [facility] detox yesterday requesting detox from alcohol. Denies any urinary symptoms. Denies chest pain, cough, difficulty breathing. At the time of this encounter the pt appeared not in distress, or discomfort, sleepy, abusable, however, cannot provide coherent history. C/o generalized abdominal tenderness on exam. HGB - normal MCV [address]/ABDOMEN & PELVIS CT WITH CONTR Abdomen and pelvis CT (without contrast) Clinical information: evaluate for perforation, appendicitis Multiplanar imaging was performed. No intravenous or enteric contrast was administered. In comparison to a prior CT exam of 12/03/2016 interval development of focal enlargement of the pancreatic tail is noted with associated development of mild adjacent peripancreatic soft tissue stranding. In addition on the current exam the pancreatic tail lesion now abuts and possibly involves the medial wall of the descending colon adjacent to the splenic flexure. The remainder of the exam demonstrates no definite interval change. Multiple small calcifications are seen within the uncinate process of the pancreas and to a lesser extent within the head and neck consistent with chronic calcific pancreatitis. The appendix is not definitely identified however there are no indirect CT signs of acute appendicitis. No evidence of pneumoperitoneum, ascites, abscess or bowel obstruction. Cholelithiasis is noted without CT evidence of acute cholecystitis. There is no definite biliary tract dilatation. Diffuse fatty infiltration of the liver is seen. Several nonobstructing bilateral renal calyceal calculi are noted the most prominent measuring 0.5 cm in diameter. The spleen, and adrenal glands demonstrate no obvious noncontrast pathology. There is no aortic aneurysm. No definite lymphadenopathy is noted on the basis of CT size criteria. There is no gross small bowel pathology. Sigmoid diverticulosis is seen without evidence of acute diverticulitis. The osseous structures demonstrate no gross CT evidence of acute pathology or neoplastic disease. Note is made of interval resolution of a very small right pleural effusion. mild pleural thickening is again seen within the right lower chest with associated pleural calcification. IMPRESSION: In comparison to a prior CT exam of 12/03/2016 interval focal enlargement of the pancreatic tail is noted with probable contiguous involvement of the adjacent descending colon. This finding is probably on the basis of neoplastic disease although focal pancreatitis or diverticulitis could conceivably be a consideration. The remainder of the abdomen/pelvis demonstrates no definite interval change. No CT evidence of acute appendicitis. Cholelithiasis. Chronic calcific pancreatitis. Diffuse hepatic steatosis. Bilateral nonobstructing renal calculi. 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 Home Medications - Allergies Allergies/Adverse Reactions: Allergies Allergy/AdvReac Type Severity Reaction Status Date / Time No Known Allergies Allergy Verified 04/13/18 14:29 - Home Medications Home Medications: Ambulatory Orders Hydrochlorothiazide [Hctz -] 12.5 mg PO DAILY 12/04/16 Folic Acid - 1 mg PO DAILY #30 tablet 12/08/16 Pantoprazole Sodium [Protonix -] 40 mg PO DAILY #30 cap 12/08/16 Thiamine HCl [Vitamin B1 -] 100 mg PO DAILY #30 tablet 12/08/16 Abacavir Sulfate/Lamivudine [Epzicom Tablet] 1 tablet PO DAILY 04/14/18 Family Disease History - Family Disease History Family Disease History: CA: Mother (Breast Ca, .), Other: Father ( Alcohol; .) Review of Systems Findings/Remarks: as per HPI, ED, H&P Physical Exam-GI Vital Signs: Vital Signs Temperature 97.7 F 04/14/18 06:00 Pulse Rate 98 H 04/14/18 06:00 Respiratory Rate 20 04/14/18 06:00 Blood Pressure 114/72 04/14/18 06:00 O2 Sat by Pulse Oximetry (%) 96 04/14/18 02:50 Constitutional: Yes: No Distress, Calm, Poor Hygeine Eyes: No: Sclera Icterus HENT: Yes: Atraumatic Neck: Yes: Supple Cardiovascular: Yes: Regular Rate and Rhythm Respiratory: Yes: Regular Gastrointestinal Inspection: No: Ascites, Distention ...Auscultate: Yes: Normoactive Bowel Sounds ...Palpate: Yes: Tenderness, Tenderness, Epigastium. No: Firm/Rigid, Guarding Neurological: Yes: Lethargy Labs: CBC, BMP 04/13/18 17:25 04/13/18 17:25 INR, PTT INR 1.20 (0.83-1.09) H 04/13/18 17:25 Laboratory Tests 04/13/18 04/13/18 04/13/18 17:25 17:25 17:25 WBC 5.8 RBC 4.21 Hgb 14.4 Hct 42.1 D MCV 100.0 H MCH 34.1 H MCHC 34.1 RDW 14.1 Plt Count 87 L D MPV 10.2 Absolute Neuts (auto) 3.9 Neutrophils % 67.5 Neutrophils % (Manual) 68.0 Band Neutrophils % 2.0 Lymphocytes % 15.0 D Lymphocytes % (Manual) 14.0 Monocytes % 16.9 H Monocytes % (Manual) 16 H Eosinophils % 0.2 D Basophils % 0.4 Nucleated RBC % 0 Hypochromia 1+ Platelet Estimate Decreased PT with INR 13.60 H INR 1.20 H Sodium Cancelled Potassium Cancelled Chloride Cancelled Carbon Dioxide Cancelled Anion Gap Cancelled BUN Cancelled Creatinine Cancelled Creat Clearance w eGFR Cancelled POC Glucometer Random Glucose Cancelled Calcium Cancelled Total Bilirubin Cancelled AST Cancelled ALT Cancelled Alkaline Phosphatase Cancelled Total Protein Cancelled Albumin Cancelled Lipase Cancelled 04/14/18 11:45 WBC RBC Hgb Hct MCV MCH MCHC RDW Plt Count MPV Absolute Neuts (auto) Neutrophils % Neutrophils % (Manual) Band Neutrophils % Lymphocytes % Lymphocytes % (Manual) Monocytes % Monocytes % (Manual) Eosinophils % Basophils % Nucleated RBC % Hypochromia Platelet Estimate PT with INR INR Sodium Potassium Chloride Carbon Dioxide Anion Gap BUN Creatinine Creat Clearance w eGFR POC Glucometer 300 Random Glucose Calcium Total Bilirubin AST ALT Alkaline Phosphatase Total Protein Albumin Lipase Imaging - Results Cat Scan: Report Reviewed Problem List - Problems (1) Alcohol dependence with uncomplicated withdrawal Code(s): F10.230 - ALCOHOL DEPENDENCE WITH WITHDRAWAL, UNCOMPLICATED (2) Chronic alcoholism Code(s): F10.20 - ALCOHOL DEPENDENCE, UNCOMPLICATED Assessment/Plan A 68M, poor historian, with chronic ETOH abuse and abnormal CT of the pancrease suspicious for malignancy. Only partial, basic blood work results available. CA 19-9 Lipase CEA AFP CMP Direct bili B12/Folate Alcohol withdrawal management as per primary team
--- NOTE | 2018-04-14 16:46 | PN ---
Teaching Attending Note Name of Resident: Sugey Du ATTENDING PHYSICIAN STATEMENT I saw and evaluated the patient. I reviewed the resident's note and discussed the case with the resident. I agree with the resident's findings and plan as documented. SUBJECTIVE:abdominal pain is improved. worse in epigastrium. no more nausea. tolerating diet. denies Cp, SOB, fever, chills, N/V/C/D OBJECTIVE: Last Vital Signs Temp Pulse Resp BP Pulse Ox 97.9 F 95 H 20 114/72 96 04/14/18 15:08 04/14/18 15:08 04/14/18 06:00 04/14/18 06:00 04/14/18 02:50 General slow to respond. resistant to answer questions, alert HEENT anicteric CV S1 S2 RRR no murmur/rub/gallop Lungs CTA anteriorly as pt refused to sit up Abdomen +epigastric tenderness/RUQ tenderness soft normoactive BS refused examination of liver. Extremiteis +clubbing no edema +tremor ASSESSMENT AND PLAN: 68yo M wtih PMH Continuous ETOH dependence and HIV and HCV with recent thoracotomy for lung infection sent from [facility] due to abnormal labs 1. Acute transaminitis-Not consistent with ETOH use, CBD is patent. check hepatitis panel. Gi consulted 2. Pancreatic mass- high concern for malignancy. increased in size from 2017 CT. check CEA, CA 19-9, AFP. Gi consulted 3. Abdominal pain- concern for pancreatitis vs pancreatic mass. some pain is also noted along surgical scars from thoracotmy may be neuropathic. chronic pancreatitis seen on CT. lipase pending. was given diet and is tolerating will cont for now 4. Continious ETOH depdence- CIWA 4. not in active withdrawals. last drink was yesterday. will monitor. No IV access at this time to give IVF. cont thiamine/ folate/MVI. will d/w with patient about inpatient rehab when medically optimized. no indication for detox at this time. monitor and start BZD protocol if necessary 5. HIV- unclear if taking medications as pt not giving answer. will need to call pharmacy and verify 6. thoracotomy from recent infection- will see if can obtain recent medical records 7. DVT ppx- lovenox 8. unable to obtain IV access. may need to place central line for access
--- NOTE | 2018-04-14 17:27 | PN ---
Physical Exam: SUBJECTIVE: Patient seen and examined at bedside this morning. Patient reports improvement of abdominal pain. No nausea or vomiting, chest pain, SOB, palpitations, fever, chills, diarrhea or constipation OBJECTIVE: Vital Signs Period Temp Pulse Resp BP Sys/Mckeon Pulse Ox Last 24 Hr 97.2 F-98.2 F 88-102 20-22 99-120/57-83 95-99 GENERAL: The patient is awake, alert, and fully oriented, in no acute distress. HEAD: Normal with no signs of trauma. EYES: PERRLA, EOMI, sclera anicteric, conjunctiva clear. ENT: Ears normal, nares patent, oropharynx clear without exudates, dry mucous membranes. NECK: Trachea midline, full range of motion, supple. LUNGS: Breath sounds equal, clear to auscultation bilaterally. HEART: Regular rate and rhythm, S1, S2 without murmur, rub or gallop. ABDOMEN: Soft, RUQ and epigastric tenderness on palpation, nondistended, normoactive bowel sounds. EXTREMITIES: 2+ pulses, warm, well-perfused, +clubbing, +1 pedal edema L>R, + hand tremor L>R NEUROLOGICAL: Cranial nerves II through XII grossly intact. Normal speech, gait not observed. PSYCH: Normal mood, normal affect. SKIN: Warm, dry, normal turgor, no rashes or lesions noted Laboratory Results - last 24 hr 04/13/18 04/13/18 04/13/18 17:25 17:25 17:25 WBC 5.8 RBC 4.21 Hgb 14.4 Hct 42.1 D MCV 100.0 H MCH 34.1 H MCHC 34.1 RDW 14.1 Plt Count 87 L D MPV 10.2 Absolute Neuts (auto) 3.9 Neutrophils % 67.5 Neutrophils % (Manual) 68.0 Band Neutrophils % 2.0 Lymphocytes % 15.0 D Lymphocytes % (Manual) 14.0 Monocytes % 16.9 H Monocytes % (Manual) 16 H Eosinophils % 0.2 D Basophils % 0.4 Nucleated RBC % 0 Hypochromia 1+ Platelet Estimate Decreased PT with INR 13.60 H INR 1.20 H Sodium Cancelled Potassium Cancelled Chloride Cancelled Carbon Dioxide Cancelled Anion Gap Cancelled BUN Cancelled Creatinine Cancelled Creat Clearance w eGFR Cancelled POC Glucometer Random Glucose Cancelled Calcium Cancelled Total Bilirubin Cancelled Direct Bilirubin AST Cancelled ALT Cancelled Alkaline Phosphatase Cancelled Total Protein Cancelled Albumin Cancelled Lipase Cancelled CA 19-9 Antigen Vitamin B12 Serum Folate Blood Type Antibody Screen 04/14/18 04/14/18 04/14/18 11:45 14:30 14:30 WBC RBC Hgb Hct MCV MCH MCHC RDW Plt Count MPV Absolute Neuts (auto) Neutrophils % Neutrophils % (Manual) Band Neutrophils % Lymphocytes % Lymphocytes % (Manual) Monocytes % Monocytes % (Manual) Eosinophils % Basophils % Nucleated RBC % Hypochromia Platelet Estimate PT with INR INR Sodium Cancelled Potassium Cancelled Chloride Cancelled Carbon Dioxide Cancelled Anion Gap Cancelled BUN Cancelled Creatinine Cancelled Creat Clearance w eGFR Cancelled POC Glucometer 300 Random Glucose Cancelled Calcium Cancelled Total Bilirubin Cancelled Direct Bilirubin Cancelled AST Cancelled ALT Cancelled Alkaline Phosphatase Cancelled Total Protein Cancelled Albumin Cancelled Lipase Cancelled CA 19-9 Antigen Cancelled Vitamin B12 Cancelled Serum Folate Cancelled Blood Type Antibody Screen 04/14/18 04/14/18 04/14/18 14:30 14:30 16:22 WBC RBC Hgb Hct MCV MCH MCHC RDW Plt Count MPV Absolute Neuts (auto) Neutrophils % Neutrophils % (Manual) Band Neutrophils % Lymphocytes % Lymphocytes % (Manual) Monocytes % Monocytes % (Manual) Eosinophils % Basophils % Nucleated RBC % Hypochromia Platelet Estimate PT with INR INR Sodium Potassium Chloride Carbon Dioxide Anion Gap BUN Creatinine Creat Clearance w eGFR POC Glucometer Random Glucose Calcium Total Bilirubin Direct Bilirubin Cancelled AST ALT Alkaline Phosphatase Total Protein Albumin Lipase CA 19-9 Antigen Vitamin B12 Cancelled Serum Folate Blood Type Cancelled Antibody Screen Cancelled Active Medications Generic Name Dose Route Start Last Admin Trade Name Freq PRN Reason Stop Dose Admin Abacavir Sulfate 600 mg 04/15/18 10:00 Ziagen - PO DAILY MARGO Enoxaparin Sodium 40 mg 04/14/18 10:00 04/14/18 10:43 Lovenox - SQ 40 mg DAILY MARGO Administration Folic Acid 1 mg 04/14/18 10:00 04/14/18 10:43 Folic Acid - PO 1 mg DAILY MARGO Administration Hydrochlorothiazide 12.5 mg 04/14/18 10:00 04/14/18 10:43 Hctz - PO 12.5 mg DAILY MARGO Administration Lactated Ringer's 1,000 ml in 1,000 mls @ 100 mls/hr 04/14/18 08:45 Lactated Ringers Solution IV ASDIR MARGO Insulin Aspart 1 vial 04/14/18 07:00 04/14/18 12:03 Novolog Vial Sliding Scale - SQ 6 units ACHS MARGO Administration Protocol Lamivudine 300 mg 04/15/18 10:00 Epivir - PO DAILY MARGO Lorazepam 2 mg 04/14/18 13:56 Ativan - PO Q8H PRN ANXIETY Nystatin 500,000 units 04/14/18 06:00 04/14/18 06:31 Nystatin Oral Suspension - PO Not Given Q6HPO MARGO Pantoprazole Sodium 40 mg 04/14/18 10:00 04/14/18 10:43 Protonix - PO 40 mg DAILY MARGO Administration Thiamine HCl 100 mg 04/14/18 10:00 04/14/18 10:43 Vitamin B1 - PO 100 mg DAILY MARGO Administration ASSESSMENT/PLAN: The patient is a 68 yo m w/ PMH ETOH abuse, HIV, lung resection for infection who comes into the ED c/o epigastric pain and RUQ pain. #RUQ and epigastric pain: likely 2/2 pancreatitis vs pancreatic mass -pt also report pain on palpation at the surgical site where he had lung resection (2016) -Able to tolerate solid diet with no reports of N/V/D/C. -CT ab/pelvis - In comparison to CT exam on 12/03/16, interval focal enlargement of the pancreatic tail is noted with probably contiguous involvement of the adjacent descending colon. This finding is probably on the basis of neoplastic disease although focal pancreatitis or diverticulitis could conceivably be a consideration. The remainder of the abd/pelvis demonstrates no definite interval change. No CT evidence of acute appendicitis. Cholelithiasis. Chronic calcific pancreatitis. Diffuse hepatic steatosis. Bilteral nonobstructing renal calculi. -GI (Dr. Alvarado) consulted. Recommendations appreciated. -CA 19-9, Lipase, CEA, AFP, CMP, Direct bili, B12/Folate #Acute transaminitis: (04/13/18 - done at [facility]) AST 262, ALT 258, ALP 216 -May be due to EtOH use vs. Hepatitis -Since last night, patient difficult to put an IV in. No IV access established. ED, IM, nursing and anesthesia staff unable to gain access. -Patient was advised to drink plenty of fluids. -Today, Dr. Luo tried multiple times including ext. jugular vein but with no success. Was able to get some blood but hemolyzed. -Patient refused to be stuck anymore today, will try again tomorrow. May need to place central line. -Hepatitis panel, LFTs, CA 19-9, Lipase, CEA, AFP, Direct bilirubin, B12, Folate levels pending. #ETOH abuse -CIWA 5, last drink was yesterday morning. -Not in active withdrawal -Thiamine, Folate, MV given. -Monitor and start Ativan protocol if necessary. -Ativan 2mg q8h PRN EtOH withdrawal symptoms. #HIV -patient taking Epzicom (Abacavir/Lamivudine) at home daily. -Viral load and CD4 count ordered. #Hyperglycemia -Random glucose today 300 -HbA1c, Lipid panel ordered -BGM ACHS -Implement SSI #FEN -Not on any fluids since no IV access. Will need IVF -lytes unknown as no recent labs -fat/sodium controlled/ diabetic diet #Prophylaxis -Heparin 5000 units sq tid #Disposition -admit to med-surg Visit type - Emergency Visit Emergency Visit: Yes ED Registration Date: 04/13/18 Care time: The patient presented to the Emergency Department on the above date and was hospitalized for further evaluation of their emergent condition. - New Patient This patient is new to me today: Yes Date on this admission: 04/14/18 - Critical Care Critical Care patient: No
[2018-04-14] MEDS: LACTATED RINGERS SOLUTION 1,000 ML/1,000 ML INFUS.BAG IV SCH (17:59)
[2018-04-15] MEDS: NYSTATIN 500,000 UNITS/5 ML SUSPENSION PO SCH ×3 (06:15→17:18)
[2018-04-15] MEDS: INSULIN SLIDING SCALE (NOVOLOG) 1 VIAL SQ SCH ×4 (06:15→21:51)
[2018-04-15 08:23] LABS: BASO % 0.1 % (0-2.0); EOS % 0.8 % (0-4.5); HEMATOCRIT 35.7 % (35.4-49); HEMOGLOBIN 12.1 GM/dL (11.7-16.9); LYMPH % 23.3 % (8-40); MCHC 33.8 g/dl (32.0-35.9); MEAN CELL VOLUME 103.5 fl (80-96); MEAN PLT VOLUME 9.8 fl (7.5-11.1); MONO % 32.3 % (3.8-10.2); NEUT % 43.5 % (42.8-82.8); PLATELET COUNT 155 K/MM3 (134-434); RBC 3.45 M/mm3 (4.00-5.60); RDW 13.8 % (11.9-15.9)
[2018-04-15 08:40] LABS: ALBUMIN 2.8 g/dl (3.4-5.0); ALK PHOS 212 U/L (45-117); ANION GAP 8 MMOL/L (8-16); BILIRUBIN,TOTAL 2.5 mg/dL (0.2-1); BLOOD UREA NITROGEN 19 mg/dL (7-18); CALCIUM 9.8 mg/dL (8.5-10.1); CHLORIDE 96 mmol/L (98-107); CO2 34 mmol/L (21-32); CREATININE 0.8 mg/dL (0.55-1.3); GLUCOSE,RANDOM 108 mg/dL (74-106); MAGNESIUM 1.5 mg/dL (1.8-2.4); POTASSIUM 3.8 mmol/L (3.5-5.1); SGOT/AST 117 U/L (15-37); SGPT/ALT 171 U/L (13-61); SODIUM 138 mmol/L (136-145); TOT PROT 6.4 g/dl (6.4-8.2)
[2018-04-15 08:55] LABS: PHOSPHOROUS 0.8 mg/dL (2.5-4.9)
[2018-04-15 08:57] LABS: BILIRUBIN,DIRECT 1.8 mg/dL (0.0-0.2)
[2018-04-15] MEDS: LACTATED RINGERS SOLUTION 1,000 ML/1,000 ML INFUS.BAG IV SCH (09:59)
[2018-04-15] MEDS ORDERED: PT OWN MED DRAWER 7, Y5N ONE (10:01)
[2018-04-15] MEDS: FOLIC ACID 1 MG TABLET (FP) PO SCH (10:03)
[2018-04-15] MEDS: THIAMINE HCL 100 MG TABLET (FP) PO SCH (10:03)
[2018-04-15] MEDS: lamiVUDine 150 MG TABLET PO SCH (10:03)
[2018-04-15] MEDS: ABACAVIR SULFATE 300 MG TABLET PO SCH (10:03)
[2018-04-15] MEDS: PANTOPRAZOLE 40 MG TABLET (FP) PO SCH (10:03)
[2018-04-15] MEDS: ENOXAPARIN NA (PORCINE) 40 MG/0.4 ML DISP.SYRIN SQ SCH (10:03)
[2018-04-15] MEDS ORDERED: MAGNESIUM OXIDE 400 MG TABLET (FP) PO ONE (10:45)
[2018-04-15] MEDS ORDERED: NAPH,MB-DB/K PH,MBDB POWDER PACKET PO ONE ×2 (10:45→16:14)
[2018-04-15 11:52] LABS: ANISOCYTOSIS 0; MACROCYTOSIS 0; PLATELET ESTIMATE DECREASED; TARGET CELLS 1+
--- NOTE | 2018-04-15 12:48 | PN ---
Teaching Attending Note Name of Resident: Sugey Du ATTENDING PHYSICIAN STATEMENT I saw and evaluated the patient. I reviewed the resident's note and discussed the case with the resident. I agree with the resident's findings and plan as documented. SUBJECTIVE:pain is better. tolerating diet. pain is now in RLQ. denies CP, SOB, fever, chills states he is not always complaint with medications. does not recall last time he visited his PMD and had lab work done OBJECTIVE: Last Vital Signs Temp Pulse Resp BP Pulse Ox 98.6 F 70 20 90/58 L 98 04/15/18 10:00 04/15/18 10:00 04/15/18 10:00 04/15/18 10:00 04/15/18 09:00 General A&Ox3. slow to respond HEENT icteric, EOMI, B/L white discharge. erythema to R sclera Abdomen refused exam of abdomen ASSESSMENT AND PLAN: 68yo M wtih PMH Continuous ETOH dependence DM, HTN, and HIV with recent thoracotomy for lung infection [place] [facility] [place] abnormal labs 1. Acute transaminitis- likely viral hepatitis vs medication induced. improving without treatment as there is no IV access. labs are all trending down. will hold HARRT therapy if pt is not compliant at home. disc function score low. GI on board. 2. Pancreatic mass- high concern for malignancy. increased in size from [address] CT. pending CEA, CA 19-9, AFP. Gi consulted 3. B/L conjunctivitis- start cipro ggts 4. Severe hypophosphatemia- neutraphos until can secure IV access for IV 5. Hypomangesemia- Mg po 6. Abdominal pain- concern for pancreatitis vs pancreatic mass. pain now in RLQ. lipase normal. tolerating diet. not requesting pain mediction. appears to be more chronic from thorcotomy as pt states he has had pain there since then. 7. Continious ETOH depdence- CIWA 0. not in active withdrawals. no indication for detox. cont thiamine/folate/MVI. will d/w with patient about inpatient rehab when medically optimized. no indication for detox at this time. monitor and start BZD protocol if necessary 8. DM- BGM and iss 9. HTN- here hypotensive. will d/c antihypertensives. 10. HIV- appears he has script but admits to not being compliant. will hold meds for now. reach out to PMD for recent lab work including CD4, VL 11. thoracotomy from recent infection- will see if can obtain recent medical records 12. DVT ppx- lovenox 13. unable to place access yesterday. refused attempts in the afternoon or central line placement. willing to try today. if unable will need to consider central line
[2018-04-15] MEDS ORDERED: CIPROFLOXACIN 0.3% EYE DROPS 5 ML BOTTLE OD SCH (13:45)
[2018-04-15 15:54] LABS: ALBUMIN 2.2 g/dl (3.4-5.0); ALK PHOS 165 U/L (45-117); ANION GAP 6 MMOL/L (8-16); BILIRUBIN,TOTAL 1.7 mg/dL (0.2-1); BLOOD UREA NITROGEN 16 mg/dL (7-18); CALCIUM 7.3 mg/dL (8.5-10.1); CHLORIDE 108 mmol/L (98-107); CO2 29 mmol/L (21-32); CREATININE 0.5 mg/dL (0.55-1.3); GLUCOSE,RANDOM 83 mg/dL (74-106); SGOT/AST 99 U/L (15-37); SGPT/ALT 129 U/L (13-61); SODIUM 143 mmol/L (136-145); TOT PROT 5.2 g/dl (6.4-8.2)
[2018-04-15 15:59] LABS: POTASSIUM 2.7 mmol/L (3.5-5.1)
[2018-04-15] MEDS ORDERED: MAGNESIUM SULF 50% (8.12 MEQ/2 ML-1 GM VIAL) IVPB ONE (16:15)
--- NOTE | 2018-04-15 16:22 | PROC ---
Procedure Note Procedure: CV line placed under sterile technique. Numerous unsuccessful attempts for IV access attempted with and without Ultrasound guidance. Failed midline insertion by surgical PA secondary to poor venous access options. CXR reviewed and CV line is okay for use. Dr. Christiansen was present throughout the entire procedure for supervision. Central Line Insertion Indication: Poor Venous Access Risks and Benefits Explained: Yes Consent on Chart: Yes Central Line: Triple Lumen Catheter Anesthesia: 1% Lidocaine Sterile Technique: Yes Ultrasound Guided Assistance: Yes Position: Right Internal Jugular Post Insertion: Yes: Bilateral Breath Sounds, Bilateral Chest Expansion, Chest X-Ray Ordered (Reviewed, positioned well, no pneumothorax seen) Sterile Dressing Applied: Yes
[2018-04-15] MEDS: SODIUM CHLORIDE 0.9%/KCL 20 MEQ/1,000 ML INFUS.BAG IV SCH (16:34)
[2018-04-15] MEDS: CIPROFLOXACIN 0.3% EYE DROPS 5 ML BOTTLE OD SCH ×2 (16:34→21:23)
--- NOTE | 2018-04-15 17:24 | PN ---
Physical Exam: SUBJECTIVE: Patient seen and examined at bedside this morning. No acute events overnight. Patient has no new active complaints. OBJECTIVE: GENERAL: The patient is awake, alert, and fully oriented, in no acute distress. HEAD: Normal with no signs of trauma. EYES: PERRLA, EOMI, sclera anicteric, conjunctiva clear. ENT: Ears normal, nares patent, oropharynx clear without exudates, dry mucous membranes. NECK: Trachea midline, full range of motion, supple. Triple lumen noted in the right IJ. LUNGS: Breath sounds equal, clear to auscultation bilaterally. HEART: Regular rate and rhythm, S1, S2 without murmur, rub or gallop. ABDOMEN: Soft, RUQ and epigastric tenderness on palpation, nondistended, normoactive bowel sounds. EXTREMITIES: 2+ pulses, warm, well-perfused, +clubbing, +1 pedal edema L>R, + hand tremor L>R NEUROLOGICAL: Cranial nerves II through XII grossly intact. Normal speech, gait not observed. PSYCH: Normal mood, normal affect. SKIN: Warm, dry, normal turgor, no rashes or lesions noted Vital Signs Period Temp Pulse Resp BP Sys/Mckeon Pulse Ox Last 24 Hr 98.5 F-98.7 F 70-88 20-20 90-146/58-70 97-98 Laboratory Results - last 24 hr 04/14/18 04/14/18 04/15/18 18:00 23:04 06:13 WBC RBC Hgb Hct MCV MCH MCHC RDW Plt Count MPV Absolute Neuts (auto) Neutrophils % Neutrophils % (Manual) Band Neutrophils % Lymphocytes % Lymphocytes % (Manual) Monocytes % Monocytes % (Manual) Eosinophils % Eosinophils % (Manual) Basophils % Basophils % (Manual) Myelocytes % (Man) Promyelocytes % (Man) Blast Cells % (Manual) Nucleated RBC % Metamyelocytes Hypochromia Platelet Estimate Polychromasia Poikilocytosis Anisocytosis Microcytosis Macrocytosis Target Cells Sodium Potassium Chloride Carbon Dioxide Anion Gap BUN Creatinine Creat Clearance w eGFR POC Glucometer 209 157 Random Glucose 352 H* Calcium Phosphorus Magnesium Total Bilirubin Direct Bilirubin AST ALT Alkaline Phosphatase Total Protein Albumin Lipase Vitamin B12 04/15/18 04/15/18 04/15/18 07:45 07:45 07:45 WBC 6.0 RBC 3.45 L Hgb 12.1 Hct 35.7 D MCV 103.5 H MCH 35.0 H MCHC 33.8 RDW 13.8 Plt Count 155 D MPV 9.8 Absolute Neuts (auto) 2.6 Neutrophils % 43.5 D Neutrophils % (Manual) 40.4 L D Band Neutrophils % 4.1 Lymphocytes % 23.3 D Lymphocytes % (Manual) 12.1 Monocytes % 32.3 H D Monocytes % (Manual) 22 H Eosinophils % 0.8 D Eosinophils % (Manual) 1.0 Basophils % 0.1 Basophils % (Manual) 1.0 Myelocytes % (Man) 0 Promyelocytes % (Man) 0 Blast Cells % (Manual) 0 Nucleated RBC % 0 Metamyelocytes 3 H Hypochromia 1+ Platelet Estimate Decreased Polychromasia 0 Poikilocytosis 0 Anisocytosis 0 Microcytosis 0 Macrocytosis 0 Target Cells 1+ Sodium 138 Potassium 3.8 Chloride 96 L Carbon Dioxide 34 H Anion Gap 8 BUN 19 H Creatinine 0.8 Creat Clearance w eGFR > 60 POC Glucometer Random Glucose 108 H Calcium 9.8 Phosphorus 0.8 L* Magnesium 1.5 L Total Bilirubin 2.5 H Direct Bilirubin 1.8 H AST 117 H ALT 171 H Alkaline Phosphatase 212 H Total Protein 6.4 Albumin 2.8 L Lipase 96 Vitamin B12 1999 H 04/15/18 04/15/18 04/15/18 11:31 14:09 16:36 WBC RBC Hgb Hct MCV MCH MCHC RDW Plt Count MPV Absolute Neuts (auto) Neutrophils % Neutrophils % (Manual) Band Neutrophils % Lymphocytes % Lymphocytes % (Manual) Monocytes % Monocytes % (Manual) Eosinophils % Eosinophils % (Manual) Basophils % Basophils % (Manual) Myelocytes % (Man) Promyelocytes % (Man) Blast Cells % (Manual) Nucleated RBC % Metamyelocytes Hypochromia Platelet Estimate Polychromasia Poikilocytosis Anisocytosis Microcytosis Macrocytosis Target Cells Sodium 143 Potassium 2.7 L* Chloride 108 H Carbon Dioxide 29 Anion Gap 6 L BUN 16 Creatinine 0.5 L Creat Clearance w eGFR > 60 POC Glucometer 234 159 Random Glucose 83 Calcium 7.3 L Phosphorus Magnesium Total Bilirubin 1.7 H Direct Bilirubin AST 99 H ALT 129 H Alkaline Phosphatase 165 H Total Protein 5.2 L Albumin 2.2 L Lipase Vitamin B12 Active Medications Generic Name Dose Route Start Last Admin Trade Name Freq PRN Reason Stop Dose Admin Abacavir Sulfate 600 mg 04/15/18 10:00 04/15/18 10:03 Ziagen - PO 600 mg DAILY MARGO Administration Ciprofloxacin 1 drop 04/15/18 14:15 04/15/18 16:34 Ciloxan 0.3% Eye Drops -- OD 1 drop TID MARGO Administration Enoxaparin Sodium 40 mg 04/14/18 10:00 04/15/18 10:03 Lovenox - SQ 40 mg DAILY MARGO Administration Folic Acid 1 mg 04/14/18 10:00 04/15/18 10:03 Folic Acid - PO 1 mg DAILY MARGO Administration Lactated Ringer's 1,000 ml in 1,000 mls @ 100 mls/hr 04/14/18 08:45 04/15/18 09:59 Lactated Ringers Solution IV Not Given ASDIR MARGO Potassium Chloride/Sodium Chloride 20 meq in 1,000 mls @ 100 mls/hr 04/15/18 16:15 04/15/18 16:34 Ns+20 Meq Kcl - IV 100 mls/hr ASDIR MARGO Administration Insulin Aspart 1 vial 04/14/18 07:00 04/15/18 16:37 Novolog Vial Sliding Scale - SQ 2 units ACHS MARGO Administration Protocol Lamivudine 300 mg 04/15/18 10:00 04/15/18 10:03 Epivir - PO 300 mg DAILY MARGO Administration Lorazepam 2 mg 04/14/18 13:56 04/14/18 23:09 Ativan - PO 2 mg Q8H PRN Administration ANXIETY Nystatin 500,000 units 04/14/18 06:00 04/15/18 11:40 Nystatin Oral Suspension - PO 500,000 units Q6HPO MARGO Administration Pantoprazole Sodium 40 mg 04/14/18 10:00 04/15/18 10:03 Protonix - PO 40 mg DAILY MARGO Administration Thiamine HCl 100 mg 04/14/18 10:00 04/15/18 10:03 Vitamin B1 - PO 100 mg DAILY MARGO Administration Imaging: CT ab/pelvis - In comparison to CT exam on 12/03/16, interval focal enlargement of the pancreatic tail is noted with probably contiguous involvement of the adjacent descending colon. This finding is probably on the basis of neoplastic disease although focal pancreatitis or diverticulitis could conceivably be a consideration. The remainder of the abd/pelvis demonstrates no definite interval change. No CT evidence of acute appendicitis. Cholelithiasis. Chronic calcific pancreatitis. Diffuse hepatic steatosis. Bilteral nonobstructing renal calculi. ASSESSMENT/PLAN The patient is a 68 yo m w/ PMH ETOH abuse, HIV, lung resection for infection who comes into the ED c/o epigastric pain and RUQ pain. #RUQ and epigastric pain: likely 2/2 pancreatitis vs pancreatic mass -pt also report pain on palpation at the surgical site where he had lung resection (2016) -Able to tolerate solid diet with no reports of N/V/D/C. -GI (Dr. Alvarado) consulted. Recommendations appreciated. -CA 19-9, Lipase, CEA, AFP pending -CMP done. - hypokalemia, hypomagnesemia, hypophosphatemia -IV fluids given, electrolytes repleted. -Direct bili - 1.8 -B12 - 1998 #Acute transaminitis: AST 117 ALT 171 ALP 212 -May be due to EtOH use vs. Hepatitis -Central line placed today. -Hepatitis panel pending. #ETOH abuse -CIWA 5, last drink was Wednesday morning. -Not in active withdrawal -Thiamine, Folate, MV given. -Monitor and start Ativan protocol if necessary. -Ativan 2mg q8h PRN EtOH withdrawal symptoms. #HIV -patient taking Epzicom (Abacavir/Lamivudine) at home daily. -continue medications -Viral load and CD4 count ordered. #Hyperglycemia -HbA1c, Lipid panel ordered -BGM ACHS -Implement SSI #FEN -IV NS @ 100ml/hr -HypoK, HypoMg, Hypophos -- repleted -fat/sodium controlled/ diabetic diet #Prophylaxis -Heparin 5000 units sq tid #Disposition -admit to med-surg Visit type - Emergency Visit Emergency Visit: Yes ED Registration Date: 04/13/18 Care time: The patient presented to the Emergency Department on the above date and was hospitalized for further evaluation of their emergent condition. - New Patient This patient is new to me today: Yes Date on this admission: 04/15/18 - Critical Care Critical Care patient: No
[2018-04-15 20:34] LABS: ANION GAP 8 MMOL/L (8-16); BLOOD UREA NITROGEN 17 mg/dL (7-18); CALCIUM 9.3 mg/dL (8.5-10.1); CHLORIDE 98 mmol/L (98-107); CO2 30 mmol/L (21-32); CREATININE 0.8 mg/dL (0.55-1.3); GLUCOSE,RANDOM 239 mg/dL (74-106); MAGNESIUM 2.4 mg/dL (1.8-2.4); POTASSIUM 3.7 mmol/L (3.5-5.1); SODIUM 137 mmol/L (136-145)
[2018-04-15] MEDS ORDERED: SODIUM PHOSPHATE - 30 MM in SODIUM CHLORIDE 500 ML IVPB ONE (21:16)
[2018-04-15] MEDS ORDERED: INSULIN (NOVOLOG) ASPART 100 UNITS/ML 10ML VIAL ONE (21:32)
[2018-04-16] MEDS: NYSTATIN 500,000 UNITS/5 ML SUSPENSION PO SCH ×5 (05:27→23:00)
[2018-04-16] MEDS: CIPROFLOXACIN 0.3% EYE DROPS 5 ML BOTTLE OD SCH ×3 (05:27→21:25)
[2018-04-16 06:06] LABS: HEP.C VIRUS AB 9.7 s/co ratio (0.0-0.9)
[2018-04-16 07:43] LABS: HEMATOCRIT 30.9 % (35.4-49); HEMOGLOBIN 10.7 GM/dL (11.7-16.9); MCH 35.7 pg (25.7-33.7); MCHC 34.6 g/dl (32.0-35.9); MEAN CELL VOLUME 103.2 fl (80-96); MEAN PLT VOLUME 9.6 fl (7.5-11.1); PLATELET COUNT 199 K/MM3 (134-434); RDW 14.1 % (11.9-15.9); WHITE BLOOD COUNT 7.1 K/mm3 (4.0-10.0)
[2018-04-16 08:46] LABS: ALBUMIN 2.4 g/dl (3.4-5.0); ALK PHOS 175 U/L (45-117); ANION GAP 7 MMOL/L (8-16); BILIRUBIN,TOTAL 1.8 mg/dL (0.2-1); BLOOD UREA NITROGEN 14 mg/dL (7-18); CALCIUM 7.8 mg/dL (8.5-10.1); CHLORIDE 101 mmol/L (98-107); CO2 32 mmol/L (21-32); CREATININE 0.5 mg/dL (0.55-1.3); GLUCOSE,RANDOM 104 mg/dL (74-106); MAGNESIUM 1.6 mg/dL (1.8-2.4); PHOSPHOROUS 4.7 mg/dL (2.5-4.9); POTASSIUM 3.2 mmol/L (3.5-5.1); SGOT/AST 95 U/L (15-37); SGPT/ALT 132 U/L (13-61); SODIUM 140 mmol/L (136-145); TOT PROT 5.6 g/dl (6.4-8.2)
[2018-04-16] MEDS ORDERED: PT OWN MED DRAWER 7, Y5N ONE ×2 (09:49→11:06)
[2018-04-16] MEDS: ABACAVIR SULFATE 300 MG TABLET PO SCH ×2 (10:06→11:15)
[2018-04-16] MEDS: ENOXAPARIN NA (PORCINE) 40 MG/0.4 ML DISP.SYRIN SQ SCH (10:09)
[2018-04-16] MEDS: PANTOPRAZOLE 40 MG TABLET (FP) PO SCH (10:09)
[2018-04-16] MEDS: THIAMINE HCL 100 MG TABLET (FP) PO SCH (10:09)
[2018-04-16] MEDS: FOLIC ACID 1 MG TABLET (FP) PO SCH (10:09)
--- NOTE | 2018-04-16 10:17 | PN ---
Progress Note (short form) - Note Progress Note: c/o periumbilical pain. only when touched. denies Cp, SOB, fever, chills, N/v/C/ D. tolerating diet Current Medications Generic Name Dose Route Start Last Admin Trade Name Freq PRN Reason Stop Dose Admin Abacavir Sulfate 600 mg 04/15/18 10:00 04/16/18 10:06 Ziagen - PO 600 mg DAILY MARGO Administration Ciprofloxacin 1 drop 04/15/18 14:15 04/16/18 05:27 Ciloxan 0.3% Eye Drops -- OD 1 drop TID MARGO Administration Enoxaparin Sodium 40 mg 04/14/18 10:00 04/16/18 10:09 Lovenox - SQ 40 mg DAILY MARGO Administration Folic Acid 1 mg 04/14/18 10:00 04/16/18 10:09 Folic Acid - PO 1 mg DAILY MARGO Administration Lactated Ringer's 1,000 ml in 1,000 mls @ 100 mls/hr 04/14/18 08:45 04/15/18 09:59 Lactated Ringers Solution IV Not Given ASDIR MARGO Potassium Chloride/Sodium Chloride 20 meq in 1,000 mls @ 100 mls/hr 04/15/18 16:15 04/15/18 16:34 Ns+20 Meq Kcl - IV 100 mls/hr ASDIR MARGO Administration Insulin Aspart 1 vial 04/14/18 07:00 04/15/18 21:51 Novolog Vial Sliding Scale - SQ 8 units ACHS MARGO Administration Protocol Lamivudine 300 mg 04/15/18 10:00 04/15/18 10:03 Epivir - PO 300 mg DAILY MARGO Administration Lorazepam 2 mg 04/14/18 13:56 04/14/18 23:09 Ativan - PO 2 mg Q8H PRN Administration ANXIETY Nystatin 500,000 units 04/14/18 06:00 04/16/18 05:27 Nystatin Oral Suspension - PO 500,000 units Q6HPO MARGO Administration Pantoprazole Sodium 40 mg 04/14/18 10:00 04/16/18 10:09 Protonix - PO 40 mg DAILY MARGO Administration Thiamine HCl 100 mg 04/14/18 10:00 04/16/18 10:09 Vitamin B1 - PO 100 mg DAILY MARGO Administration Last Vital Signs Temp Pulse Resp BP Pulse Ox 98.8 F 76 20 113/70 98 04/16/18 06:00 04/16/18 06:00 04/15/18 22:00 04/16/18 06:00 04/15/18 20:31 General A&Ox3. HEENT icteric, EOMI, minimal erythema to R sclera, some clear watery drainage from the eyes Abdomen periumbilical tenderness RUQ tenderness CBCD WBC 7.1 K/mm3 (4.0-10.0) 04/16/18 05:45 RBC 3.00 M/mm3 (4.00-5.60) L 04/16/18 05:45 Hgb 10.7 GM/dL (11.7-16.9) L 04/16/18 05:45 Hct 30.9 % (35.4-49) L 04/16/18 05:45 MCV 103.2 fl (80-96) H 04/16/18 05:45 MCHC 34.6 g/dl (32.0-35.9) 04/16/18 05:45 RDW 14.1 % (11.9-15.9) 04/16/18 05:45 Plt Count 199 K/MM3 (134-434) D 04/16/18 05:45 MPV 9.6 fl (7.5-11.1) 04/16/18 05:45 CMP Sodium 140 mmol/L (136-145) 04/16/18 05:45 Potassium 3.2 mmol/L (3.5-5.1) L 04/16/18 05:45 Chloride 101 mmol/L (98-107) 04/16/18 05:45 Carbon Dioxide 32 mmol/L (21-32) 04/16/18 05:45 Anion Gap 7 MMOL/L (8-16) L 04/16/18 05:45 BUN 14 mg/dL (7-18) 04/16/18 05:45 Creatinine 0.5 mg/dL (0.55-1.3) L 04/16/18 05:45 Creat Clearance w eGFR > 60 (>60) 04/16/18 05:45 Calcium 7.8 mg/dL (8.5-10.1) L 04/16/18 05:45 Total Bilirubin 1.8 mg/dL (0.2-1) H 04/16/18 05:45 AST 95 U/L (15-37) H 04/16/18 05:45 ALT 132 U/L (13-61) H 04/16/18 05:45 Alkaline Phosphatase 175 U/L (45-117) H 04/16/18 05:45 Total Protein 5.6 g/dl (6.4-8.2) L 04/16/18 05:45 Albumin 2.4 g/dl (3.4-5.0) L 04/16/18 05:45 ASSESSMENT AND PLAN: 68yo M wtih PMH Continuous ETOH dependence DM, HTN, and HIV with recent thoracotomy for lung infection sent from [facility] due to abnormal labs 1. Acute transaminitis-due to HCV which is positive. confirmation test has been sent. will need further testing and treatment. will notify GI about positive result. LFT slowly improving. explained need to f/u with rug scratcher closely going forward and usp risks of untreated HCV including cirrhosis and cancer. GI on board. 2. Pancreatic mass- high concern for malignancy. increased in size from [address] CT. pending CEA, CA 19-9, AFP. Gi consulted 3. B/L conjunctivitis- improved. cont cipro ggts 4. Severe hypophosphatemia- resolved 5. Hypomangesemia- Mg po 6. Moderate hypokalemia- improved. cont KCl in IVF and po 7. Abdominal pain- concern for pancreatitis vs pancreatic mass. pain seems to move daily and not consistent with any disease process. CT was negative for any pathology other than mass which can contribute to pain. tolerating diet. appears to be more chronic from thorcotomy as pt states he has had pain there since then. 8. Continious ETOH depdence- CIWA 0. not in active withdrawals. has not required ativan. not interested in rehab at this time. will seek assistance from AA and outpatient support. stressed importance of abstinence. cont thiamine /folate/MVI. 9. DM- BGM and iss 10. HTN- stable off medication 11. HIV- states he is not compliant with medications but interested in starting medications and follow up. will cont treatment 12. thoracotomy from recent infection- will see if can obtain recent medical records 13. DVT ppx- lovenox Visit type - Emergency Visit Emergency Visit: Yes ED Registration Date: 04/13/18 Care time: The patient presented to the Emergency Department on the above date and was hospitalized for further evaluation of their emergent condition. - New Patient This patient is new to me today: No - Critical Care Critical Care patient: No - Discharge Referral Referred to [facility] No
[2018-04-16] MEDS ORDERED: MAGNESIUM OXIDE 400 MG TABLET (FP) PO ONE (10:18)
[2018-04-16] MEDS ORDERED: POTASSIUM CHLORIDE ORAL LIQUID 20 MEQ/15 ML PO ONE (10:18)
[2018-04-16] MEDS: SODIUM CHLORIDE 0.9%/KCL 20 MEQ/1,000 ML INFUS.BAG IV SCH ×3 (10:18→20:30)
[2018-04-16] MEDS: lamiVUDine 150 MG TABLET PO SCH (11:14)
[2018-04-16] MEDS: INSULIN SLIDING SCALE (NOVOLOG) 1 VIAL SQ SCH ×6 (12:10→21:24)
[2018-04-16] MEDS ORDERED: INSULIN (NOVOLOG) ASPART 100 UNITS/ML 10ML VIAL ONE ×2 (12:10→17:31)
[2018-04-16] MEDS: LACTATED RINGERS SOLUTION 1,000 ML/1,000 ML INFUS.BAG IV SCH (13:14)
[2018-04-16] MEDS: MAG HYDROX/AL HYDROX/SIMETH 30 ML UNIT-DOSE CUP PO PRN ×2 (14:05→21:25)
[2018-04-17] MEDS: INSULIN SLIDING SCALE (NOVOLOG) 1 VIAL SQ SCH ×2 (06:09→11:16)
[2018-04-17] MEDS: CIPROFLOXACIN 0.3% EYE DROPS 5 ML BOTTLE OD SCH ×2 (06:09→13:06)
[2018-04-17] MEDS: NYSTATIN 500,000 UNITS/5 ML SUSPENSION PO SCH ×2 (06:09→11:17)
[2018-04-17] MEDS: SODIUM CHLORIDE 0.9%/KCL 20 MEQ/1,000 ML INFUS.BAG IV SCH (06:44)
[2018-04-17 08:03] LABS: HEMATOCRIT 28.7 % (35.4-49); HEMOGLOBIN 10.4 GM/dL (11.7-16.9); MCH 38.9 pg (25.7-33.7); MCHC 36.3 g/dl (32.0-35.9); MEAN CELL VOLUME 107.2 fl (80-96); MEAN PLT VOLUME 8.9 fl (7.5-11.1); PLATELET COUNT 245 K/MM3 (134-434); RBC 2.68 M/mm3 (4.00-5.60); WHITE BLOOD COUNT 9.5 K/mm3 (4.0-10.0)
[2018-04-17 08:36] LABS: BLOOD UREA NITROGEN 8 mg/dL (7-18); CHLORIDE 104 mmol/L (98-107); CREATININE 0.5 mg/dL (0.55-1.3); GLUCOSE,RANDOM 150 mg/dL (74-106); POTASSIUM 4.1 mmol/L (3.5-5.1); SODIUM 139 mmol/L (136-145)
[2018-04-17 08:37] LABS: ANION GAP 8 MMOL/L (8-16); CALCIUM 8.3 mg/dL (8.5-10.1); CO2 27 mmol/L (21-32); MAGNESIUM 1.1 mg/dL (1.8-2.4)
[2018-04-17] MEDS ORDERED: MAGNESIUM OXIDE 400 MG TABLET (FP) PO ONE (09:19)
[2018-04-17] MEDS ORDERED: NAPH,MB-DB/K PH,MBDB POWDER PACKET PO ONE (09:21)
[2018-04-17] MEDS ORDERED: PT OWN MED DRAWER 7, Y5N ONE ×2 (09:39→11:37)
[2018-04-17] MEDS: ENOXAPARIN NA (PORCINE) 40 MG/0.4 ML DISP.SYRIN SQ SCH (09:44)
[2018-04-17] MEDS: FOLIC ACID 1 MG TABLET (FP) PO SCH (09:44)
[2018-04-17] MEDS: THIAMINE HCL 100 MG TABLET (FP) PO SCH (09:46)
[2018-04-17] MEDS: lamiVUDine 150 MG TABLET PO SCH (09:46)
[2018-04-17] MEDS: ABACAVIR SULFATE 300 MG TABLET PO SCH (09:46)
--- NOTE | 2018-04-17 10:15 | PN ---
Teaching Attending Note Name of Resident: Angella Drummond ATTENDING PHYSICIAN STATEMENT I saw and evaluated the patient. I reviewed the resident's note and discussed the case with the resident. I agree with the resident's findings and plan as documented. SUBJECTIVE:states abdominal pain has resolved. tolerating diet. denies Cp, SOB, fever, chills, N/V/C/D. had 2 BM yesterday OBJECTIVE: Last Vital Signs Temp Pulse Resp BP Pulse Ox 98.2 F 83 16 126/86 97 04/17/18 07:51 04/17/18 07:51 04/17/18 07:51 04/17/18 07:51 04/17/18 08:54 General NAD HEENT no sclera erythema, no B/L drainage noted ASSESSMENT AND PLAN: 68yo M wtih PMH Continuous ETOH dependence DM, HTN, and HIV with recent thoracotomy for lung infection sent from [facility] due to abnormal labs 1. Acute transaminitis-due to HCV which is positive. confirmation test has been sent. will need to f/u with PMD ( Dr Garcia in [place]). for monitor of LFT and further workup of HCV results. advised to avoid ETOH use. will need GI f/u as outpatient 2. Pancreatic mass- high concern for malignancy. increased in size from 2017 CT. pending CEA, CA 19-9, AFP. Gi consulted 3. B/L conjunctivitis- improved. cont cipro ggts x5 days total 4. Severe hypophosphatemia-neutraphos po 5. Hypomangesemia- Mg po, can give supplsements as outpatient x1 week 6. Moderate hypokalemia- resolved 7. Abdominal pain- concern for pancreatitis vs pancreatic mass. now pain is resolved. 8. Continious ETOH depdence- CIWA 0. not in active withdrawals. not interested in rehab at this time. will seek assistance from AA and outpatient support. stressed importance of abstinence. cont thiamine/folate/MVI. 9. DM- BGM and iss 10. HTN- stable off medication 11. HIV- states he is not compliant with medications but interested in starting medications and follow up. will cont treatment 12. thoracotomy from recent infection- will see if can obtain recent medical records 13. DVT ppx- lovenox 14. d/c home
--- NOTE | 2018-04-17 15:33 | DS ---
Physical Exam: SUBJECTIVE: Patient seen and examined at bedside this morning. No acute events overnight. Patient has no new complaints. OBJECTIVE: Vital Signs Period Temp Pulse Resp BP Sys/Mckeon Pulse Ox Last 24 Hr 98.2 F-98.6 F 83-95 16-20 123-137/70-86 97 PHYSICAL EXAM GENERAL: The patient is awake, alert, and fully oriented, in no acute distress. HEAD: Normal with no signs of trauma. EYES: PERRLA, EOMI, sclera anicteric, conjunctiva clear. ENT: Ears normal, nares patent, oropharynx clear without exudates, moist mucous membranes. NECK: Trachea midline, full range of motion, supple. LUNGS: Breath sounds equal, clear to auscultation bilaterally. HEART: Regular rate and rhythm, S1, S2 without murmur, rub or gallop. ABDOMEN: Soft, nontender, nondistended, normoactive bowel sounds. EXTREMITIES: 2+ pulses, warm, well-perfused, no edema. NEUROLOGICAL: Cranial nerves II through XII grossly intact. Normal speech, gait not observed. PSYCH: Normal mood, normal affect. SKIN: Warm, dry, normal turgor, no rashes or lesions noted. LABS Laboratory Results - last 24 hr 04/15/18 04/16/18 04/16/18 07:45 16:38 21:23 WBC RBC Hgb Hct 35.0 L MCV MCH MCHC RDW Plt Count MPV Sodium Potassium Chloride Carbon Dioxide Anion Gap BUN Creatinine Creat Clearance w eGFR POC Glucometer 180 190 Random Glucose Calcium Phosphorus Magnesium Folate 1090 Folate Hemolysate 381.4 04/17/18 04/17/18 04/17/18 05:58 07:00 07:00 WBC 9.5 RBC 2.68 L Hgb 10.4 L Hct 28.7 L MCV 107.2 H MCH 38.9 H MCHC 36.3 H RDW 14.0 Plt Count 245 D MPV 8.9 Sodium 139 Potassium 4.1 Chloride 104 Carbon Dioxide 27 Anion Gap 8 BUN 8 Creatinine 0.5 L Creat Clearance w eGFR > 60 POC Glucometer 142 Random Glucose 150 H Calcium 8.3 L Phosphorus 2.0 L Magnesium 1.1 L Folate Folate Hemolysate 04/17/18 11:15 WBC RBC Hgb Hct MCV MCH MCHC RDW Plt Count MPV Sodium Potassium Chloride Carbon Dioxide Anion Gap BUN Creatinine Creat Clearance w eGFR POC Glucometer 209 Random Glucose Calcium Phosphorus Magnesium Folate Folate Hemolysate Imaging: CT ab/pelvis - In comparison to CT exam on 12/03/16, interval focal enlargement of the pancreatic tail is noted with probably contiguous involvement of the adjacent descending colon. This finding is probably on the basis of neoplastic disease although focal pancreatitis or diverticulitis could conceivably be a consideration. The remainder of the abd/pelvis demonstrates no definite interval change. No CT evidence of acute appendicitis. Cholelithiasis. Chronic calcific pancreatitis. Diffuse hepatic steatosis. Bilateral nonobstructing renal calculi. HOSPITAL COURSE: Date of Admission:04/13/18 Date of Discharge: 04/17/18 Patient is a 68 year old male with past medical history of ETOH abuse, HIV, lung resection for infection who comes into the ED c/o epigastric pain and RUQ pain. CT scan of the abdomen and pelvis revealed focal enlargement of the pancreatic tail - to consider pancreatitis vs pancreatic mass. Patient was also noted to have acute transaminitis. GI consulted. Hepatitis serology, CA 19-9, Lipase, CEA, AFP ordered. Central line was placed after multiple unsuccessful attempts of peripheral IV access. Patient was positive for HCV, confirmatory tests were sent. IV fluids were given. Patient continued to improve. Prior to discharge, central line was removed. Patient was discharged with instructions to follow-up with primary care doctor and GI doctor for further work-up. Minutes to complete discharge: 45 Discharge Summary Reason For Visit: EDEMA OF LOWER EXTREMITY/HISTORY OF HEART VALVE Current Active Problems Chronic alcoholism (Chronic) Alcohol dependence with uncomplicated withdrawal (Chronic) Acute pancreatitis (Acute) Transaminitis (Acute) Condition: Improved - Instructions Diet, Activity, Other Instructions: You were admitted because you had severe belly pain. CT scan was done which showed a mass on your pancreas. This needs to be further worked-up. Please follow up with a GI doctor. If you do not have one, please call Dr. Be Boyle's office at [phone] to schedule an appointment. You were also found to have Hepatitis C virus and we have sent a confirmatory test. Your liver function test is also high, which means your liver is injured or inflammed. Please follow up with your primary care doctor (Dr. Jose Llanes) to monitor your liver function and your Hepatitis C further worked-up. Your magnesium and phosphorus were also noted to be low. You were given supplements that would help increase these electrolytes. Continue taking Magnesium 400mg once daily for 1 week. You were also diagnosed with an eye infection and was started on antibiotic drops. Please continue applying the Ciprofloxacin drops to both eyes, three times a day for 3 more days. You had elevated blood sugar while you were here. It is important that your sugar is controlled as high blood sugar can cause stroke, heart disease, kidney problems, and blurred vision. Please follow-up with your primary care doctor (Dr. Llanes) for further work- up of your blood sugar. Physical therapy also evaluated you and think you would benefit more with using a walker. We encourage you to use it to prevent any injuries form falling down. Continue taking your medications as prescribed. We strongly encourage you to avoid drinking alcohol. This is causing injury to your liver and pancreas which is probably causing your belly pain. Call 911 or go to the ED if with worsening fever, chills, belly pains, shortness of breath or any new concerns noted. Referrals: Magan Boyle DO [Staff Physician] - Disposition: HOME - Home Medications Comprehensive Discharge Medication List: Ambulatory Orders Folic Acid - 1 mg PO DAILY #30 tablet 12/08/16 Pantoprazole Sodium [Protonix -] 40 mg PO DAILY #30 cap 12/08/16 Thiamine HCl [Vitamin B1 -] 100 mg PO DAILY #30 tablet 12/08/16 Abacavir Sulfate/Lamivudine [Epzicom Tablet] 1 tablet PO DAILY 04/14/18 Ciprofloxacin 0.3% Eye Drops [Ciloxan 0.3% Eye Drops --] 1 drop OU TID 3 Days # 1 drops 04/17/18 Magnesium Oxide [Mag-Ox -] 400 mg PO DAILY #7 tablet 04/17/18 Walker [Ultra-Light Rollator] 1 each MC DAILY #1 each 04/17/18 This patient is new to me today: Yes Date on this admission: 04/19/18 Emergency Visit: Yes ED Registration Date: 04/13/18 Care time: The patient presented to the Emergency Department on the above date and was hospitalized for further evaluation of their emergent condition. Critical Care patient: No - Discharge Referral Referred to [facility] Med P.C.: No
[2018-04-17 15:35] VITALS: BP 115/72; PULSE 86; TEMP 99.4
[2018-04-19 00:07] LABS: CARCINOEMBRYONIC ANTIGEN 7.4 ng/mL (0.0-4.7)
== END 2018-04-17 16:00 | disposition home or self-care (01) | DRG 441 ==
LOC: JER 14:16 → J6S 21:23
PROVIDERS: ADMIT Internal Medicine; ATTEND Internal Medicine
PROC: HZ2ZZZZ Detoxification Services for Substance Abuse Treatment (ICD-10-PCS; 2018-04-14)
PROC: 05HM33Z Insertion of Infusion Device into Right Internal Jugular Vein, Percutaneous Approach (ICD-10-PCS; principal; 2018-04-15)
DX: B19.20 Unspecified viral hepatitis C without hepatic coma (principal); K85.90 Acute pancreatitis without necrosis or infection, unspecified; B37.0 Candidal stomatitis; F10.230 Alcohol dependence with withdrawal, uncomplicated; Z21 Asymptomatic human immunodeficiency virus [HIV] infection status; K29.20 Alcoholic gastritis without bleeding; E87.6 Hypokalemia; I10 Essential (primary) hypertension; E83.42 Hypomagnesemia; R19.09 Other intra-abdominal and pelvic swelling, mass and lump; K21.9 Gastro-esophageal reflux disease without esophagitis; R74.0 Nonspecific elevation of levels of transaminase and lactic acid dehydrogenase [LDH]; E83.39 Other disorders of phosphorus metabolism; E11.9 Type 2 diabetes mellitus without complications; D53.9 Nutritional anemia, unspecified; K76.0 Fatty (change of) liver, not elsewhere classified
CPT/HCPCS: 36415; 71045-TC-FY; 74177-TC; 76705-TC; 80048; 80053; 80074; 82105; 82248; 82378; 82607; 82747; 82947; 82962; 83690; 83735; 84100; 85014; 85025; 85027; 85610; 86301; 93005; 93010; 97116-GP; 97161-GP; 99285-25; J7030

== ENCOUNTER 2018-07-12 13:19 | Inpatient (IN) | payer OTHER ==
[2018-07-12 14:22] VITALS: BMI 21.6
--- NOTE | 2018-07-12 15:14 | HP ---
CIWA Score Nausea/Vomitin-Mild Nausea/No Vomiting Muscle Tremors: 4-Moderate,w/Arms Extend Anxiety: 4-Mod. Anxious/Guarded Agitation: 4-Moderately Restless Paroxysmal Sweats: 3 Orientation: 0-Oriented Tacttile Disturbances: 0-None Auditory Disturbances: 0-None Visual Disturbances: 0-None Headache: 0-None Present CIWA-Ar Total Score: 16 - Admission Criteria OASAS Guidelines: Admission for Medically Managed Detox: Requires at least one of the followin. CIWA greater than 12 2. Seizures within the past 24 hours 3. Delirium tremens within the past 24 hours 4. Hallucinations within the past 24 hours 5. Acute intervention needed for co occurring medical disorder 6. Acute intervention needed for co occurring psychiatric disorder 7. Severe withdrawal that cannot be handled at a lower level of care (continued vomiting, continued diarrhea, abnormal vital signs) requiring intravenous medication and/or fluids 8. Admission ROS S - HPI Chief Complaint: I need detox to get clean. Allergies/Adverse Reactions: Allergies Allergy/AdvReac Type Severity Reaction Status Date / Time No Known Allergies Allergy Verified 04/13/18 14:29 History of Present Illness: pt is a 68yr old male with a long history of alcohol dependence seeking detox for treatment. Exam Limitations: Intoxication - Ebola screening Have you traveled outside of the country in the last 21 days: No Have you had contact with anyone from an Ebola affected area: No Have you been sick,other than usual withdrawal symptoms: No Do you have a fever: No - Review of Systems Constitutional: Chills, Diaphoresis, Loss of Appetite, Night Sweats, Changes in sleep, Unintentional Wgt. Loss EENT: reports: No Symptoms Reported, Hearing Loss (left ear [place]) Respiratory: reports: No Symptoms reported Cardiac: reports: No Symptoms Reported GI: reports: Diarrhea, Nausea, Poor Appetite, Poor Fluid Intake, Indigestion : reports: No Symptoms Reported Musculoskeletal: reports: Back Pain Integumentary: reports: Dryness, Flushing Neuro: reports: Tingling, Tremors Endocrine: reports: Excessive Sweating, Flushing, Intolerance to Cold, Intolerance to Heat Hematology: reports: No Symptoms Reported Psychiatric: reports: Judgement Intact, Mood/Affect Appropiate, Orientated x3, Agitated, Anxious Other Systems: Reviewed and Negative Patient History - Patient Medical History Hx Anemia: No Hx Asthma: No Hx Chronic Obstructive Pulmonary Disease (COPD): No Hx Cancer: No Hx Cardiac Disorders: No Hx Congestive Heart Failure: No Hx Hypertension: Yes (On meds.) Hx Hypercholesterolemia: No Hx Pacemaker: No HX Cerebrovascular Accident: No Hx Seizures: No Hx Dementia: No Hx Diabetes: No Hx Gastrointestinal Disorders: Yes (GERD) Hx Liver Disease: No Hx Genitourinary Disorders: No Hx Sexually Transmitted Disorders: No Hx Renal Disease (ESRD): No Hx Thyroid Disease: No Hx Human Immunodeficiency Virus (HIV): Yes (HIV pt is on epzicom ) Hx Hepatitis C: No (Hep C dx 05/2018 at [facility]) Hx Depression: No Hx Suicide Attempt: No Hx Bipolar Disorder: No Hx Schizophrenia: No - Patient Surgical History Past Surgical History: Yes Hx Neurologic Surgery: No Hx Cataract Extraction: No Hx Cardiac Surgery: No Hx Lung Surgery: Yes (2016 (Removal of portion of both Rt Lung and Kidney due to Lung infection.) Hx Breast Surgery: No Hx Breast Biopsy: No Hx Abdominal Surgery: No Hx Appendectomy: No Hx Cholecystectomy: No Hx Genitourinary Surgery: No Hx Section: No Hx Orthopedic Surgery: No Hx Hysterectomy: No Other Surgical History: DENIES. Anesthesia Reaction: No - PPD History Previous Implant?: Yes Documented Results: Negative w/proof Date: 08/22/17 Results: NEGATIVE PPD to be Administered?: No - Reproductive History Patient is a Female of Child Bearing Age (11 -55 yrs old): No - Smoking Cessation Smoking history: Unknown if ever smoked Have you smoked in the past 12 months: No Aproximately how many cigarettes per day: 0 If you are a former smoker, when did you quit?: 1998. Cigars Per Day: 0 Hx Chewing Tobacco Use: No Initiated information on smoking cessation: No - Substance & Tx. History Hx Alcohol Use: Yes Substance Use Type: Alcohol Hx Substance Use Treatment: Yes (last detox 05/2018 [facility]) - Substances Abused Alcohol Route: Oral Frequency: Daily Amount used: 2 pint vodka Age of first use: 22 Date of Last Use: 07/12/18 Family Disease History - Family Disease History Family Disease History: CA: Mother (Breast Ca, .), Other: Father ( Alcohol; .) Admission Physical Exam [facility] - Vital Signs Vital Signs: Vital Signs - 24 hr 07/12/18 14:20 Temperature 98.1 F Pulse Rate 120 H Respiratory 18 Rate Blood Pressure 125/83 - Physical General Appearance: Yes: Disheveled, Mild Distress, Irritable, Anxious HEENTM: Yes: Hearing grossly Normal, Normal Voice Respiratory: Yes: Lungs Clear, Normal Breath Sounds, No Respiratory Distress Neck: Yes: No masses,lesions,Nodules Breast: Yes: Within Normal Limits Cardiology: Yes: Regular Rhythm, Regular Rate, S1, S2 Abdominal: Yes: Normal Bowel Sounds, Non Tender, Soft Genitourinary: Yes: Within Normal Limits Back: Yes: Normal Inspection Musculoskeletal: Yes: Gait Steady Extremities: Yes: Normal Capillary Refill, Normal Inspection, Non-Tender, Tremors Neurological: Yes: Fully Oriented, Alert, Normal Response Integumentary: Yes: Normal Color, Dry, Other (dry flaky skin on face) Lymphatic: Yes: Within Normal Limits - Diagnostic (1) Alcohol dependence with uncomplicated withdrawal Current Visit: Yes Status: Chronic (2) GERD (gastroesophageal reflux disease) Current Visit: Yes Status: Chronic Qualifiers: Esophagitis presence: without esophagitis Qualified Code(s): K21.9 - Gastro -esophageal reflux disease without esophagitis (3) Human immunodeficiency virus infection Current Visit: Yes Status: Chronic (4) Hypertension Current Visit: Yes Status: Chronic Qualifiers: Hypertension type: essential hypertension (5) Dry skin dermatitis Current Visit: Yes Status: Chronic Cleared for Admission [facility] - Detox or Rehab [facility] Level of Care: Medically Managed Detox Regimen/Protocol: Librium [facility] Breath Alcohol Content Breath Alcohol Content: 0.293 Urine Drug Screen - Results Drug Screen Negative: No Urine Drug Screen Results: BZO-Benzodiazepines
[2018-07-12] MEDS ORDERED: MAGNESIUM HYDROX 2400MG/30ML ORAL SUSPENSION 30 ML CUP PO PRN (15:24)
[2018-07-12] MEDS ORDERED: MENTHOL/PHENOL 1 EACH UD MM PRN (15:24)
[2018-07-12] MEDS ORDERED: chlordiazePOXIDE HCL 25 MG CAPSULE PO ONE (15:24)
[2018-07-12] MEDS ORDERED: guaiFENesin/D-METHORPHAN HB 10 ML UNIT-DOSE CUPS PO PRN (15:24)
[2018-07-12] MEDS ORDERED: IBUPROFEN 400 MG TABLET (FP) PO PRN (15:24)
[2018-07-12] MEDS ORDERED: ACETAMINOPHEN 325 MG TABLET (FP) PO PRN (15:24)
[2018-07-12] MEDS ORDERED: MAG HYDROX/AL HYDROX/SIMETH 30 ML UNIT-DOSE CUP PO PRN (15:24)
[2018-07-12] MEDS ORDERED: LOPERAMIDE HCL 2 MG CAPSULE PO PRN (15:24)
[2018-07-12] MEDS ORDERED: MAGNESIUM CITRATE 300 ML BOTTLE PO PRN (15:24)
[2018-07-12] MEDS ORDERED: P-EPHED 60MG/TRIPROLIDI 2.5MG TABLET PO PRN (15:24)
[2018-07-12] MEDS: chlordiazePOXIDE HCL 25 MG CAPSULE PO SCH ×2 (18:31→22:05)
[2018-07-12] MEDS: THIAMINE HCL 100 MG TABLET (FP) PO SCH (22:05)
[2018-07-12] MEDS: MELATONIN 5 MG TABLETS PO PRN (22:40)
[2018-07-13] MEDS: chlordiazePOXIDE HCL 25 MG CAPSULE PO SCH ×4 (05:40→22:04)
[2018-07-13] MEDS: chlordiazePOXIDE HCL 25 MG CAPSULE PO PRN (09:18)
[2018-07-13] MEDS: PANTOPRAZOLE 40 MG TABLET (FP) PO SCH (10:00)
[2018-07-13] MEDS ORDERED: PATIENT'S OWN MEDICATION (NON-FORMULARY) (Abacavir Sulfate/Lamivudine [Epzicom Tablet] 1 T PO SCH (10:00)
[2018-07-13] MEDS: SELENIUM SULFIDE 2.5% LOTION 4 OZ. TP SCH (10:00)
[2018-07-13] MEDS: ABACAVIR SULFATE 300 MG TABLET PO SCH (10:00)
[2018-07-13] MEDS: PRENATAL VITAMINS W/ FOLIC ACID TABLET (FP) PO SCH (10:00)
[2018-07-13 11:05] LABS: HEMATOCRIT 38.4 % (35.4-49); HEMOGLOBIN 13.7 GM/dL (11.7-16.9); MCH 36.7 pg (25.7-33.7); MCHC 35.8 g/dl (32.0-35.9); MEAN CELL VOLUME 102.6 fl (80-96); RBC 3.74 M/mm3 (4.00-5.60); RDW 12.8 % (11.9-15.9); WHITE BLOOD COUNT 5.2 K/mm3 (4.0-10.0)
[2018-07-13 11:17] LABS: ALBUMIN 4.1 g/dl (3.4-5.0); ALK PHOS 134 U/L (45-117); ANION GAP 22 MMOL/L (8-16); BILIRUBIN,TOTAL 0.8 mg/dL (0.2-1); BLOOD UREA NITROGEN 22 mg/dL (7-18); CHLORIDE 85 mmol/L (98-107); CO2 21 mmol/L (21-32); CREATININE 1.3 mg/dL (0.55-1.3); GLUCOSE,RANDOM 176 mg/dL (74-106); POTASSIUM 4.1 mmol/L (3.5-5.1); SGOT/AST 233 U/L (15-37); SGPT/ALT 156 U/L (13-61); SODIUM 128 mmol/L (136-145); TOT PROT 8.7 g/dl (6.4-8.2)
--- NOTE | 2018-07-13 11:24 | PN ---
S CIWA - CIWA Score Nausea/Vomitin-No Nausea/No Vomiting Muscle Tremors: 2 Anxiety: 4-Mod. Anxious/Guarded Agitation: 4-Moderately Restless Paroxysmal Sweats: No Perspiration Orientation: 0-Oriented Tacttile Disturbances: 0-None Auditory Disturbances: 0-None Visual Disturbances: 0-None Headache: 0-None Present CIWA-Ar Total Score: 10 BHS Progress Note (SOAP) Subjective: PATIENT ANXIOUS/GUARDED. DID NOT SPEAK TO PROVIDER. COVERED SELF WITH BLANKET, MILD CHILLS/SHAKES. Objective: 07/13/18 11:22 Vital Signs Temperature 98.4 F 07/13/18 09:07 Pulse Rate 110 H 07/13/18 10:30 Respiratory Rate 18 07/13/18 10:30 Blood Pressure 119/86 07/13/18 09:07 O2 Sat by Pulse Oximetry (%) Laboratory Tests 07/13/18 07/13/18 05:45 05:45 WBC 5.2 RBC 3.74 L Hgb 13.7 Hct 38.4 D MCV 102.6 H MCH 36.7 H MCHC 35.8 RDW 12.8 Plt Count 59 L D MPV 11.8 H D Sodium 128 L Potassium 4.1 Chloride 85 L Carbon Dioxide 21 Anion Gap 22 H BUN 22 H Creatinine 1.3 Creat Clearance w eGFR 55.23 Random Glucose 176 H Calcium 9.0 Total Bilirubin 0.8 AST 233 H ALT 156 H Alkaline Phosphatase 134 H Total Protein 8.7 H Albumin 4.1 PE: ANXIOUS AND IRRITABLE IGNORED PROVIDER +TREMORS ALERT AND ORIENTED X 3 Assessment: 07/13/18 11:23 WITHDRAWAL SX Plan: DETOX CONTINUED ENCOURAGE ORAL FLUIDS WILL CHECK AMMONIA LEVEL AND REPEAT CMP CONTINUE TO MONITOR CLINICALLY
[2018-07-13] MEDS: THIAMINE HCL 100 MG TABLET (FP) PO SCH (22:03)
[2018-07-13] MEDS: MELATONIN 5 MG TABLETS PO PRN (22:04)
[2018-07-14] MEDS: chlordiazePOXIDE HCL 25 MG CAPSULE PO PRN (01:36)
[2018-07-14] MEDS: chlordiazePOXIDE HCL 25 MG CAPSULE PO SCH ×2 (05:38→10:26)
[2018-07-14] MEDS: PRENATAL VITAMINS W/ FOLIC ACID TABLET (FP) PO SCH (10:25)
[2018-07-14] MEDS: SELENIUM SULFIDE 2.5% LOTION 4 OZ. TP SCH (10:26)
[2018-07-14 10:37] LABS: ALBUMIN 3.4 g/dl (3.4-5.0); ALK PHOS 99 U/L (45-117); ANION GAP 8 MMOL/L (8-16); BILIRUBIN,TOTAL 0.6 mg/dL (0.2-1); BLOOD UREA NITROGEN 19 mg/dL (7-18); CALCIUM 9.7 mg/dL (8.5-10.1); CHLORIDE 91 mmol/L (98-107); CO2 30 mmol/L (21-32); CREATININE 1.1 mg/dL (0.55-1.3); GLUCOSE,RANDOM 274 mg/dL (74-106); POTASSIUM 3.4 mmol/L (3.5-5.1); SGOT/AST 98 U/L (15-37); SGPT/ALT 89 U/L (13-61); SODIUM 129 mmol/L (136-145); TOT PROT 6.9 g/dl (6.4-8.2)
--- NOTE | 2018-07-14 13:42 | PN ---
S CIWA - CIWA Score Nausea/Vomitin-No Nausea/No Vomiting Muscle Tremors: None Anxiety: 3 Agitation: 3 Paroxysmal Sweats: No Perspiration Orientation: 0-Oriented Tacttile Disturbances: 0-None Auditory Disturbances: 0-None Visual Disturbances: 0-None Headache: 0-None Present CIWA-Ar Total Score: 6 BHS Progress Note (SOAP) Subjective: PATIENT C/O FEELING TIRED, ANXIOUS/IRRITABLE. Objective: 07/14/18 13:39 Vital Signs Temperature 98.4 F 07/14/18 09:09 Pulse Rate 115 H 07/14/18 09:09 Respiratory Rate 18 07/14/18 09:09 Blood Pressure 126/85 07/14/18 09:09 O2 Sat by Pulse Oximetry (%) Laboratory Tests 07/13/18 07/13/18 07/13/18 05:45 05:45 05:45 WBC 5.2 RBC 3.74 L Hgb 13.7 Hct 38.4 D MCV 102.6 H MCH 36.7 H MCHC 35.8 RDW 12.8 Plt Count MPV Platelet Comment Mod plt clumping Sodium 128 L Potassium 4.1 Chloride 85 L Carbon Dioxide 21 Anion Gap 22 H BUN 22 H Creatinine 1.3 Creat Clearance w eGFR 55.23 Random Glucose 176 H Calcium 9.0 Total Bilirubin 0.8 AST 233 H ALT 156 H Alkaline Phosphatase 134 H Ammonia Total Protein 8.7 H Albumin 4.1 RPR Titer Nonreactive 07/14/18 07/14/18 07:30 07:30 WBC RBC Hgb Hct MCV MCH MCHC RDW Plt Count MPV Platelet Comment Sodium 129 L Potassium 3.4 L Chloride 91 L Carbon Dioxide 30 Anion Gap 8 BUN 19 H Creatinine 1.1 Creat Clearance w eGFR > 60 Random Glucose 274 H Calcium 9.7 Total Bilirubin 0.6 AST 98 H ALT 89 H Alkaline Phosphatase 99 Ammonia 51.90 H Total Protein 6.9 Albumin 3.4 RPR Titer PE: ALERT AND ORIENTED X 3 SKIN WARM AND DRY EXT FULL ROM, AMB AD EDGARD, NO TREMORS +AGITATION Assessment: 07/14/18 13:40 WITHDRAWAL SX ELEVATED AMMONIA LEVEL HYPONATREMIA/HYPOKALEMIA Plan: CONTINUE DETOX PATIENT ADVISED TO LIMIT FLUID INTAKE DUE TO LOW NA LEVELS KDUR 20 MEQ BID X 2 DOSES ORDERED LACTULOSE 20GM TID REPEAT BMP AND AMMONIA LEVEL IN AM
[2018-07-14] MEDS: ABACAVIR SULFATE 300 MG TABLET PO SCH (14:47)
[2018-07-14] MEDS: PANTOPRAZOLE 40 MG TABLET (FP) PO SCH (14:47)
[2018-07-14] MEDS: LACTULOSE 20 GM/30 ML UDC (FOR ORAL USE ONLY) PO SCH ×2 (15:09→22:03)
[2018-07-14] MEDS: chlordiazePOXIDE 5 MG CAPSULE PO SCH ×2 (17:52→22:03)
[2018-07-14] MEDS: POTASSIUM CHLORIDE TABS 20 MEQ TABLET.ER (FP) PO SCH (22:03)
[2018-07-14] MEDS: THIAMINE HCL 100 MG TABLET (FP) PO SCH (22:03)
[2018-07-14] MEDS: MELATONIN 5 MG TABLETS PO PRN (22:08)
[2018-07-15] MEDS: chlordiazePOXIDE 5 MG CAPSULE PO SCH ×2 (05:50→10:03)
[2018-07-15] MEDS: LACTULOSE 20 GM/30 ML UDC (FOR ORAL USE ONLY) PO SCH ×3 (05:50→22:12)
[2018-07-15] MEDS: ABACAVIR SULFATE 300 MG TABLET PO SCH (10:03)
[2018-07-15] MEDS: PANTOPRAZOLE 40 MG TABLET (FP) PO SCH (10:03)
[2018-07-15] MEDS: PRENATAL VITAMINS W/ FOLIC ACID TABLET (FP) PO SCH (10:04)
[2018-07-15] MEDS: SELENIUM SULFIDE 2.5% LOTION 4 OZ. TP SCH (10:04)
[2018-07-15] MEDS: POTASSIUM CHLORIDE TABS 20 MEQ TABLET.ER (FP) PO SCH (10:04)
--- NOTE | 2018-07-15 10:37 | PN ---
[facility] Progress Note Note: Vital Signs Temperature 98.3 F 07/15/18 09:44 Pulse Rate 113 H 07/15/18 09:44 Respiratory Rate 16 07/15/18 09:44 Blood Pressure 108/80 07/15/18 09:44 O2 Sat by Pulse Oximetry (%) PATIENT EVALUATED AT BEDSIDE. PATIENT SLEEPING AND DID NOT WANT TO BE INTERRUPTED. LABS DRAWN AND RESULTS PENDING. PE: ALERT AND ORIENTED X 3 SKIN WARM AND DRY EXT FULL ROM AMB AD EDGARD IRRITABLE A/P: WITHDRAWAL SX CONTINUE DETOX FOLLOW UP LABS WHEN AVAILABLE PATIENT REQUEST TO SLEEP AND BE LEFT ALONE HONORED
[2018-07-15 10:41] LABS: ANION GAP 8 MMOL/L (8-16); BLOOD UREA NITROGEN 16 mg/dL (7-18); CALCIUM 10.5 mg/dL (8.5-10.1); CHLORIDE 94 mmol/L (98-107); CO2 32 mmol/L (21-32); CREATININE 0.8 mg/dL (0.55-1.3); GLUCOSE,RANDOM 179 mg/dL (74-106); POTASSIUM 3.8 mmol/L (3.5-5.1); SODIUM 133 mmol/L (136-145)
[2018-07-15 10:46] LABS: BASO % 0.6 % (0-2.0); EOS % 1.3 % (0-4.5); HEMATOCRIT 35.7 % (35.4-49); HEMOGLOBIN 11.7 GM/dL (11.7-16.9); LYMPH % 37.6 % (8-40); MCH 33.5 pg (25.7-33.7); MCHC 32.9 g/dl (32.0-35.9); MEAN CELL VOLUME 101.8 fl (80-96); MEAN PLT VOLUME 10.8 fl (7.5-11.1); MONO % 21.5 % (3.8-10.2); PLATELET COUNT 72 K/MM3 (134-434); RDW 12.9 % (11.9-15.9); WHITE BLOOD COUNT 3.4 K/mm3 (4.0-10.0)
--- NOTE | 2018-07-15 13:17 | PN ---
[facility] Progress Note Note: Laboratory Tests 07/13/18 07/13/18 07/13/18 05:45 05:45 05:45 WBC 5.2 RBC 3.74 L Hgb 13.7 Hct 38.4 D MCV 102.6 H MCH 36.7 H MCHC 35.8 RDW 12.8 Plt Count MPV Absolute Neuts (auto) Neutrophils % Lymphocytes % Monocytes % Eosinophils % Basophils % Nucleated RBC % Plt Clumps, Citrate Platelet Comment Mod plt clumping Sodium 128 L Potassium 4.1 Chloride 85 L Carbon Dioxide 21 Anion Gap 22 H BUN 22 H Creatinine 1.3 Creat Clearance w eGFR 55.23 Random Glucose 176 H Calcium 9.0 Total Bilirubin 0.8 AST 233 H ALT 156 H Alkaline Phosphatase 134 H Ammonia Total Protein 8.7 H Albumin 4.1 RPR Titer Nonreactive 07/14/18 07/14/18 07/15/18 07:30 07:30 07:00 WBC 3.4 L RBC 3.50 L Hgb 11.7 Hct 35.7 MCV 101.8 H MCH 33.5 MCHC 32.9 RDW 12.9 Plt Count 72 L D MPV 10.8 D Absolute Neuts (auto) 1.3 L Neutrophils % 39.0 L Lymphocytes % 37.6 D Monocytes % 21.5 H Eosinophils % 1.3 Basophils % 0.6 D Nucleated RBC % 0 Plt Clumps, Citrate Platelet Comment Sodium 129 L Potassium 3.4 L Chloride 91 L Carbon Dioxide 30 Anion Gap 8 BUN 19 H Creatinine 1.1 Creat Clearance w eGFR > 60 Random Glucose 274 H Calcium 9.7 Total Bilirubin 0.6 AST 98 H ALT 89 H Alkaline Phosphatase 99 Ammonia 51.90 H Total Protein 6.9 Albumin 3.4 RPR Titer 07/15/18 07/15/18 07/15/18 07:00 07:00 08:00 WBC RBC Hgb Hct MCV MCH MCHC RDW Plt Count Cancelled MPV Absolute Neuts (auto) Neutrophils % Lymphocytes % Monocytes % Eosinophils % Basophils % Nucleated RBC % Plt Clumps, Citrate 52.0 L Platelet Comment Sodium 133 L Potassium 3.8 Chloride 94 L Carbon Dioxide 32 Anion Gap 8 BUN 16 Creatinine 0.8 Creat Clearance w eGFR > 60 Random Glucose 179 H Calcium 10.5 H Total Bilirubin AST ALT Alkaline Phosphatase Ammonia 78.80 H Total Protein Albumin RPR Titer LABS REVIEWED: K+ 3.8 AFTER REPLACEMENT NA 133, IMPROVED FROM 129 PLTS 52 AMMONIA 78.80 DISCUSSED WITH PATIENT LAB RESULTS AND RECOMMENDATION TO HOLD DISCHARGE FOR OBSERVATION. PATIENT AGREED WITH PLAN. WILL CONTINUE LACTULOSE AND REPEAT AMMONIA LEVEL TOMORROW. PATIENT ALSO RECOMMENDED TO FOLLOW UP WITH PCP WITHIN ONE WEEK TIME FRAME ONCE DISCHARGED FORM DETOX. NURSING AND COUNSELING STAFF INFORMED OF UPDATE.
[2018-07-15 15:32] LABS: ANISOCYTOSIS 0; MACROCYTOSIS 0; PLATELET ESTIMATE DECREASED
[2018-07-15] MEDS: chlordiazePOXIDE HCL 10 MG CAPSULE PO SCH ×2 (16:59→22:11)
[2018-07-15] MEDS: THIAMINE HCL 100 MG TABLET (FP) PO SCH (22:11)
[2018-07-16] MEDS: chlordiazePOXIDE HCL 10 MG CAPSULE PO SCH ×2 (05:44→10:05)
[2018-07-16] MEDS: LACTULOSE 20 GM/30 ML UDC (FOR ORAL USE ONLY) PO SCH ×3 (05:44→22:34)
[2018-07-16] MEDS: PRENATAL VITAMINS W/ FOLIC ACID TABLET (FP) PO SCH (10:04)
[2018-07-16] MEDS: PANTOPRAZOLE 40 MG TABLET (FP) PO SCH (10:04)
[2018-07-16] MEDS: ABACAVIR SULFATE 300 MG TABLET PO SCH (10:04)
[2018-07-16] MEDS: SELENIUM SULFIDE 2.5% LOTION 4 OZ. TP SCH (10:07)
--- NOTE | 2018-07-16 13:00 | PN ---
[facility] Progress Note (SOAP) Subjective: aler,irritable,anxious,interrupted sleep Objective: 07/16/18 12:58 Vital Signs Temperature 97.8 F 07/16/18 09:32 Pulse Rate 92 H 07/16/18 09:32 Respiratory Rate 16 07/16/18 09:32 Blood Pressure 91/64 07/16/18 09:32 O2 Sat by Pulse Oximetry (%) 07/16/18 12:59 ammonia level 78.80 refused ammonioa level this morning Assessment: 07/16/18 13:01 withdrawal symptom Plan: continue lactulose,repeat cmp,ammonia level in am
[2018-07-16] MEDS: THIAMINE HCL 100 MG TABLET (FP) PO SCH (22:35)
[2018-07-17] MEDS: LACTULOSE 20 GM/30 ML UDC (FOR ORAL USE ONLY) PO SCH (06:30)
[2018-07-17 09:21] VITALS: BP 118/75; PULSE 104; TEMP 98
[2018-07-17] MEDS: PRENATAL VITAMINS W/ FOLIC ACID TABLET (FP) PO SCH (10:16)
[2018-07-17] MEDS: PANTOPRAZOLE 40 MG TABLET (FP) PO SCH (10:16)
[2018-07-17] MEDS: SELENIUM SULFIDE 2.5% LOTION 4 OZ. TP SCH (10:17)
[2018-07-17] MEDS: ABACAVIR SULFATE 300 MG TABLET PO SCH (10:17)
[2018-07-17 10:32] LABS: ALBUMIN 3.8 g/dl (3.4-5.0); ALK PHOS 92 U/L (45-117); ANION GAP 5 MMOL/L (8-16); BILIRUBIN,TOTAL 0.4 mg/dL (0.2-1); BLOOD UREA NITROGEN 9 mg/dL (7-18); CALCIUM 9.8 mg/dL (8.5-10.1); CHLORIDE 97 mmol/L (98-107); CO2 33 mmol/L (21-32); CREATININE 0.9 mg/dL (0.55-1.3); GLUCOSE,RANDOM 133 mg/dL (74-106); POTASSIUM 4.4 mmol/L (3.5-5.1); SGOT/AST 148 U/L (15-37); SGPT/ALT 119 U/L (13-61); SODIUM 134 mmol/L (136-145); TOT PROT 7.3 g/dl (6.4-8.2)
[2018-07-17 11:08] LABS: INR 1.03 (0.83-1.09); PROTHROMBIN TIME (PATIENT) 12.2 SEC (9.7-13.0)
--- NOTE | 2018-07-17 12:53 | DS ---
[facility] Detox Discharge Summary Admission Date: 07/12/18 Discharge Date: 07/17/18 - History Present History: Alcohol Dependence Additional Comments: Patient requested to be discharged right away because he is here too long. Patient's discharge was held yesterday due to increased ammonia level. Patient denies any symptoms. He is A, A, Ox3, in nad, vss, ambulating freely on unit. Patient instructed to see his PCP in 1 week and that eRx for lactulose will be sent to his pharmacy. Pertinent Past History: Alcohol dependence GERD HIV HTN - Physical Exam Results Vital Signs: Vital Signs Temperature 98.0 F 07/17/18 09:21 Pulse Rate 104 H 07/17/18 09:21 Respiratory Rate 16 07/17/18 09:21 Blood Pressure 118/75 07/17/18 09:21 O2 Sat by Pulse Oximetry (%) Pertinent Admission Physical Exam Findings: Withdrawal symptoms Laboratory Tests 07/13/18 07/13/18 07/13/18 05:45 05:45 05:45 WBC 5.2 RBC 3.74 L Hgb 13.7 Hct 38.4 D MCV 102.6 H MCH 36.7 H MCHC 35.8 RDW 12.8 Plt Count MPV Absolute Neuts (auto) Neutrophils % Neutrophils % (Manual) Band Neutrophils % Lymphocytes % Lymphocytes % (Manual) Monocytes % Monocytes % (Manual) Eosinophils % Eosinophils % (Manual) Basophils % Basophils % (Manual) Myelocytes % (Man) Promyelocytes % (Man) Blast Cells % (Manual) Nucleated RBC % Metamyelocytes Hypochromia Platelet Estimate Plt Clumps, Citrate Platelet Comment Mod plt clumping Polychromasia Poikilocytosis Anisocytosis Microcytosis Macrocytosis PT with INR INR Sodium 128 L Potassium 4.1 Chloride 85 L Carbon Dioxide 21 Anion Gap 22 H BUN 22 H Creatinine 1.3 Creat Clearance w eGFR 55.23 Random Glucose 176 H Calcium 9.0 Total Bilirubin 0.8 AST 233 H ALT 156 H Alkaline Phosphatase 134 H Ammonia Total Protein 8.7 H Albumin 4.1 RPR Titer Nonreactive 07/14/18 07/14/18 07/15/18 07:30 07:30 07:00 WBC 3.4 L RBC 3.50 L Hgb 11.7 Hct 35.7 MCV 101.8 H MCH 33.5 MCHC 32.9 RDW 12.9 Plt Count 72 L D MPV 10.8 D Absolute Neuts (auto) 1.3 L Neutrophils % 39.0 L Neutrophils % (Manual) 44.4 Band Neutrophils % 0.0 Lymphocytes % 37.6 D Lymphocytes % (Manual) 39.4 D Monocytes % 21.5 H Monocytes % (Manual) 15 H Eosinophils % 1.3 Eosinophils % (Manual) 0.0 D Basophils % 0.6 D Basophils % (Manual) 1.0 Myelocytes % (Man) 0 Promyelocytes % (Man) 0 Blast Cells % (Manual) 0 Nucleated RBC % 0 Metamyelocytes 0 D Hypochromia 0 Platelet Estimate Decreased Plt Clumps, Citrate Platelet Comment Present Polychromasia 0 Poikilocytosis 0 Anisocytosis 0 Microcytosis 0 Macrocytosis 0 PT with INR INR Sodium 129 L Potassium 3.4 L Chloride 91 L Carbon Dioxide 30 Anion Gap 8 BUN 19 H Creatinine 1.1 Creat Clearance w eGFR > 60 Random Glucose 274 H Calcium 9.7 Total Bilirubin 0.6 AST 98 H ALT 89 H Alkaline Phosphatase 99 Ammonia 51.90 H Total Protein 6.9 Albumin 3.4 RPR Titer 07/15/18 07/15/18 07/15/18 07:00 07:00 08:00 WBC RBC Hgb Hct MCV MCH MCHC RDW Plt Count Cancelled MPV Absolute Neuts (auto) Neutrophils % Neutrophils % (Manual) Band Neutrophils % Lymphocytes % Lymphocytes % (Manual) Monocytes % Monocytes % (Manual) Eosinophils % Eosinophils % (Manual) Basophils % Basophils % (Manual) Myelocytes % (Man) Promyelocytes % (Man) Blast Cells % (Manual) Nucleated RBC % Metamyelocytes Hypochromia Platelet Estimate Plt Clumps, Citrate 52.0 L Platelet Comment Polychromasia Poikilocytosis Anisocytosis Microcytosis Macrocytosis PT with INR INR Sodium 133 L Potassium 3.8 Chloride 94 L Carbon Dioxide 32 Anion Gap 8 BUN 16 Creatinine 0.8 Creat Clearance w eGFR > 60 Random Glucose 179 H Calcium 10.5 H Total Bilirubin AST ALT Alkaline Phosphatase Ammonia 78.80 H Total Protein Albumin RPR Titer 07/17/18 07/17/18 07/17/18 07:30 07:30 07:30 WBC RBC Hgb Hct MCV MCH MCHC RDW Plt Count MPV Absolute Neuts (auto) Neutrophils % Neutrophils % (Manual) Band Neutrophils % Lymphocytes % Lymphocytes % (Manual) Monocytes % Monocytes % (Manual) Eosinophils % Eosinophils % (Manual) Basophils % Basophils % (Manual) Myelocytes % (Man) Promyelocytes % (Man) Blast Cells % (Manual) Nucleated RBC % Metamyelocytes Hypochromia Platelet Estimate Plt Clumps, Citrate Platelet Comment Polychromasia Poikilocytosis Anisocytosis Microcytosis Macrocytosis PT with INR 12.20 INR 1.03 Sodium 134 L Potassium 4.4 Chloride 97 L Carbon Dioxide 33 H Anion Gap 5 L BUN 9 Creatinine 0.9 Creat Clearance w eGFR > 60 Random Glucose 133 H Calcium 9.8 Total Bilirubin 0.4 AST 148 H ALT 119 H Alkaline Phosphatase 92 Ammonia 56.00 H Total Protein 7.3 Albumin 3.8 RPR Titer Labs reviewed: elevated glucose most likely due to alcohol withdrawal, instructed to follow up with PCP in 1 week - Treatment Hospital Course: Detox Protocol Followed, Detoxed Safely, Responded well, Discharged Condition Good - Medication Discharge Medications: Ambulatory Orders Pantoprazole Sodium [Protonix -] 40 mg PO DAILY #30 cap 12/08/16 Abacavir Sulfate/Lamivudine [Epzicom Tablet] 1 tablet PO DAILY 04/14/18 Lactulose (Oral Use) [Cephulac -] 20 gm PO DAILY 5 Days #1 bottle 07/17/18 - Diagnosis (1) Hyperammonemia Status: Acute (2) Hyperglycemia Status: Acute (3) Alcohol dependence with uncomplicated withdrawal Status: Acute (4) GERD (gastroesophageal reflux disease) Status: Chronic Qualifiers: Esophagitis presence: without esophagitis Qualified Code(s): K21.9 - Gastro -esophageal reflux disease without esophagitis (5) Human immunodeficiency virus infection Status: Chronic (6) Hypertension Status: Chronic Qualifiers: Hypertension type: essential hypertension - AMA Did Patient Leave Against Medical Advice: No (F/U with PCP in 1 week)
== END 2018-07-17 11:05 | disposition home or self-care (01) | DRG 897 ==
LOC: YASAS 13:19 → Y3N 17:15
PROC: HZ2ZZZZ Detoxification Services for Substance Abuse Treatment (ICD-10-PCS; principal; 2018-07-12)
DX: F10.230 Alcohol dependence with withdrawal, uncomplicated (principal); E87.1 Hypo-osmolality and hyponatremia; E72.20 Disorder of urea cycle metabolism, unspecified; Z21 Asymptomatic human immunodeficiency virus [HIV] infection status; I10 Essential (primary) hypertension; K21.9 Gastro-esophageal reflux disease without esophagitis; E87.6 Hypokalemia; R73.9 Hyperglycemia, unspecified; B18.2 Chronic viral hepatitis C
CPT/HCPCS: 36415; 80048; 80053; 82140; 85025; 85027; 85032; 85610; 86593